=== PATIENT | male | born 1945 | race African-American/Black ===

== ENCOUNTER 2022-08-29 13:20 | Emergency (ER) | payer MEDICARE, SELFPAY ==
--- NOTE | 2022-08-29 13:32 | ED_ITS ---
HPI - General Adult General Chief complaint: Skin/Abscess/Foreign Body Stated complaint: Rash all over body Time Seen by Provider: 08/29/22 13:34 Source: patient Mode of arrival: ambulatory Limitations: no limitations History of Present Illness HPI narrative: Patient is a 76 year old assigned male at with a history of cardiomyopathy presenting to the emergency department today with an eczema flair. Patient st ates that he has very dry skin everywhere that is very itchy. Patient denies any dizziness, lightheadedness, abdominal pain, nausea, vomiting, fever, chills, blurry vision, double vision, loss of vision, chest pain, difficulty breathing, shortness of breath, back pain, night sweats, pain with urination, increased urinary frequency, increased urinary urgency, blood in his urine or stool, syncope or a near syncopal episode, recent trauma or falls, bowel incontinence, bladder incontinence, bowel retention, bladder retention, or any other complaints at this time. Onset (ago): day(s) Severity: mild Severity scale (1-10): 2 Relieving factors: none Exacerbating factors: none Associated symptoms: denies other symptoms Treatments prior to arrival: none Related Data Previous Rx's Medication Instructions Recorded prednisone 20 mg tablet 20 mg PO DAILY 7 days #7 tabs 08/29/22 Allergies Allergy/AdvReac Type Severity Reaction Status Date / Time Penicillins [PENICILLINS] Allergy Intermediate HIVES Verified 08/29/22 13:33 Review of Systems Constitutional: Constitutional: Reports no additional constitutional complaints, Denies chills, Denies fever(s) and Denies night sweats Eyes: Eyes: Reports no additional eye complaints, Denies blurry vision, Denies change in vision, Denies diplopia, Denies eye discharge, Denies loss of vision and Denies eye pain ENT: Denies dizziness Cardiovascular: Cardiovascular: Reports no additional cardiovascular complaints, Denies chest pain, Denies lightheadedness, Denies Loss of Consciousness and Denies dyspnea Respiratory: Respiratory: Reports no additional respiratory complaints and Denies dyspnea Gastrointestinal: Gastrointestinal: Reports no additional gastrointestinal complaints, Denies abdominal pain, Denies melena, Denies hematochezia, Denies change in bowel habits and Denies change in stool character Genitourinary: Genitourinary: Reports no additional male genitourinary complaints, Denies hematuria, Denies oliguria, Denies difficulty urinating, Denies dysuria, Denies urinary frequency, Denies urinary hesitancy, Denies urinary incontinence and Denies urinary urgency Musculoskeletal: Musculoskeletal: Reports no additional musculoskeletal complaints, Denies numbness and Denies tingling Integumentary/Breasts: Skin/Breast: Reports dry skin Neurologic: Denies dizziness, Denies loss of vision, Denies numbness and Denies tingling Psychiatric: Psychiatric: Reports no additional psychiatric complaints Endocrine: Endocrine: Reports no additional endocrine complaints Hematologic/Lymphatic: Hematologic/Lymphatic: Reports no additional hematologic/lymphatic complaints Allergic/Immunologic: Allergic/Immunologic: Reports no additional allergic/immunologic complaints [facility] Past Medical History Attestation statement: The following information was validated with the patient. Source: old records reviewed and nursing notes reviewed Medical History Ischemic cardiomyopathy Social History Social History Advance Directives: No Advance Directives Information Provided: Yes Physical Exam ED Vital Signs: Vital Signs - 24 hr 08/29/22 13:33 Temperature 97.6 F Pulse Rate 65 Respiratory Rate 16 Blood Pressure 142/55 H Pulse Oximetry 98 Oxygen Delivery Method Room Air BMI result Body Mass Index 34.5 Const General: cooperative, no acute distress, alert and awake Nutritional Appearance: well nourished Orientation/consciousness: patient oriented x3 Limitations: no limitations HENMT Head: Yes normal to inspection and Yes atraumatic Ears: hearing grossly normal bilaterally and external ears normal General nose exam: Normal external nose present, no nasal discharge noted and no epistaxis Face and sinus: Yes normal facial exam, No abrasion and No laceration Mouth: Normal oral and palatal mucosa present, no drooling and no muffled voice Eyes General: appearance normal, both eyes and all related structures Periorbital: periorbital findings normal Eyelids: Yes eyelids normal Conjunctivae: conjunctivae normal Pupils: Equal, round and reactive pupils present EOM: EOMs intact bilaterally Neck Neck: Yes normal visual inspection, Yes full ROM and Yes no lymphadenopathy Chest Chest palpation & inspection: normal inspection of the chest Resp Effort & Inspection: normal respiratory effort and able to speak in complete sentences Auscultation: clear to auscultation bilaterally Cardio Rate: regular rate Rhythm: regular rhythm GI Inspection: Yes normal to inspection Neuro General: patient oriented x3 and moves all extremities Cranial nerves: Yes Equal, round and reactive pupils present Cognition (Neuro): normal cognition Motor exam (neuro): 5/5 motor strength present throughout Sensory Exam: Normal double simultaneous stimulation for sensation Coordination: [id number] test normal Extrem General: Yes normal to inspection, Yes full ROM and Yes capillary refill normal Psych Appearance: grossly normal Mental Status: mental status grossly normal Affect: normal affect Attitude: cooperative Thought process: Normal thought process present Thought content: Normal thought content present Insight: Good insight present (Psych) Medical Decision Making Medical Decision Making MDM Narrative: Patient is a 76 year old assigned male at with a history of cardiomyopathy presenting to the emergency department today with en eczema flare. Patient's physical exam showed obviously dry skin but was otherwise unremarkable. I explained my physical exam findings to the patient. I answered all questions asked by the patient. I stressed the importance of the patient taking his medication as prescribed. I stressed the importance of the patient following up with his primary care provider. I stressed the importance of the patient returning to the emergency department immediately if his symptoms were to worsen or if he were to develop any dizziness, shortness of breath, difficulty breathing, chest pain, blurry vision, loss of vision, nausea, vomiting, abdominal pain, fever, chills, back pain, or any other complaints. Patient verbalized agreement and understanding with this treatment plan and discharge. Differential Diagnosis Differential Diagnoses: The differential diagnosis associated with the presentation includes eczema, dry skin Discharge Plan Discharge Clinical Impression: Eczema Patient Disposition: Home, Self-Care Instructions: Dermatitis (ED) Additional Instructions: Follow up with your primary care provider and if symptoms persist, a medical hospital sales. Return to the emergency department immediately if your symptoms worsen or if you develop any dizziness, shortness of breath, difficulty breathing, chest pain, blurry vision, loss of vision, nausea, vomiting, abdominal pain, fever, chills, back pain, or any other complaints. Prescriptions: New prednisone 20 mg tablet 20 mg PO DAILY 7 Days Qty: 7 0RF Print Language: Swiss
[2022-08-29 13:33] VITALS: BP 142/55; PULSE 65; RESP 16; TEMP 36.4; O2SAT 98; BMI 34.5
== END 2022-08-29 13:46 | disposition home or self-care (01) ==
PROVIDERS: Emergency Provider Emergency Medicine
DX: L30.9 Dermatitis, unspecified (principal)
CPT/HCPCS: 99282; 99283

== ENCOUNTER → 2023-02-02 23:59 | Outpatient (BNV) | payer MEDICARE, SELFPAY ==
--- NOTE | 2023-02-06 14:14 | A.OFFVIS_ITS ---
Intake Intake Visit Reasons: Remote ICD Check-[employer] Allergies Penicillins [PENICILLINS] Allergy (Intermediate, Verified 08/29/22 13:33) HIVES COUNT INCLUDES [facility] Medical History Ischemic cardiomyopathy Social History Advance Directives: No Advance Directives Information Provided: Yes Office Procedures Cardiac Device Check Cardiac Device Check Details: Date of service 02/02/2023; Battery life 3 years; normal lead parameters; no treated VT/VF; ; normal ICD function. [id number] Cardiac Interrogation, implant defibrillator w/interim Procedure code (CPT) selection complete Assessment & Plan Assessment & Plan (1) Ischemic cardiomyopathy: Code(s): I25.5 - Ischemic cardiomyopathy Coding Level of Care Code Procedure Only Diagnoses Ischemic cardiomyopathy I25.5 CPT Codes Cardiac Device Check - Cardiac Device 13: [id number] Cardiac Interrogation, implant defibrillator w/interim ([id number])
== END ==
PROVIDERS: Visit Provider Internal Medicine
DX: I25.5 Ischemic cardiomyopathy (principal)
CPT/HCPCS: 93295

== ENCOUNTER → 2023-05-04 23:59 | Outpatient (BNV) | payer MEDICARE, SELFPAY ==
--- NOTE | 2023-05-06 13:13 | A.OFFVIS_ITS ---
Intake Intake Visit Reasons: Remote ICD Check- [employer] Allergies Penicillins [PENICILLINS] Allergy (Intermediate, Verified 08/29/22 13:33) HIVES [facility] Medical History Ischemic cardiomyopathy Social History Advance Directives: No Advance Directives Information Provided: Yes Office Procedures Cardiac Device Check Cardiac Device Check Details: Date of service 05/04/2023; Battery life 3 years; normal lead parameters; no treated VT/VF; ; normal ICD function. [id number] Cardiac Interrogation, implant defibrillator w/interim Procedure code (CPT) selection complete Assessment & Plan Assessment & Plan (1) Ischemic cardiomyopathy: Code(s): I25.5 - Ischemic cardiomyopathy Coding Level of Care Code Procedure Only Diagnoses Ischemic cardiomyopathy I25.5 CPT Codes Cardiac Device Check - Cardiac Device 13: [id number] Cardiac Interrogation, implant defibrillator w/interim ([id number])
== END ==
PROVIDERS: Visit Provider Internal Medicine
DX: I25.5 Ischemic cardiomyopathy (principal); Z95.810 Presence of automatic (implantable) cardiac defibrillator
CPT/HCPCS: 93295

== ENCOUNTER 2023-06-03 08:53 | Outpatient (REF) | payer MEDICARE, SELFPAY ==
[2023-06-03 12:08] LABS: Cholesterol 94 mg/dL (<200); Estimated Average Glucose 123 mg/dL; HDL Cholesterol 31 mg/dL (>40); Hemoglobin A1c % 5.9 % (<6.0); LDL Cholesterol Calculated 52 mg/dL (<100); Triglycerides 56 mg/dL (<150)
[2023-06-03 12:49] LABS: Anion Gap 13 (12-20); Blood Urea Nitrogen 25 mg/dL (9-16); Calcium 8.9 mg/dL (8.4-10.2); Carbon Dioxide 26 mmol/L (22-29); Chloride 107 mmol/L (96-108); Estimated Glomerular Filt Rate 57; Glucose Random 87 mg/dL (60-115); Potassium 4.4 mmol/L (3.3-5.1); Sodium 142 mmol/L (135-145); Vitamin D 25-OH Total 27.9 ng/mL (>30)
[2023-06-03 13:39] LABS: Reflex LDLD? No
== END 2023-06-03 08:54 | disposition home or self-care (01) ==
LOC: HO.HHCL 08:53
PROVIDERS: Visit Provider Internal Medicine
DX: E66.9 Obesity, unspecified (principal); E55.9 Vitamin D deficiency, unspecified; I11.0 Hypertensive heart disease with heart failure; I50.22 Chronic systolic (congestive) heart failure
CPT/HCPCS: 36415; 80048; 80061; 82306; 83036

== ENCOUNTER → 2023-08-03 23:59 | Outpatient (BNV) | payer MEDICARE, SELFPAY ==
--- NOTE | 2023-08-04 11:35 | A.OFFVIS_ITS ---
Intake Intake Visit Reasons: Remote ICD Check- [employer] Allergies Penicillins [PENICILLINS] Allergy (Intermediate, Verified 08/29/22 13:33) HIVES [facility] Medical History Ischemic cardiomyopathy Office Procedures Cardiac Device Check Cardiac Device Check Details: Date of service 08/03/2023; Battery life 2.5 years; normal lead parameters; no treated VT/VF; ; normal ICD function. [id number] Cardiac Interrogation, implant defibrillator w/interim Procedure code (CPT) selection complete Assessment & Plan Assessment & Plan (1) Ischemic cardiomyopathy: Code(s): I25.5 - Ischemic cardiomyopathy Plan x Coding Level of Care Code Procedure Only Diagnoses Ischemic cardiomyopathy I25.5 CPT Codes Cardiac Device Check - Cardiac Device 13: [id number] Cardiac Interrogation, implant defibrillator w/interim ([id number])
== END ==
PROVIDERS: Visit Provider Internal Medicine
DX: I25.5 Ischemic cardiomyopathy (principal); Z95.810 Presence of automatic (implantable) cardiac defibrillator
CPT/HCPCS: 93295

== ENCOUNTER → 2023-11-02 23:59 | Outpatient (BNV) | payer MEDICARE, SELFPAY ==
--- NOTE | 2023-11-07 17:23 | A.OFFVIS_ITS ---
Intake Visit Reasons: [employer] ICD check- [employer] Allergies Penicillins [PENICILLINS] Allergy (Intermediate, Verified 08/29/22 13:33) HIVES [facility] Medical History Ischemic cardiomyopathy Office Procedures Cardiac Device Check Cardiac Device Check Details: Date of service 11/02/2023; Battery life 2.5 years; normal lead parameters; no treated VT/VF; ; normal ICD function. [id number] Cardiac Interrogation, implant defibrillator w/interim Procedure code (CPT) selection complete Assessment & Plan Assessment & Plan (1) Ischemic cardiomyopathy: Code(s): I25.5 - Ischemic cardiomyopathy Category: Medical Plan x Coding Level of Care Code Procedure Only Diagnoses Ischemic cardiomyopathy I25.5 CPT Codes Cardiac Device Check - Cardiac Device 13: [id number] Cardiac Interrogation, implant defibrillator w/interim ([id number])
== END ==
PROVIDERS: Visit Provider Internal Medicine
DX: I25.5 Ischemic cardiomyopathy (principal); Z95.810 Presence of automatic (implantable) cardiac defibrillator
CPT/HCPCS: 93295

== ENCOUNTER 2023-11-20 12:27 | Inpatient (IN) | payer MEDICARE, SELFPAY ==
--- NOTE | 2023-11-20 | ECG_ITS ---
Test Reason : CHF, BASELINE Blood Pressure : / mmHG Vent. Rate : 084 BPM Atrial Rate : 000 BPM P-R Int : 000 ms QRS Dur : 106 ms QT Int : 368 ms P-R-T Axes : 000 -40 173 degrees QTc Int : 434 ms Atrial fibrillation with premature ventricular or aberrantly conducted complexes Left axis deviation Anterolateral infarct (cited on or before 04-AUG-2019) Abnormal ECG When compared with ECG of 04-AUG-2019 16:04, Atrial fibrillation has replaced Sinus rhythm QRS voltage has decreased Questionable change in initial forces of Lateral leads Referred By: Ayaan Henderson Electronically Signed By:DALE WHITEHEAD MD
--- NOTE | ~2023-11-20 | CT_ITS ---
EXAMINATION: CT FOREARM WITH CONTRAST, RIGHT CLINICAL INFORMATION: cellulitis, ?compartment syndrome, ivda COMPARISON: None available. TECHNIQUE: Helical CT through the right forearm with coronal and sagittal reformats after the uneventful administration of 85 mL Omnipaque [address] examination was performed using dose optimization techniques as appropriate, variously including the following: *Automated exposure control *Adjustment of mA and/or kV according to patient size (this includes techniques or standardized protocols for targeted exams where dose is matched to indication/reason for exam; i.e. extremities or head) *Use of iterative reconstruction technique DLP: 118 mGy-cm FINDINGS: The brachial arteries are patent. There is a short segments of the ulnar and radial artery with diminutive opacification, though this could represent artifact. Otherwise, the below elbow arteries are patent to the hand. The visualized superficial and deep venous system appears patent. There is extensive diffuse circumferential soft tissue edema involving the entirety of the visualized arm. No focal soft tissue or intramuscular fluid collection to suggest abscess. No acute osseous abnormality. CT/CT forearm RT w IV con IMPRESSION: 1. Extensive diffuse circumferential soft tissue edema involving the entirety of the visualized arm. No focal soft tissue or intramuscular fluid collection to suggest abscess. 2. Short segments of the ulnar and radial artery with diminutive opacification, though this could represent artifact. Otherwise, the below elbow arteries are patent to the hand. Clinical correlation for compartment syndrome would be helpful.
--- NOTE | ~2023-11-20 | US_ITS ---
EXAMINATION: US TRIPLEX UPPER EXTREMITY, RIGHT CLINICAL INFORMATION: Swelling and pain COMPARISON: None available. TECHNIQUE: Color-flow triplex imaging with spectral analysis and compression Doppler was performed on the right upper extremity. FINDINGS: The right internal jugular, subclavian, and axillary veins are patent and free of thrombus. The imaged segment of the right brachiocephalic vein is patent. Spectral doppler waveforms are normal. The brachial, basilic, cephalic, radial, and ulnar veins are patient and compressible. US/US venous duplex UE RT IMPRESSION: No evidence of deep venous thrombosis involving the right upper extremity.
--- NOTE | ~2023-11-20 | US_ITS ---
EXAMINATION: US VENOUS WITH DOPPLER UPPER EXTREMITY, RIGHT CLINICAL INFORMATION: Swelling evaluate for deep vein thrombosis COMPARISON: CT right forearm November 2023 TECHNIQUE: Ultrasound of the upper extremity is performed using compression sonography and color and pulse Doppler flow with assessment of augmentation of flow. There is also imaging and Doppler assessment of the jugular and subclavian veins. Spectral analysis with color-flow imaging is performed. FINDINGS: Respiratory variation, normal compression, and augmented flow are noted throughout the upper extremity including the axillary, brachial, cubital, and radial and ulnar veins. There is normal flow in the internal jugular and subclavian veins. There is no visible deep or superficial thrombophlebitis. If the patient's symptoms progress, a followup ultrasound in 5 -7 days might be of value to exclude proximal propagation from a nonvisualized distal arm vein. In the subcutaneous soft tissues there is a cobblestone appearance compatible with edema US/US venous duplex UE RT IMPRESSION: No DVT demonstrated in the right upper extremity Probable edema in the subcutaneous soft tissues.
--- NOTE | ~2023-11-20 | XR_ITS ---
EXAMINATION: XR CHEST CLINICAL INFORMATION: Reason for Exam Anasarca COMPARISON: Chest radiograph 08/04/2019 TECHNIQUE: One view of the chest FINDINGS: Lines and tubes: Left chest wall single-lead cardiac AICD. EKG leads overlie the patient. Clear lungs. No pleural effusion. No pneumothorax. Cardiac silhouette is mildly enlarged unchanged from prior. XR/XR chest 1V IMPRESSION: 1. Clear lungs. 2. Cardiac silhouette is mildly enlarged unchanged from prior.
--- NOTE | ~2023-11-20 | CT_ITS ---
EXAMINATION: CT head/brain wo IV con CLINICAL INFORMATION: AMS COMPARISON: CT head 08/04/2019 TECHNIQUE: Contiguous axial imaging was performed from the skull base to vertex without intravenous contrast. This CT examination was performed using dose optimization techniques as appropriate, variously including the following: * Automated exposure control * Adjustment of mA and/or kV according to patient size (this includes techniques or standardized protocols for targeted exams where dose is matched to indication/reason for exam; i.e. extremities or head) * Use of iterative reconstruction technique DLP: 748 mGy-cm. FINDINGS: There is no evidence of acute intracranial hemorrhage or territorial infarction. Nicole to white matter differentiation is well preserved. No abnormal mass effect or midline shift is seen. No extra-axial fluid collections are identified. No hydrocephalus. Mineralizations of the left greater than right basal ganglia. Proportional prominence of the ventricles and sulcal spaces is consistent with mild to moderate volume loss. Patchy periventricular and deep white matter hypoattenuation is consistent with moderate small vessel ischemic changes. The cerebellar tonsils are well positioned. No acute osseous or soft tissue abnormality. Motion artifact limits evaluation of the orbits and paranasal sinuses. There is a small mucus retention cyst in the posterior right maxillary sinus. The mastoid air cells are well-aerated. CT/CT head/brain wo IV con IMPRESSION: 1. No acute intracranial pathology. 2. Chronic small vessel ischemic disease and volume loss.
[2023-11-20 12:48] VITALS: BP 162/98; BP 177/96; PULSE 82; PULSE 86; RESP 18; TEMP 36.6; O2SAT 100; O2SAT 97; BMI 35.3
[2023-11-20 13:56] LABS: MANUAL DIFF FLAG NO
--- NOTE | 2023-11-20 13:57 | ED_ITS ---
HPI - General Adult General Chief complaint: General Medical Stated complaint: BUE SWELLING,BLE SWELLING/WEEPING,SOB,HEROIN @7AM Time Seen by Provider: 11/20/23 13:32 Source: patient and EMS Mode of arrival: EMS Limitations: physical limitation History of Present Illness ED Provider: DR. Jones HPI narrative: A 78-year-old male brought in from home by EMS after neighbor called PD to check on the patient. Apparently patient is not caring for himself well, patient lives home alone no family around stated that a friend come visit him daily and provide him with heroin everyday patient admitted to snorting 2 bags of heroin today. denies IV D use, admitted to sedentary life style. Patient during the exam appeared disheveled and unkempt with diffuse edema, patient is complaining of right upper extremity swelling and pain. Patient is a poor historian unable to give sufficient information but able to decline fever. Patient complained of shortness of breath especially if he lays supine. Related Data Home Medications ?Medication ?Instructions ?Recorded ?Confirmed atorvastatin 40 mg tablet 40 mg PO BEDTIME 11/20/23 11/20/23 carvedilol 25 mg tablet 25 mg PO BIDWM 11/20/23 11/20/23 ergocalciferol (vitamin D2) 1,250 1,250 mcg PO PATTERSON@0900 11/20/23 11/20/23 mcg (50,000 unit) capsule lisinopril 40 mg tablet 40 mg PO BEDTIME 11/20/23 11/20/23 Allergies Allergy/AdvReac Type Severity Reaction Status Date / Time Penicillins [PENICILLINS] Allergy Intermediate HIVES Verified 11/20/23 12:49 Review of Systems 2 Review of Systems: All other systems are reviewed and are negative Constitutional: Reports as per HPI and Reports no additional constitutional complaints Eyes: Reports as per HPI and Reports no additional eye complaints Reports system reviewed and no additional complaints, except as documented Cardiovascular: Reports as per HPI and Reports no additional cardiovascular complaints Respiratory: Reports as per HPI and Reports no additional respiratory complaints Gastrointestinal: Reports as per HPI and Reports no additional gastrointestinal complaints Genitourinary: Reports no additional female genitourinary complaints Musculoskeletal: Reports no additional musculoskeletal complaints Skin/Breast: Reports system reviewed and no additional complaints, except as docu Psychiatric: Reports no additional psychiatric complaints Endocrine: Reports no additional endocrine complaints Hematologic/Lymphatic: Reports no additional hematologic/lymphatic complaints Allergic/Immunologic: Reports no additional allergic/immunologic complaints Reports system reviewed and no additional complaints, except as documented and Reports Abnormal speech present [facility] Past Medical History Medical History Ischemic cardiomyopathy Social History Social History Household Members: None Housing: Apartment Do you presently have visiting nurse or other home services: No Patient Tobacco Use Status: Never used Tobacco Smoked in Last 30 Days: No Patient Interested in Nicotine Replacement: No Patient Given Instructions on How to Stop Smoking: No Second Hand Smoke Exposure: No Use of substances other than those prescribed or required for medical reasons: Yes Substance Use Type: Heroin Substance Use Frequency: Daily Currently Displaying Signs/Symptoms of Drug Intoxication Withdrawal: No Have you been hit, kicked, punched, or otherwise hurt by someone within the past year? If so, by whom?: No Do you feel safe in your current relationship?: No Current Relationship Is there a partner from a previous relationship who is making you feel unsafe now?: No Are you made to feel afraid or neglected: No Advance Directives: No Advance Directives Information Provided: Yes Do you have a plan to hurt others: No Plan Recently lost weight without trying: Unsure Eating poorly because of decreased appetite: No Nutrition Risks: No Nutritional Risk Poor oral hygiene: Yes Physical Exam ED Vital Signs: Vital Signs - 24 hr 11/20/23 12:48 11/20/23 15:21 11/20/23 17:40 Temperature 97.8 F Pulse Rate 86 85 Respiratory Rate 18 20 Blood Pressure 177/96 H 162/92 H 164/87 H Pulse Oximetry 100 98 Oxygen Delivery Method Room Air Room Air 11/20/23 21:44 Temperature Pulse Rate 87 Respiratory Rate 22 H Blood Pressure 171/90 H Pulse Oximetry 96 Oxygen Delivery Method Room Air BMI result Body Mass Index 35.3 Vital signs have been reviewed and appear to be correct. Blood pressure elevated. Heart rate normal. Respiratory rate normal. Temperature normal. Oxygen saturation normal. Appearance: Disheveled, unkempt, alert, oriented to place. No acute distress. Head: Normal external exam. Normocephalic. Atraumatic. No Velazco signs noted. No raccoon eyes noted Eyes: PERRLA. EOMI. Conjunctiva and sclera normal. Eyelids normal. ENT: TM's Normal. Pharynx normal. Uvula midline. Moist mucous membranes. No trismus noted. No drooling noted. No muffled voice noted. Neck: JVD bilaterally, Normal inspection. Neck supple. FROM. No adenopathy. Thyroid Normal. No meningeal signs. No neck mass noted. CVS: Normal heart rate and rhythm. Heart sound normal. No murmurs noted. Pulses normal throughout. Respiratory: No respiratory distress. Painless inspiration. Breath sounds normal. Bilateral basilar rales. Chest nontender. No accessory muscle usage noted or decreased air movement noted. Abdomen: Soft and nontender. Bowel sounds normal in all 4 quadrants. No distention noted. No organomegaly noted. No visible injury noted. : Significant Penile and scrotal edema Back: No CVA tenderness. Full range of motion noted. Skin: Skin warm and dry. Normal skin color. Normal skin turgor. No rashes/lesions/lacerations noted. Extremities: +3 pitting 4 extremities edema. Extremities exhibit normal range of motion. Diffuse tenderness along her right upper extremity with diffuse edema, no deformity, no step-off, unable to appreciate redness on the exam due to patient's dark skin color. Neuro: Oriented X1 only to place Cranial nerve exam: II-XII are grossly intact No motor deficit. No sensory deficit. Reflexes normal. Course Reevaluation(s) Reevaluation #1: 78-year-old male with anasarca, physical exam and chest x-ray are consistent with congestive heart failure. right arm pain and swelling which i believe a part of generalized anasarca and fluid retention, i don't appreciate cellulitis. lactic acidosis due to chronic ishemic cardiomyopathy, no spesis or septic shock at this moment. Will admit for diuresis. Time: 16:19 Medications Administered Generic Name Dose Route Start Last Admin Trade Name Freq PRN Reason Stop Dose Admin Atorvastatin Calcium 40 mg 11/20/23 21:00 11/20/23 20:45 Atorvastatin Calcium 40 Mg Tablet PO Not Given BEDTIME [facility] Carvedilol 25 mg 11/20/23 18:35 11/20/23 20:45 Carvedilol 25 Mg Tablet PO Not Given BIDWM [facility] Protocol Ergocalciferol 1,250 mcg 11/21/23 09:00 11/21/23 09:51 Ergocalciferol (Vitamin D2) 1,250 Mcg Capsule PO Not Given PATTERSON@0900 [facility] Heparin Sodium (Porcine) 5,000 unit 11/21/23 09:00 11/21/23 09:51 Heparin Sodium,Porcine 5,000 Unit/Ml Vial SUBCUT 5,000 unit Q8H OSCAR Administration Albumin Human 100 mls @ 100 mls/hr 11/20/23 23:00 11/21/23 08:39 Kedbumin 25 % IV 11/21/23 17:59 Infused Q6H [facility] Infusion Furosemide 200 mg/ Sodium 100 mls @ 2.5 mls/hr 11/20/23 23:00 11/21/23 01:42 Chloride IVCONT 5 mg/hr .Q24H OSCAR 2.5 mls/hr Administration 5 MG/HR Ceftriaxone Sodium 1 gm/ 50 mls @ 100 mls/hr 11/21/23 06:00 11/21/23 06:04 Sodium Chloride IV Infused Q24H [facility] Infusion Doxycycline Hyclate 100 mg/ 250 mls @ 166.67 mls/hr 11/21/23 09:45 11/21/23 10:07 Sodium Chloride IV 166.67 mls/hr Q12H [facility] Administration Lisinopril 40 mg 11/20/23 21:00 11/20/23 20:45 Lisinopril 40 Mg Tablet PO Not Given BEDTIME [facility] Protocol Sodium Chloride 3 ml 11/21/23 00:00 11/21/23 08:39 0.9 % Sodium Chloride Flush 3 Ml Syringe IVFLUSH Not Given QSHIFT OSCAR Discontinued Medications Generic Name Dose Route Start Last Admin Trade Name Freq PRN Reason Stop Dose Admin Furosemide 60 mg 11/20/23 13:55 11/20/23 15:21 Furosemide 100 Mg/10 Ml Vial IVPUSH 11/20/23 13:56 60 mg ONCE ONE Administration Protocol Sodium Chloride 1,000 mls @ 999 mls/hr 11/20/23 19:15 11/20/23 21:54 Ns IV 11/20/23 20:15 Infused .Q1H1M ONE Infusion Vancomycin HCl 2,000 mg in 500 mls @ 250 mls/hr 11/20/23 19:15 11/21/23 01:45 Vancomycin/Ns IV 11/20/23 21:14 Infused ONCE ONE Infusion Piperacillin Sod/Tazobactam 100 mls @ 200 mls/hr 11/20/23 19:31 11/20/23 21:54 Sod 4.5 gm/ Sodium Chloride IV 11/20/23 20:00 Infused ONCE ONE Infusion Iohexol 85 ml 11/20/23 20:36 11/20/23 20:37 Iohexol 350 Mg/Ml 100 Ml Infus..Btl IV 11/20/23 20:37 85 ml ONCE ONE Administration Medical Decision Making Medical Decision Making [facility] Narrative: 1900: Hospitalist requested to re-evaluate the patient for right forearm swelling and pain on examination patient has significant cellulitis of the right hand with pain in both active and passive movements will get CT scan of the forearm rule out compartment syndrome/deeper fluid collection get CT scan of the head also for EMS started on vancomycin and Zosyn CT scan of the forearm showed cellulitis changes no fluid collection no signs of compartment syndrome patient received IV fluids and antibiotics as congestive heart failure fluid in was given restrict because of the CHF with normal WBC count Differential Diagnosis Differential Diagnoses: The differential diagnosis associated with the presentation includes (Anasarca, CHF, ischemic cardiomyopathy, pleural effusion, pneumonia, pneumothorax, DVT of right UE, electrolyte derangement, severe anemia.) Admission/Observation Consideration of admission/observation: Escalation of care including admission/observation considered Consult Healthcare Provider Management of the patient was discussed with: Hospitalist (Dr. Tariq) Lab Data [facility] Lab Attestation statement: I reviewed the patient's lab results. 11/20/23 13:47 11/20/23 13:47 Labs: Lab Results 11/20/23 11/20/23 11/20/23 Range/Units 13:47 17:23 19:42 WBC 10.1 (4.8-10.8) X10*3/uL RBC 5.63 (4.60-5.80) X10*6/uL Hgb 16.1 (14.0-18.0) g/dl Hct 51.0 (42.0-52.0) % MCV 90.6 (80.0-98.0) fL MCH 28.6 (27.0-33.0) pg MCHC 31.6 (31.0-36.0) g/dl RDW 20.5 H (11.0-16.0) % Plt Count 132 L (160-400) X10*3/uL MPV 11.7 (9.4-12.4) fL Immature Gran % (Auto) 0.3 (0.0-0.4) % Neut % (Auto) 82.5 H (45-73) % Lymph % (Auto) 8.4 L (20-40) % [place] % (Auto) 7.6 (2-11) % Eos % (Auto) 0.8 (0-4) % Baso % (Auto) 0.4 (0-2) % Lymph # (Auto) 0.9 L (1.2-4.9) X10*3/uL [place] # (Auto) 0.8 (0.1-1.2) X10*3/uL Eos # (Auto) 0.1 (0.0-0.4) X10*3/uL Baso # (Auto) 0.0 (0.0-0.2) X10*3/uL Abs Immat Gran (auto) 0.03 (0.00-0.03) X10*3/uL Absolute Neuts (auto) 8.3 (2.0-8.3) x10*3/uL Absolute Nucleated RBC 0.000 (0.0-0.012) X10*3/uL Nucleated RBC % (auto) 0.0 (0.0-0.2) /100WBC PT 23.5 H (11.1-13.3) SEC INR 1.9 H (0.9-1.1) VBG pH 7.41 (7.32-7.43) VBG pCO2 42 mmHg VBG pO2 41 mmHg VBG HCO3 27 H (22-26) mmol/L VBG O2 Saturation 63.0 % VBG Base Excess 2.7 mmol/L Sodium 142 (135-145) mmol/L Potassium 4.2 (3.3-5.1) mmol/L Chloride 107 (96-108) mmol/L Carbon Dioxide 22 (22-29) mmol/L Anion Gap 17 (12-20) BUN 20 H (9-16) mg/dL Creatinine 1.10 (0.5-1.4) mg/dL Estim Creat Clear Calc 80.1 Estimated GFR > 60 Random Glucose 64 (60-115) mg/dL Lactic Acid 4.0 H* (0.5-2.0) mmol/L Lactic Acid F/U @ 2Hr 4.0 H* (0.5-2.0) mmol/L Calcium 8.7 (8.4-10.2) mg/dL Magnesium 2.3 (1.6-2.6) mg/dL Total Bilirubin 3.0 H (0.0-1.0) mg/dL AST 19 (5-37) U/L ALT 12 (0-40) U/L Alkaline Phosphatase 120 H (39-117) U/L Ammonia 53 (13-55) umol/L Total Creatine Kinase 55 (38-174) U/L Troponin I High Sens 10.3 (<3.5-35.0) ng/L B-Natriuretic Peptide 2913 H (<100) pg/mL Total Protein 7.1 (6.5-8.0) g/dL Albumin 3.2 L (3.5-5.0) g/dL Lipase 9 (8-78) U/L TSH 1.97 (0.32-4.0) uIU/mL Urine Color Yellow Urine Appearance Clear Urine pH 6.5 (5.0-9.0) Ur Specific [place] 1.010 (1.005-1.025) Urine Protein Negative (Neg-Trace) mg/dL Urine Glucose (UA) Negative (Negative) mg/dL Urine Ketones Negative (Negative) mg/dL Urine Blood Negative (Negative) Urine Nitrite Negative (Negative) Ur Leukocyte Esterase Trace H (Negative) Urine RBC 0-2 (0-2) /HPF Urine WBC 0-5 (0-5) /HPF Ur Squamous Epith Cells 0-2 (0-2) /HPF Urine Bacteria Trace (None Seen) Hyaline Casts 0-2 (0-2) /LPF Salicylates < 5.0 L (15-30) mg/dL Urine Opiates Screen POSITIVE H (Not Detect) Ur Buprenorphine Scrn Not Detected (Not Detect) ng/mL Ur Oxycodone Screen Not Detected (Not Detect) ng/mL Urine Methadone Screen Not Detected (Not Detect) ng/mL Urine Fentanyl Screen POSITIVE H (Not Detect) Acetaminophen < 3 (<30) mcg/mL Ur Barbiturates Screen Not Detected (Not Detect) Ur Phencyclidine Scrn Not Detected (Not Detect) Ur Amphetamines Screen Not Detected (Not Detect) U Benzodiazepines Scrn Not Detected (Not Detect) Urine Cocaine Screen POSITIVE H (Not Detect) U Marijuana (THC) Screen Not Detected (Not Detect) COVID-19 (DANIELLA) Negative (Negative) COVID-19 Clin Com See Note Independent Interpretation I performed an independent interpretation of an: Plain X-Ray (Chest: Cardiomegaly,clear lungs) and Ultrasound (venous right UE: no dvt) Radiology Impression Discussion of test interpretation with radiology: I have reviewed the radiologist's reading. Chronic Conditions Patient?s care impacted by: Other (sedentary life style) Discharge Plan Discharge Clinical Impression: Anasarca, CHF (congestive heart failure), Cellulitis of right forearm Patient Disposition: Admitted As Inpatient Interventions: Admission Worksheet (ED) Last Done: 11/21/23 08:18 Discharge Date/Time: 11/21/23 09:00
[2023-11-20 13:59] LABS: Basophils Percent Auto 0.4 % (0-2); Eosinophils Absolute Auto 0.1 X10*3/uL (0.0-0.4); Eosinophils Percent Auto 0.8 % (0-4); Hemoglobin 16.1 g/dl (14.0-18.0); Imm Gran Abs Auto 0.03 X10*3/uL (0.00-0.03); Imm Gran Pct Auto 0.3 % (0.0-0.4); Lymphocytes Absolute Auto 0.9 X10*3/uL (1.2-4.9); Lymphocytes Percent Auto 8.4 % (20-40); Mean Corpuscular HGB Conc 31.6 g/dl (31.0-36.0); Mean Corpuscular Hemoglobin 28.6 pg (27.0-33.0); Mean Corpuscular Volume 90.6 fL (80.0-98.0); Mean Platelet Volume 11.7 fL (9.4-12.4); Monocytes Absolute Auto 0.8 X10*3/uL (0.1-1.2); Monocytes Percent Auto 7.6 % (2-11); Neutrophils Absolute Auto 8.3 x10*3/uL (2.0-8.3); Neutrophils Percent Auto 82.5 % (45-73); Platelet Count 132 X10*3/uL (160-400); Red Blood Count 5.63 X10*6/uL (4.60-5.80); Red Cell Distribution Width 20.5 % (11.0-16.0); White Blood Count 10.1 X10*3/uL (4.8-10.8)
[2023-11-20 14:21] LABS: COVID-19 Test Negative (Negative); IDNOW Serial# 08D9AD1C
[2023-11-20 14:24] LABS: Acetaminophen LAB < 3 mcg/mL (<30); Salicylate < 5.0 mg/dL (15-30)
[2023-11-20 14:25] LABS: Alanine Aminotransferase 12 U/L (0-40); Albumin Level 3.2 g/dL (3.5-5.0); Alkaline Phosphatase 120 U/L (39-117); Ammonia 53 umol/L (13-55); Anion Gap 17 (12-20); Aspartate Amino Transferase 19 U/L (5-37); Blood Urea Nitrogen 20 mg/dL (9-16); Calcium 8.7 mg/dL (8.4-10.2); Carbon Dioxide 22 mmol/L (22-29); Chloride 107 mmol/L (96-108); Creatinine Clr Calc Pharmacy 80.1; Estimated Glomerular Filt Rate > 60; Glucose Random 64 mg/dL (60-115); Lipase 9 U/L (8-78); Magnesium 2.3 mg/dL (1.6-2.6); Potassium 4.2 mmol/L (3.3-5.1); Sodium 142 mmol/L (135-145); Total Protein 7.1 g/dL (6.5-8.0)
[2023-11-20 15:21] VITALS: BP 162/92
[2023-11-20] MEDS: Furosemide 100 MG/10 ML VIAL 60 MG IVPUSH (15:21)
[2023-11-20 15:51] LABS: INTERNATIONAL NORM RATIO 1.9 (0.9-1.1); Prothrombin Time 23.5 SEC (11.1-13.3)
[2023-11-20 15:54] LABS: Reflex Lactate? Lactic Acid Added
[2023-11-20 16:06] LABS: B Type Natriuretic Peptide 2913 pg/mL (<100); Troponin-I High Sensitivity 10.3 ng/L (<3.5-35.0)
--- NOTE | 2023-11-20 17:00 | PC.NURSE ---
Pt noted to be lethargic, arousable to speech. Pt noted to have significant swelling to body, + JVD. BP hypertensive. Pt reports 10/10 pain to right arm, noted to be red.
--- NOTE | 2023-11-20 17:23 | PC.NURSE ---
Urine output of approx 1500 mL at this time.
--- NOTE | 2023-11-20 17:31 | PC.NURSE ---
Phelbotomy to attempt repeat lactic draw
[2023-11-20 17:40] VITALS: BP 164/87; PULSE 85; RESP 20; O2SAT 98
[2023-11-20 17:44] LABS: Amphetamine Screen Urine Not Detected (Not Detect); Barbiturates, Urine Not Detected (Not Detect); Benzodiazepines Screen Urine Not Detected (Not Detect); Buprenorphine Scr Not Detected (Not Detect); Cannabinoid Screen Urine Not Detected (Not Detect); Cocaine Screen Urine POSITIVE (Not Detect); Fentanyl, urine POSITIVE (Not Detect); Methadone Screen, Urine Not Detected (Not Detect); Opiate Screen Urine POSITIVE (Not Detect); Oxycodone Screen Urine Not Detected (Not Detect); Phencyclidine Screen Urine Not Detected (Not Detect)
[2023-11-20 17:52] LABS: Appearance Urine Clear; Color Urine Yellow; Glucose Urine UA Negative (Negative); Leukocyte Esterase Urine Trace (Negative); Nitrite Urine Negative (Negative); PH 6.5 (5.0-9.0); UMIC TRIGGER UACC YES; Urine Blood Negative (Negative); Urine Ketones Negative (Negative); Urine Protein Negative (Neg-Trace)
--- NOTE | 2023-11-20 17:55 | PHA.MEDREC ---
Pharmacy Consult ? Medication Reconciliation Pharmacy has completed the medication reconciliation. Patient attests to taking all medbox meds.
[2023-11-20 18:01] LABS: Bacteria Urine Trace (None Seen); Hyaline Casts Urine 0-2 /LPF (0-2); RBC Urine 0-2 /HPF (0-2); Squamous Epithelial Cell Urine 0-2 /HPF (0-2); WBC Urine 0-5 /HPF (0-5)
--- NOTE | 2023-11-20 18:27 | P.HPHOSP_ITS ---
History of Present Illness Date of Service: 11/20/23 Attending physician on admission: Ulises Tariq Chief Complaint: SOB, diffuse edema Pt is a 78-year-old female with a PMH significant for?ischemic cardiomyopathy with ICD in place, HLD, HTN, and opioid use disorder who presents to the ED with? In the ED pt was hypertensive up to 177/96, vitals otherwise WNL. Labs were significant for lactic acid 4.0, bilirubin 3.0, and alk-phos 120, BNP 2913, and albumin 3.2. Tox screen positive for opiates, fentanyl, and cocaine. CXR showed clear lungs without pleural effusion. Venous duplex of right upper extremity found no evidence for DVT. EKG demonstrated Pt was treated with Pt will be [facility] Medical History Ischemic cardiomyopathy Social History Smoked in Last 30 Days: No Use of substances other than those prescribed or required for medical reasons: Yes Substance Use Type: Heroin Substance Use Frequency: Daily Advance Directives: No Advance Directives Information Provided: Yes Do you have a plan to hurt others: No Plan Meds Allergies Allergy/AdvReac Type Severity Reaction Status Date / Time Penicillins [PENICILLINS] Allergy Intermediate HIVES Verified 11/20/23 12:49 Home Medications ?Medication ?Instructions ?Recorded ?Confirmed ?Last Taken ?Type atorvastatin 40 mg tablet 40 mg PO BEDTIME 11/20/23 11/20/23 Unknown History carvedilol 25 mg tablet 25 mg PO BIDWM 11/20/23 11/20/23 Unknown History ergocalciferol (vitamin D2) 1,250 1,250 mcg PO PATTERSON@0900 11/20/23 11/20/23 Unknown History mcg (50,000 unit) capsule lisinopril 40 mg tablet 40 mg PO BEDTIME 11/20/23 11/20/23 Unknown History Physical Exam 2 Vital Signs and Narrative: Vital Signs: Last Vital Signs Temp 97.8 F 11/20/23 12:48 Pulse 85 11/20/23 17:40 Resp 20 11/20/23 17:40 BP 164/87 H 11/20/23 17:40 Pulse Ox 98 11/20/23 17:40 O2 Del Method Room Air 11/20/23 17:40 BMI result Body Mass Index 35.3 Results Labs 11/20/23 13:47 11/20/23 13:47 Labs: Laboratory Results - last 24 hr 11/20/23 11/20/23 13:47 17:23 MCV 90.6 MCH 28.6 MCHC 31.6 RDW 20.5 H Plt Count 132 L MPV 11.7 Immature Gran % (Auto) 0.3 Neut % (Auto) 82.5 H Lymph % (Auto) 8.4 L [place] % (Auto) 7.6 Eos % (Auto) 0.8 Baso % (Auto) 0.4 Lymph # (Auto) 0.9 L [place] # (Auto) 0.8 Eos # (Auto) 0.1 Baso # (Auto) 0.0 Abs Immat Gran (auto) 0.03 Absolute Neuts (auto) 8.3 Absolute Nucleated RBC 0.000 Nucleated RBC % (auto) 0.0 PT 23.5 H INR 1.9 H Anion Gap 17 Estim Creat Clear Calc 80.1 Estimated GFR > 60 Random Glucose 64 Lactic Acid 4.0 H* Calcium 8.7 Magnesium 2.3 Total Bilirubin 3.0 H AST 19 ALT 12 Alkaline Phosphatase 120 H Ammonia 53 Total Creatine Kinase 55 Troponin I High Sens 10.3 B-Natriuretic Peptide 2913 H Total Protein 7.1 Albumin 3.2 L Lipase 9 Urine Color Yellow Urine Appearance Clear Urine pH 6.5 Ur Specific [place] 1.010 Urine Protein Negative Urine Glucose (UA) Negative Urine Ketones Negative Urine Blood Negative Urine Nitrite Negative Ur Leukocyte Esterase Trace H Urine RBC 0-2 Urine WBC 0-5 Ur Squamous Epith Cells 0-2 Urine Bacteria Trace Hyaline Casts 0-2 Salicylates < 5.0 L Urine Opiates Screen POSITIVE H Ur Buprenorphine Scrn Not Detected Ur Oxycodone Screen Not Detected Urine Methadone Screen Not Detected Urine Fentanyl Screen POSITIVE H Acetaminophen < 3 Ur Barbiturates Screen Not Detected Ur Phencyclidine Scrn Not Detected Ur Amphetamines Screen Not Detected U Benzodiazepines Scrn Not Detected Urine Cocaine Screen POSITIVE H U Marijuana (THC) Screen Not Detected COVID-19 (DANIELLA) Negative COVID-19 Clin Com See Note Imaging Radiologist's Impressions: Impressions Venous Duplex 11/20/23 15:02 IMPRESSION: No evidence of deep venous thrombosis involving the right upper extremity. Chest X-Ray 11/20/23 16:22 IMPRESSION: 1. Clear lungs. 2. Cardiac silhouette is mildly enlarged unchanged from prior.
[2023-11-20 19:48] LABS: VBG Base Excess 2.7 mmol/L; VBG HCO3 27 mmol/L (22-26); VBG pCO2 42 mmHg; VBG pH 7.41 (7.32-7.43); VBG pO2 41 mmHg
[2023-11-20 19:50] LABS: Venous Blood Gas Refer to POC result
[2023-11-20 19:55] LABS: Thyroid Stimulating Hormone 1.97 uIU/mL (0.32-4.0)
[2023-11-20 19:56] LABS: Reflex Lactate? 2 Y
[2023-11-20] MEDS: iohexoL 350 MG/ML 100 ML INFUS..BTL 85 ML IV (20:37)
[2023-11-20] MEDS: Piperacillin Sodium/Tazobactam 4.5 GM in 0.9 % Sodium Chloride 100 ML IV (20:44)
[2023-11-20] MEDS: 0.9 % Sodium Chloride 1,000 ML 999 ML IV (20:44)
--- NOTE | 2023-11-20 21:23 | MHC.EDTECH ---
placed a [place] catheter on patient.
[2023-11-20 21:44] VITALS: BP 171/90; PULSE 87; RESP 22; O2SAT 96
[2023-11-20] MEDS: vancomycin/NS 2,000 MG/500 ML PLAST..BAG 250 MG IV (21:54)
--- NOTE | 2023-11-20 23:09 | P.HPHOSP_ITS ---
History of Present Illness Date of Service: 11/20/23 Attending physician on admission: Jr Najera Chief Complaint: I feel weak Thad Brandt is a 78 years old man with past medical history significant for ischemic cardiomyopathy s/p AICD, essential hypertension and hyperlipidemia was brought to the emergency department after PD performed wellness check per neighbor request. Unfortunately patient is a very vague historian. He does not know his past medical history and does not recall the names of his home medications. He just told me that he feels weak and has right forearm/hand pain. He was unable to tell me for how long he has been having right hand pain. Patient was also noted to be quite swollen but he does not know for how long. Patient mentioned that he has not heroin. Denies IV drug use. In the ED, he was found to have stable vital signs. Last BP is 171/90. Blood workup showed no leukocytosis. Hemoglobin and platelets are normal. There is leukocytosis 4.0 x 2. INR is 1.9. Venous blood gas showed no CO2 retention. TSH is normal. GFR is above 60. Bilirubin is 3.0 and alk-phos is 120. Transaminases are normal. BNP is markedly elevated at 2912. UA showed no proteinuria. Albumin is no, 3.2. Right upper extremity venous you have showed no evidence of DVT. CXR showed clear lungs and cardiac silhouette is mildly enlarged. Head CT scan is negative. Right forearm CT scan with contrast showed extensive diffuse circumferential soft tissue edema involving the entirety of the visualized side arm. There are no focal tissue or intramuscular fluid collection to suggest abscess. Short segment of the ulnar and radial artery with diminutive opacification, possible artifact; otherwise elbow arteries are patent to the hand (clinical correlation for compartment syndrome will be helpful). ED tx: Furosemide 60 mg IV, NS 1 L bolus, vancomycin 2 g IV, Zosyn 4.5 mg IV Review of Systems 2 Review of Systems: Yes Unobtainable due to mental status [facility] Medical History Ischemic cardiomyopathy Social History Household Members: None Housing: Apartment Do you presently have visiting nurse or other home services: No Patient Tobacco Use Status: Never used Tobacco Smoked in Last 30 Days: No Patient Interested in Nicotine Replacement: No Patient Given Instructions on How to Stop Smoking: No Second Hand Smoke Exposure: No Use of substances other than those prescribed or required for medical reasons: Yes Substance Use Type: Heroin Substance Use Frequency: Daily Currently Displaying Signs/Symptoms of Drug Intoxication Withdrawal: No Have you been hit, kicked, punched, or otherwise hurt by someone within the past year? If so, by whom?: No Do you feel safe in your current relationship?: No Current Relationship Is there a partner from a previous relationship who is making you feel unsafe now?: No Are you made to feel afraid or neglected: No Advance Directives: No Advance Directives Information Provided: Yes Do you have a plan to hurt others: No Plan Recently lost weight without trying: Unsure Eating poorly because of decreased appetite: No Nutrition Risks: No Nutritional Risk Poor oral hygiene: Yes service: No Meds Allergies Allergy/AdvReac Type Severity Reaction Status Date / Time Penicillins [PENICILLINS] Allergy Intermediate HIVES Verified 11/20/23 12:49 Active Medications: Current Medications Atorvastatin Calcium (Atorvastatin Calcium 40 Mg Tablet) 40 mg PO BEDTIME [facility] Last Admin: 11/20/23 20:45 Dose: Not Given Carvedilol (Carvedilol 25 Mg Tablet) 25 mg PO BIDWM [facility]; Protocol Last Admin: 11/20/23 20:45 Dose: Not Given Ergocalciferol (Ergocalciferol (Vitamin D2) 1,250 Mcg Capsule) 1,250 mcg PO PATTERSON@0900 [facility] Heparin Sodium (Porcine) (Heparin Sodium,Porcine 5,000 Unit/Ml Vial) 5,000 unit SUBCUT Q8H [facility] Albumin Human (Kedbumin 25 %) 100 mls @ 100 mls/hr IV Q6H [facility] Stop: 11/21/23 17:59 Furosemide 200 mg/ Sodium (Chloride) 100 mls @ 2.5 mls/hr IVCONT .Q24H [facility] Lisinopril (Lisinopril 40 Mg Tablet) 40 mg PO BEDTIME [facility]; Protocol Last Admin: 11/20/23 20:45 Dose: Not Given Sodium Chloride (0.9 % Sodium Chloride Flush 3 Ml Syringe) 3 ml IVFLUSH QSHIFT [facility] Home Medications ?Medication ?Instructions ?Recorded ?Confirmed ?Last Taken ?Type atorvastatin 40 mg tablet 40 mg PO BEDTIME 11/20/23 11/20/23 Unknown History carvedilol 25 mg tablet 25 mg PO BIDWM 11/20/23 11/20/23 Unknown History ergocalciferol (vitamin D2) 1,250 1,250 mcg PO PATTERSON@0900 11/20/23 11/20/23 Unknown History mcg (50,000 unit) capsule lisinopril 40 mg tablet 40 mg PO BEDTIME 11/20/23 11/20/23 Unknown History Physical Exam 2 Vital Signs and Narrative: Vital Signs: Last Vital Signs Temp 97.8 F 11/20/23 12:48 Pulse 87 11/20/23 21:44 Resp 22 H 11/20/23 21:44 BP 171/90 H 11/20/23 21:44 Pulse Ox 96 11/20/23 21:44 O2 Del Method Room Air 11/20/23 21:44 BMI result Body Mass Index 35.3 Constitutional - Lethargic but awakes upon calling his name. Chronically ill- appearing. HEENT - PERRL. Yellowish sclerae. Dry oral mucosa Heart - RRR. Distant sounds. Lungs - Normal lung expansion, Normal respiratory effort, No respiratory distress. Mild tachypnea. Decreased breath sounds at bases. Abdomen - NT / ND; +BS; No rebound or guarding Extremities - Marked pitting edema to all extremities (upper > lower), distal pulses palpable. Right upper extremity: increased warmth, very tender to palpation. Skin - Warm/Dry. No jaundice Neurological - Lethargic but awakes open calling his name. Answer simple questions. Follows simple commands. Oriented only to person. No facial droop. PERRL. No focal weakness grossly noted. Normal speech. Psychological - No agitation. Results Labs 11/20/23 13:47 11/20/23 13:47 Labs: Laboratory Results - last 24 hr 11/20/23 11/20/23 11/20/23 13:47 17:23 19:42 MCV 90.6 MCH 28.6 MCHC 31.6 RDW 20.5 H Plt Count 132 L MPV 11.7 Immature Gran % (Auto) 0.3 Neut % (Auto) 82.5 H Lymph % (Auto) 8.4 L [place] % (Auto) 7.6 Eos % (Auto) 0.8 Baso % (Auto) 0.4 Lymph # (Auto) 0.9 L [place] # (Auto) 0.8 Eos # (Auto) 0.1 Baso # (Auto) 0.0 Abs Immat Gran (auto) 0.03 Absolute Neuts (auto) 8.3 Absolute Nucleated RBC 0.000 Nucleated RBC % (auto) 0.0 PT 23.5 H INR 1.9 H VBG pH 7.41 VBG pCO2 42 VBG pO2 41 VBG HCO3 27 H VBG O2 Saturation 63.0 VBG Base Excess 2.7 Anion Gap 17 Estim Creat Clear Calc 80.1 Estimated GFR > 60 Random Glucose 64 Lactic Acid 4.0 H* Lactic Acid F/U @ 2Hr 4.0 H* Calcium 8.7 Magnesium 2.3 Total Bilirubin 3.0 H AST 19 ALT 12 Alkaline Phosphatase 120 H Ammonia 53 Total Creatine Kinase 55 Troponin I High Sens 10.3 B-Natriuretic Peptide 2913 H Total Protein 7.1 Albumin 3.2 L Lipase 9 TSH 1.97 Urine Color Yellow Urine Appearance Clear Urine pH 6.5 Ur Specific [place] 1.010 Urine Protein Negative Urine Glucose (UA) Negative Urine Ketones Negative Urine Blood Negative Urine Nitrite Negative Ur Leukocyte Esterase Trace H Urine RBC 0-2 Urine WBC 0-5 Ur Squamous Epith Cells 0-2 Urine Bacteria Trace Hyaline Casts 0-2 Salicylates < 5.0 L Urine Opiates Screen POSITIVE H Ur Buprenorphine Scrn Not Detected Ur Oxycodone Screen Not Detected Urine Methadone Screen Not Detected Urine Fentanyl Screen POSITIVE H Acetaminophen < 3 Ur Barbiturates Screen Not Detected Ur Phencyclidine Scrn Not Detected Ur Amphetamines Screen Not Detected U Benzodiazepines Scrn Not Detected Urine Cocaine Screen POSITIVE H U Marijuana (THC) Screen Not Detected COVID-19 (DANIELLA) Negative COVID-19 Clin Com See Note Imaging Radiologist's Impressions: Impressions Venous Duplex 11/20/23 15:02 IMPRESSION: No evidence of deep venous thrombosis involving the right upper extremity. Chest X-Ray 11/20/23 16:22 IMPRESSION: 1. Clear lungs. 2. Cardiac silhouette is mildly enlarged unchanged from prior. Head CT 11/20/23 20:35 IMPRESSION: 1. No acute intracranial pathology. 2. Chronic small vessel ischemic disease and volume loss. Forearm CT 11/20/23 20:37 IMPRESSION: 1. Extensive diffuse circumferential soft tissue edema involving the entirety of the visualized arm. No focal soft tissue or intramuscular fluid collection to suggest abscess. 2. Short segments of the ulnar and radial artery with diminutive opacification, though this could represent artifact. Otherwise, the below elbow arteries are patent to the hand. Clinical correlation for compartment syndrome would be helpful. Assessment and Plan (1) Anasarca: Status: Acute (2) Ischemic cardiomyopathy: Status: Acute (3) Cellulitis of right forearm: Status: Acute Plan Thad Brandt is a 78 y/o man with PMHx significant for ischemic cardiomyopathy s/p AICD admitted with: * Anasarca. Likely secondary to ischemic cardiomyopathy. No proteinuria. Low albumin Admit to hospitalist service. Telemetry. Pulse oximetry. Start treatment with Lasix IV infusion and albumin. Will obtain chest, abdomen pelvis CT scans with IV contrast (in 24 hr as he recently received IV contrast). Cardiology consult. * Right forearm and arm cellulitis. Right upper extremity venous ultrasound and CT scan are unremarkable except for edema. Doubt compartment syndrome. Empiric IV antibiotic therapy with vancomycin and ceftriaxone. * Lactic acidosis, 4.0. No sepsis/SIRS criteria. Normal pH and bicarb. * Acute encephalopathy. Suspecting this is secondary to drug use (urine toxicology is positive for fentanyl, opiates and cocaine). Aspiration precautions. Keep NPO for now. Ammonia and TSH normal. Head CT scan negative. No respiratory acidosis. Check vitamin B12 level. Will avoid sedative * Elevated bilirubin. * Hyperlipidemia. Continue statin when able. * Essential hypertension. Continue lisinopril when able. Code status: Full DVT prophylaxis: Heparin subcut Patient will need hospitalization for at least 2 midnights for anasarca treatment with IV Lasix drip and albumin. Patient will also need evaluation by subspecialty. Quality Stroke Does the patient have a stroke diagnosis?: No VTE Prior VTE?: No VTE Risk Level:: Medical - moderate - high VTE Device Contraindication: Treatment Not Indicated VTE Drug Contraindication: N/A - Med Ordered
[2023-11-20 23:42] LABS: Cancel Lactic Acid Canceled
[2023-11-21] VITALS (7 sets, daily range): BP systolic 129–177; BP diastolic 80–112; PULSE 80–104; RESP 18–20; TEMP 36.1–36.8; O2SAT 93–97; BMI 35.3
[2023-11-21] MEDS: Albumin Human 25 % 100 ML IV ×4 (00:34→16:27)
[2023-11-21] MEDS: Furosemide 200 MG in 0.9 % Sodium Chloride 80 ML IVCONT (01:42)
[2023-11-21] MEDS: cefTRIAXone sodium 1 GM in 0.9 % Sodium Chloride 50 ML IV (05:34)
--- NOTE | 2023-11-21 08:31 | PC.NURSE ---
Assumed care at 0700. Lasix running at 2.5 ml/hr. pt reported 7/10 L arm pain. last vitals 172/81, HR 91, 18, 97% R/A. NS on monitor.
--- NOTE | 2023-11-21 09:20 | P.PNIM_ITS ---
Subjective Subjective Date of Service: 11/21/23 Interval History: seen in f/u for decompensated cardiomyopathy, anasarca pt remains swollen everywhere but not complaning of shortness of breath Physical Exam 2 Vital Signs: Vital Signs: Last Vital Signs Temp 98.3 F 11/21/23 07:42 Pulse 96 11/21/23 07:34 Resp 18 11/21/23 07:34 BP 172/81 H 11/21/23 07:34 Pulse Ox 97 11/21/23 07:34 O2 Del Method Room Air 11/21/23 07:34 BMI result Body Mass Index 35.3 General: AO X 3, no acute distress Resp: rales at bases CVS: S1,S2,RRR GI: +BS, NT, no distention Skin: diffuse anasarca, bilateral chronic venous stasis changes of both legs Neuro: motor grossly intact Psych: appropriate affect Objective Data Active Medications Atorvastatin Calcium (Atorvastatin Calcium 40 Mg Tablet) 40 mg PO BEDTIME [facility] Last Admin: 11/20/23 20:45 Dose: Not Given Documented By: COREY Non-Admin Reason: Patient Condition Contraindication Carvedilol (Carvedilol 25 Mg Tablet) 25 mg PO BIDWM [facility]; Protocol Last Admin: 11/20/23 20:45 Dose: Not Given Documented By: COREY Non-Admin Reason: Patient Condition Contraindication Ergocalciferol (Ergocalciferol (Vitamin D2) 1,250 Mcg Capsule) 1,250 mcg PO PATTERSON@0900 [facility] Heparin Sodium (Porcine) (Heparin Sodium,Porcine 5,000 Unit/Ml Vial) 5,000 unit SUBCUT Q8H [facility] Albumin Human (Kedbumin 25 %) 100 mls @ 100 mls/hr IV Q6H [facility] Stop: 11/21/23 17:59 Last Infusion: 11/21/23 08:39 Dose: Infused Documented By: MICHELE Furosemide 200 mg/ Sodium (Chloride) 100 mls @ 2.5 mls/hr IVCONT .Q24H [facility] Last Admin: 11/21/23 01:42 Dose: 5 mg/hr, 2.5 mls/hr Documented By: COREY Ceftriaxone Sodium 1 gm/ (Sodium Chloride) 50 mls @ 100 mls/hr IV Q24H [facility] Last Infusion: 05/19/24 06:04 Dose: Infused Documented By: COREY Lisinopril (Lisinopril 40 Mg Tablet) 40 mg PO BEDTIME [facility]; Protocol Last Admin: 11/20/23 20:45 Dose: Not Given Documented By: COREY Non-Admin Reason: Patient Condition Contraindication Sodium Chloride (0.9 % Sodium Chloride Flush 3 Ml Syringe) 3 ml IVFLUSH QSHIFT [facility] Last Admin: 11/21/23 08:39 Dose: Not Given Documented By: MICHELE Non-Admin Reason: IV Running Labs 11/20/23 13:47 11/20/23 13:47 Labs: Laboratory Results - last 24 hr 11/20/23 11/20/23 11/20/23 13:47 17:23 19:42 MCV 90.6 MCH 28.6 MCHC 31.6 RDW 20.5 H Plt Count 132 L MPV 11.7 Immature Gran % (Auto) 0.3 Neut % (Auto) 82.5 H Lymph % (Auto) 8.4 L [place] % (Auto) 7.6 Eos % (Auto) 0.8 Baso % (Auto) 0.4 Lymph # (Auto) 0.9 L [place] # (Auto) 0.8 Eos # (Auto) 0.1 Baso # (Auto) 0.0 Abs Immat Gran (auto) 0.03 Absolute Neuts (auto) 8.3 Absolute Nucleated RBC 0.000 Nucleated RBC % (auto) 0.0 PT 23.5 H INR 1.9 H VBG pH 7.41 VBG pCO2 42 VBG pO2 41 VBG HCO3 27 H VBG O2 Saturation 63.0 VBG Base Excess 2.7 Anion Gap 17 Estim Creat Clear Calc 80.1 Estimated GFR > 60 Random Glucose 64 Lactic Acid 4.0 H* Lactic Acid F/U @ 2Hr 4.0 H* Calcium 8.7 Magnesium 2.3 Total Bilirubin 3.0 H AST 19 ALT 12 Alkaline Phosphatase 120 H Ammonia 53 Total Creatine Kinase 55 Troponin I High Sens 10.3 B-Natriuretic Peptide 2913 H Total Protein 7.1 Albumin 3.2 L Lipase 9 TSH 1.97 Urine Color Yellow Urine Appearance Clear Urine pH 6.5 Ur Specific [place] 1.010 Urine Protein Negative Urine Glucose (UA) Negative Urine Ketones Negative Urine Blood Negative Urine Nitrite Negative Ur Leukocyte Esterase Trace H Urine RBC 0-2 Urine WBC 0-5 Ur Squamous Epith Cells 0-2 Urine Bacteria Trace Hyaline Casts 0-2 Salicylates < 5.0 L Urine Opiates Screen POSITIVE H Ur Buprenorphine Scrn Not Detected Ur Oxycodone Screen Not Detected Urine Methadone Screen Not Detected Urine Fentanyl Screen POSITIVE H Acetaminophen < 3 Ur Barbiturates Screen Not Detected Ur Phencyclidine Scrn Not Detected Ur Amphetamines Screen Not Detected U Benzodiazepines Scrn Not Detected Urine Cocaine Screen POSITIVE H U Marijuana (THC) Screen Not Detected COVID-19 (DANIELLA) Negative COVID-19 Clin Com See Note Assessment and Plan (1) Cellulitis of right forearm: Status: Acute (2) CHF (congestive heart failure): Status: Acute (3) Anasarca: Status: Acute (4) Ischemic cardiomyopathy: Status: Acute Plan 78 y/o man with PMHx significant for ischemic cardiomyopathy s/p AICD admitted with: Anasarca. Likely secondary to ischemic cardiomyopathy. No proteinuria. Low albumin Admit to hospitalist service. -Lasix IV drip -Monitor I/O, electrolytes -cardiology consult -get echo, no recent one Right forearm and arm cellulitis. Right upper extremity venous ultrasound and CT scan are unremarkable except for edema. Doubt compartment syndrome. Empiric IV antibiotic therapy with vancomycin and ceftriaxone. Lactic acidosis, 4.0. No sepsis/SIRS criteria. Normal pH and bicarb. Acute encephalopathy. Suspecting this is secondary to drug use (urine toxicology is positive for fentanyl, opiates and cocaine). Aspiration precautions. nursing swallow eval . Ammonia and TSH normal. Head CT scan negative. No respiratory acidosis. Check vitamin B12 level. Elevated bilirubin-follow Hyperlipidemia. Continue statin when able. Essential hypertension. Continue lisinopril when able. Substance usd disorder--addiction med consult Code status: Full DVT prophylaxis: Heparin subcut need for inpatient: management for anasarca treatment with IV Lasix drip and albumin. Patient will also need evaluation by subspecialty. Quality Stroke Does the patient have a stroke diagnosis?: No VTE Prior VTE?: No VTE Risk Level:: Medical - moderate - high VTE Device Contraindication: Treatment Not Indicated VTE Drug Contraindication: N/A - Med Ordered
[2023-11-21] MEDS: Heparin Sodium,Porcine 5,000 UNIT/ML VIAL 5000 UNIT SUBCUT ×2 (09:51→16:28)
[2023-11-21] MEDS: Doxycycline Hyclate 100 MG in 0.9 % Sodium Chloride 250 ML 166.67 MG IV ×2 (10:07→21:48)
--- NOTE | 2023-11-21 13:40 | MHC.CM.PN ---
Addendum entered by Desi Thompson 11/21/23 16:07: HCP completed with pt, now on file. Addendum entered by Desi Thompson 11/21/23 13:44: Pt states he would not like his daughter Pam contacted or given updates about his condition. Original Note: IMM 11/20. Pts CM intake assessment done with broomcorn press feeder present to translate. Pt self-care, states he lives at home alone, uses a cane. Pt states he will need assistance with transportation home at discharge. Educated on HCP, and offered to assist pt with filling one out, pt states he has a friend he will chose but does not have his information at this time. PCP: Dr. Verna Caraballo
[2023-11-21] MEDS: carvediloL 25 MG TABLET PO (21:47)
[2023-11-21] MEDS: 0.9 % Sodium Chloride Flush 3 ML SYRINGE IVFLUSH (21:50)
[2023-11-21 23:12] LABS: MANUAL DIFF FLAG NO
[2023-11-21 23:18] LABS: Basophils Percent Auto 0.2 % (0-2); Hematocrit 40.4 % (42.0-52.0); Hemoglobin 13.6 g/dl (14.0-18.0); Imm Gran Abs Auto 0.05 X10*3/uL (0.00-0.03); Imm Gran Pct Auto 0.4 % (0.0-0.4); Lymphocytes Absolute Auto 0.8 X10*3/uL (1.2-4.9); Lymphocytes Percent Auto 6.6 % (20-40); Mean Corpuscular HGB Conc 33.7 g/dl (31.0-36.0); Mean Corpuscular Hemoglobin 29.3 pg (27.0-33.0); Mean Corpuscular Volume 87.1 fL (80.0-98.0); Mean Platelet Volume 10.5 fL (9.4-12.4); Monocytes Absolute Auto 0.9 X10*3/uL (0.1-1.2); Monocytes Percent Auto 6.9 % (2-11); Neutrophils Absolute Auto 10.8 x10*3/uL (2.0-8.3); Neutrophils Percent Auto 85.9 % (45-73); Platelet Count 119 X10*3/uL (160-400); Red Blood Count 4.64 X10*6/uL (4.60-5.80); Red Cell Distribution Width 19.9 % (11.0-16.0); White Blood Count 12.5 X10*3/uL (4.8-10.8)
[2023-11-21 23:29] LABS: Alanine Aminotransferase 9 U/L (0-40); Albumin Level 2.8 g/dL (3.5-5.0); Alkaline Phosphatase 69 U/L (39-117); Anion Gap 14 (12-20); Aspartate Amino Transferase 16 U/L (5-37); Bilirubin Total 2.8 mg/dL (0.0-1.0); Blood Urea Nitrogen 19 mg/dL (9-16); Calcium 8.2 mg/dL (8.4-10.2); Carbon Dioxide 21 mmol/L (22-29); Chloride 108 mmol/L (96-108); Estimated Glomerular Filt Rate > 60; Glucose Random 109 mg/dL (60-115); Potassium 3.4 mmol/L (3.3-5.1); Sodium 141 mmol/L (135-145); Total Protein 5.4 g/dL (6.5-8.0)
[2023-11-22] VITALS (10 sets, daily range): BP systolic 157–193; BP diastolic 79–100; PULSE 76–103; RESP 18–19; TEMP 36.5–36.7; O2SAT 95–98
[2023-11-22 01:42] LABS: Vitamin B12 560 pg/mL (200-900)
[2023-11-22] MEDS: Furosemide 200 MG in 0.9 % Sodium Chloride 80 ML IVCONT (02:04)
[2023-11-22] MEDS: Heparin Sodium,Porcine 5,000 UNIT/ML VIAL 5000 UNIT SUBCUT ×3 (02:10→15:24)
--- NOTE | 2023-11-22 07:00 | CA_ITS ---
Transthoracic Echocardiogram Patient (Last, First, Middle): Thad Simpson, Gender: Male Date of : 1945 Age: 78 Procedure Date: 11/22/2023 Procedure Type: Transthoracic Echocardiogram Location: [facility] [place] Height: 187.96 cm Weight: 124.29 kg BSA: 2.48 m2 Heart Rate: bpm BP: 169 / 91 mmHg Brick Burner Head: YANIQUE Referring MD: Jr Najera MD Symptoms: Anasarca Study Quality: Adequate ECG Rhythm: Atrial Fibrillation Conclusions: - Normal left ventricular cavity size. There is severely increased left ventricular wall thickness. The left ventricular systolic function is moderate to severely decreased. The visually estimated ejection fraction is between 25-30%. - The apical anterior, apical inferior, and mid inferior segments are hypokinetic. - The apical lateral segment is akinetic. - The apex and apical septum segments are dyskinetic. - Mildly increased right ventricular cavity size. - Significantly elevated right atrial pressure. - There is no evidence of pulmonary hypertension. - There is moderate dilatation of the ascending aorta measuring 4.40 cm. Findings Procedure Information Contrast agent, definity, is being given per protocol without apparent complications. Left Ventricle Normal left ventricular cavity size. There is severely increased left ventricular wall thickness. The left ventricular systolic function is moderate to severely decreased. The visually estimated ejection fraction is between 25-30%. There is evidence of regional wall motion abnormalities. Diastolic function is indeterminate on the basis of available data. Wall Motion Rest Echo Findings The apical anterior, apical inferior, and mid inferior segments are hypokinetic. The apical lateral segment is akinetic. The apex and apical septum segments are dyskinetic. Right Ventricle Mildly increased right ventricular cavity size. There is normal right ventricular systolic function. There is a pacemaker wire seen in the right ventricle. Atria The left atrium is severely dilated. The right atrium is severely dilated. Aortic Valve There is a normal trileaflet aortic valve. There is mild calcification of the aortic valve. There is mild thickening of the aortic valve. There is no aortic valve stenosis. There is mild aortic valve regurgitation. Mitral Valve The mitral valve appears normal. There is mild mitral valve regurgitation. There is no mitral valve stenosis. Pulmonic Valve The pulmonic valve is likely normal. There is trace pulmonic valve regurgitation. Tricuspid Valve There is moderate tricuspid valve regurgitation. The right ventricular systolic pressure is 33 mmHg. Significantly elevated right atrial pressure. There is no evidence of pulmonary hypertension. Great Vessels There is moderate dilatation of the ascending aorta measuring 4.40 cm. The visualized portions of the pulmonary artery and branches are normal. Venous The inferior vena cava is severely dilated and collapses less than 50% with inspiration. Pericardium/Pleural There is no evidence of pericardial effusion. Prior Study Comparison No prior study available for comparison. Measurements 2D Linear Measurements IVSd: 1.54 0.6-0.9/0.6-1.0 cm LVIDd: 5.40 3.9-5.3/4.2-5.9 cm LVIDd Index: 2.18 2.4-3.2/2.2-3.1 cm/m2 LVIDs: 4.61 2.0-3.6 cm LVPWd: 1.63 0.7-1.1 cm Ao Root: 4.40 2.1-3.5 cm LA Diam: 5.60 2.7-3.8/3.0-4.0 cm LAIDs Index: 2.26 1.5-2.3 cm/m2 LV Mass: 490.84 67-162/88-224 g LV Mass Index: 197.92 43-95/49-115 g/m2 LVOT Diam: 2.50 3.0+(-)1.3 cm 2D Systolic Function EF 4C: 25.60 >55% EF 2C: 34.10 >55% EF BiP: 30.50 >55% Mitral Valve MV Pk E: 0.99 MV Decel Time: 154.00 E'Lateral: 11.80 E'Medial: 5.70 E/E' Med: 17.30 E/E' Lat: 8.30 PHT: 45.00 MVA PHT: 4.89 Decel Cross: 6.41 Aortic Valve AoV Pk Ollie: 1.18 AoV Mn Ollie: 0.91 AoV VTI: 0.21 AoV Pk Grad: 6.00 Aov Mn Grad: 4.00 SOURAV Cont.VTI: 4.36 AI Pk Ollie: 3.85 AI Cross: 1.45 LVOT LVOT Pk Ollie: 1.10 LVOT Mn Ollie: 0.75 LVOT VTI: 0.19 LVOT Pk Grad: 5.00 LVOT Mn Grad: 3.00 LVOT Diam: 2.50 LVOT Area: 4.91 Diastolic Function MV Pk E: 0.99 E'Medial: 5.70 E/E' Med: 17.30 E' Laterial: 11.80 E/E' Lat: 8.30 Right Ventricle TAPSE (mm): 20.00 TVS' Ollie: 14.00 Tricuspid Valve TR Pk Ollie: 2.14 TR Pk Grad: 18.00 RA Press: 15.00 RVSP: 33.00 Great Vessels Aorta Ao Root-2D: 4.40 2.0-3.7 cm Ao Asc: 4.40 2.1-3.4 cm Pulmonary Valve PV Pk Ollie: 0.95 Peak PV Grad: 4.00 Updated in Other Vendor System with Status of Final Fracisco Valdivia MD electronically signed on 11/22/2023 2:31:17 PM with status of Final
[2023-11-22] MEDS: cefTRIAXone sodium 1 GM in 0.9 % Sodium Chloride 50 ML IV (07:25)
--- NOTE | 2023-11-22 09:24 | MHC.RECOVRN ---
Met with pt in 475 after consult placed to Addiction Medicine for substance use. Pt had presented to the ED from home after neighbor called for wellness check. Pt had not been taking care of himself, was unsure of medical dx and medications. Pt had bilateral JVD, entire body pitting edema. Also reported heroin use. Upon evaluation, pt admitted for anasarca, ischemic cardiomyopathy, and cellulitis of right forearm. Pt sitting in bed, awake, alert, easily engages in conversation, appears comfortable. Pt reports heroin/fentanyl use, 6-10 bags daily, [place], x 2 years. Pt reports last use was prior to arrival, had used a total of 10 bags that day. Pt currently denies withdrawal symptoms. Pt reports he had felt them but they have since passed. Pt reports methadone in the past a long time ago. Pt reports he tried Suboxone once and after talking about it with pt, pt had experienced precipitated withdrawal. Pt would like to be on MOUD, however, would have difficulty with methadone due to inability to get to [facility]. Pt is open to Suboxone, however, is concerned about precipitated withdrawal. Pt reports he began using opioids at age 63 and had been in treatment in [place] years ago. Denies hx of overdose. Discussed possibility of initiating Suboxone while at [facility], pt is interested. Pt denies questions or concerns for t/w. Discussed with Kaye Stevens APRN.
[2023-11-22] MEDS: Doxycycline Hyclate 100 MG in 0.9 % Sodium Chloride 250 ML 166.67 MG IV ×2 (09:33→21:55)
[2023-11-22] MEDS: 0.9 % Sodium Chloride Flush 3 ML SYRINGE IVFLUSH ×3 (09:34→21:56)
--- NOTE | 2023-11-22 10:37 | P.PNIM_ITS ---
Subjective Subjective Date of Service: 11/22/23 Interval History: seen in f/u for decompensated cardiomyopathy, anasarca There is still swelling in the arms and but wrinkles in the legs, he is not sob he admits to using drugs and denies withdrawal symptoms Physical Exam 2 Vital Signs: Vital Signs: Last Vital Signs Temp 97.7 F 11/22/23 07:55 Pulse 80 11/22/23 07:55 Resp 18 11/22/23 07:55 BP 157/80 H 11/22/23 07:55 Pulse Ox 95 11/22/23 07:55 O2 Del Method Room Air 11/22/23 07:55 BMI result Body Mass Index 35.3 General: AO X 3, no acute distress Resp: lungs clear, no dixtress CVS: S1,S2,RRR GI: +BS, NT, no distention Skin: diffuse swelling in the arm, but no edema in the legs Neuro: motor grossly intact Psych: appropriate affect Objective Data Active Medications Atorvastatin Calcium (Atorvastatin Calcium 40 Mg Tablet) 40 mg PO BEDTIME [facility] Last Admin: 11/20/23 20:45 Dose: Not Given Documented By: COREY Non-Admin Reason: Patient Condition Contraindication Carvedilol (Carvedilol 25 Mg Tablet) 25 mg PO BIDWM [facility]; Protocol Last Admin: 11/20/23 20:45 Dose: Not Given Documented By: COREY Non-Admin Reason: Patient Condition Contraindication Ergocalciferol (Ergocalciferol (Vitamin D2) 1,250 Mcg Capsule) 1,250 mcg PO PATTERSON@0900 [facility] Last Admin: 11/21/23 09:51 Dose: Not Given Documented By: KEYSHA Non-Admin Reason: NPO Heparin Sodium (Porcine) (Heparin Sodium,Porcine 5,000 Unit/Ml Vial) 5,000 unit SUBCUT Q8H [facility] Last Admin: 11/22/23 09:33 Dose: 5,000 unit Documented By: TAO Furosemide 200 mg/ Sodium (Chloride) 100 mls @ 2.5 mls/hr IVCONT .Q24H [facility] Last Admin: 11/22/23 02:04 Dose: 5 mg/hr, 2.5 mls/hr Documented By: CELINA Ceftriaxone Sodium 1 gm/ (Sodium Chloride) 50 mls @ 100 mls/hr IV Q24H [facility] Last Infusion: 11/22/23 07:55 Dose: Infused Documented By: TAO Doxycycline Hyclate 100 mg/ (Sodium Chloride) 250 mls @ 166.67 mls/hr IV Q12H [facility] Last Admin: 11/22/23 09:33 Dose: 166.67 mls/hr Documented By: TAO Lisinopril (Lisinopril 40 Mg Tablet) 40 mg PO BEDTIME [facility]; Protocol Last Admin: 11/20/23 20:45 Dose: Not Given Documented By: COREY Non-Admin Reason: Patient Condition Contraindication Sodium Chloride (0.9 % Sodium Chloride Flush 3 Ml Syringe) 3 ml IVFLUSH QSHIFT [facility] Last Admin: 11/22/23 09:34 Dose: 3 ml Documented By: TAO Labs 11/21/23 22:55 11/21/23 22:55 Labs: Laboratory Results - last 24 hr 11/21/23 11/21/23 15:32 22:55 MCV 87.1 MCH 29.3 MCHC 33.7 RDW 19.9 H Plt Count 119 L MPV 10.5 Immature Gran % (Auto) 0.4 Neut % (Auto) 85.9 H Lymph % (Auto) 6.6 L [place] % (Auto) 6.9 Eos % (Auto) 0.0 Baso % (Auto) 0.2 Lymph # (Auto) 0.8 L [place] # (Auto) 0.9 Eos # (Auto) 0.0 Baso # (Auto) 0.0 Abs Immat Gran (auto) 0.05 H Absolute Neuts (auto) 10.8 H Absolute Nucleated RBC 0.000 Nucleated RBC % (auto) 0.0 Anion Gap Cancelled 14 Estim Creat Clear Calc Cancelled 99.0 Estimated GFR Cancelled > 60 Random Glucose Cancelled 109 Calcium Cancelled 8.2 L Total Bilirubin 2.8 H AST 16 ALT 9 Alkaline Phosphatase 69 Total Creatine Kinase Cancelled 18 L Total Protein 5.4 L Albumin 2.8 L Vitamin B12 560 Microbiology Microbiology Results: Microbiology 11/20/23 14:40 Blood Culture - Preliminary Blood - Venous No growth after 24 hours. 11/20/23 13:47 Blood Culture - Preliminary Blood - Venous No growth after 24 hours. Assessment and Plan (1) Cellulitis of right forearm: Status: Acute (2) CHF (congestive heart failure): Status: Acute (3) Anasarca: Status: Acute (4) Ischemic cardiomyopathy: Status: Acute Plan 78 y/o man with PMHx significant for ischemic cardiomyopathy s/p AICD admitted with: Anasarca. Likely secondary to ischemic cardiomyopathy. No proteinuria. Low albumin Admit to hospitalist service. -Lasix IV drip -Monitor I/O, electrolytes -cardiology consult -get echo, no recent one Right forearm and arm cellulitis. Right upper extremity venous ultrasound and CT scan are unremarkable except for edema. Doubt compartment syndrome. Empiric IV antibiotic therapy with Doxy and ceftriaxone. DC doxy Lactic acidosis, 4.0. No sepsis/SIRS criteria. Normal pH and bicarb. Acute encephalopathy. Suspecting this is secondary to drug use (urine toxicology is positive for fentanyl, opiates and cocaine). resolved Elevated bilirubin--likely from passive liver congestion from fluid overload, trending down Hyperlipidemia. Continue statin when able. Essential hypertension. Continue lisinopril Substance usd disorder--addiction med consult, no withdrawal dymptoms Code status: Full DVT prophylaxis: Heparin subcut need for inpatient: management for anasarca treatment with IV Lasix drip and albumin. Patient will also need evaluation by subspecialty. Quality Stroke Does the patient have a stroke diagnosis?: No VTE Prior VTE?: No VTE Risk Level:: Medical - moderate - high VTE Device Contraindication: Treatment Not Indicated VTE Drug Contraindication: N/A - Med Ordered
[2023-11-22 11:51] LABS: Anion Gap 14 (12-20); Blood Urea Nitrogen 19 mg/dL (9-16); Calcium 8.4 mg/dL (8.4-10.2); Carbon Dioxide 26 mmol/L (22-29); Chloride 105 mmol/L (96-108); Creatinine Clr Calc Pharmacy 103.6; Estimated Glomerular Filt Rate > 60; Glucose Random 128 mg/dL (60-115); Sodium 142 mmol/L (135-145)
--- NOTE | 2023-11-22 12:07 | P.CONCA_ITS ---
History of Present Illness History of Present Illness Date of Service: 11/22/23 Requesting physician: Lopez Gibson Chief complaint: Anasarca, acute encephalopathy Narrative: [age] year gentleman presenting for anasarca. He has background history of cardiomyopathy. He is positive for fentanyl, opiates and cocaine in his urine. He has bilateral upper extremity swelling and he is short of breath. He has significant tenderness over the arms and he is currently getting antibiotics for potential cellulitis. He is saying he has never injected himself and was snorting heroin. Blood pressure is elevated. Clinically appears to be overloaded by exam. [facility] Past Medical History Medical History Ischemic cardiomyopathy Social History Social History Household Members: None Housing: Apartment Do you presently have visiting nurse or other home services: No Patient Tobacco Use Status: Never used Tobacco Smoked in Last 30 Days: No Patient Interested in Nicotine Replacement: No Patient Given Instructions on How to Stop Smoking: No Second Hand Smoke Exposure: No Use of substances other than those prescribed or required for medical reasons: Yes Substance Use Type: Heroin Substance Use Frequency: Daily Currently Displaying Signs/Symptoms of Drug Intoxication Withdrawal: No Have you been hit, kicked, punched, or otherwise hurt by someone within the past year? If so, by whom?: No Do you feel safe in your current relationship?: No Current Relationship Is there a partner from a previous relationship who is making you feel unsafe now?: No Are you made to feel afraid or neglected: No Advance Directives: No Advance Directives Information Provided: Yes Do you have a plan to hurt others: No Plan Recently lost weight without trying: Unsure Eating poorly because of decreased appetite: No Nutrition Risks: No Nutritional Risk Poor oral hygiene: Yes service: No Meds Allergies Allergy/AdvReac Type Severity Reaction Status Date / Time Penicillins [PENICILLINS] Allergy Intermediate HIVES Verified 11/20/23 12:49 Active Medications: Current Medications Atorvastatin Calcium (Atorvastatin Calcium 40 Mg Tablet) 40 mg PO BEDTIME [facility] Last Admin: 11/20/23 20:45 Dose: Not Given Carvedilol (Carvedilol 25 Mg Tablet) 25 mg PO BIDWM [facility]; Protocol Last Admin: 11/20/23 20:45 Dose: Not Given Ergocalciferol (Ergocalciferol (Vitamin D2) 1,250 Mcg Capsule) 1,250 mcg PO PATTERSON@0900 [facility] Last Admin: 11/21/23 09:51 Dose: Not Given Heparin Sodium (Porcine) (Heparin Sodium,Porcine 5,000 Unit/Ml Vial) 5,000 unit SUBCUT Q8H [facility] Last Admin: 11/22/23 09:33 Dose: 5,000 unit Furosemide 200 mg/ Sodium (Chloride) 100 mls @ 2.5 mls/hr IVCONT .Q24H [facility] Last Admin: 11/22/23 02:04 Dose: 5 mg/hr, 2.5 mls/hr Ceftriaxone Sodium 1 gm/ (Sodium Chloride) 50 mls @ 100 mls/hr IV Q24H [facility] Last Infusion: 11/22/23 07:55 Dose: Infused Doxycycline Hyclate 100 mg/ (Sodium Chloride) 250 mls @ 166.67 mls/hr IV Q12H [facility] Last Infusion: 11/22/23 11:03 Dose: Infused Lisinopril (Lisinopril 40 Mg Tablet) 40 mg PO BEDTIME [facility]; Protocol Last Admin: 11/20/23 20:45 Dose: Not Given Sodium Chloride (0.9 % Sodium Chloride Flush 3 Ml Syringe) 3 ml IVFLUSH QSHIFT [facility] Last Admin: 11/22/23 09:34 Dose: 3 ml Home Medications ?Medication ?Instructions ?Recorded ?Confirmed ?Last Taken ?Type atorvastatin 40 mg tablet 40 mg PO BEDTIME 11/20/23 11/20/23 Unknown History carvedilol 25 mg tablet 25 mg PO BIDWM 11/20/23 11/20/23 Unknown History ergocalciferol (vitamin D2) 1,250 1,250 mcg PO PATTERSON@0900 11/20/23 11/20/23 Unknown History mcg (50,000 unit) capsule lisinopril 40 mg tablet 40 mg PO BEDTIME 11/20/23 11/20/23 Unknown History Physical Exam 2 Vital Signs: Vital Signs: Last Vital Signs Temp 97.7 F 11/22/23 07:55 Pulse 81 11/22/23 12:00 Resp 18 11/22/23 07:55 BP 171/83 H 11/22/23 12:00 Pulse Ox 96 11/22/23 12:00 O2 Del Method Room Air 11/22/23 12:00 BMI result Body Mass Index 35.3 GENERAL APPEARANCE: Distressed due to arm pain. NECK: no carotid bruit, + jugular venous distention. SKIN: no suspicious lesions, warm and dry. HEART: no murmurs, regular rate and rhythm. LUNGS: clear to auscultation bilaterally. ABDOMEN: soft, nontender. EXTREMITIES: Bilateral upper extremity pitting edema. No significant lower extremity edema. PERIPHERAL PULSES: equal. NEUROLOGIC: No gross deficits, AAO X 3 Objective Labs and Meds 11/21/23 22:55 11/22/23 11:32 Lab results: Laboratory Results - last 24 hr 11/21/23 11/21/23 11/22/23 15:32 22:55 11:32 WBC 12.5 H RBC 4.64 Hgb 13.6 L Hct 40.4 L D MCV 87.1 MCH 29.3 MCHC 33.7 RDW 19.9 H Plt Count 119 L MPV 10.5 Immature Gran % (Auto) 0.4 Neut % (Auto) 85.9 H Lymph % (Auto) 6.6 L [place] % (Auto) 6.9 Eos % (Auto) 0.0 Baso % (Auto) 0.2 Lymph # (Auto) 0.8 L [place] # (Auto) 0.9 Eos # (Auto) 0.0 Baso # (Auto) 0.0 Abs Immat Gran (auto) 0.05 H Absolute Neuts (auto) 10.8 H Absolute Nucleated RBC 0.000 Nucleated RBC % (auto) 0.0 Sodium Cancelled 141 142 Potassium Cancelled 3.4 3.0 L Chloride Cancelled 108 105 Carbon Dioxide Cancelled 21 L 26 Anion Gap Cancelled 14 14 BUN Cancelled 19 H 19 H Creatinine Cancelled 0.89 0.85 Estim Creat Clear Calc Cancelled 99.0 103.6 Estimated GFR Cancelled > 60 > 60 Random Glucose Cancelled 109 128 H Calcium Cancelled 8.2 L 8.4 Total Bilirubin 2.8 H AST 16 ALT 9 Alkaline Phosphatase 69 Total Creatine Kinase Cancelled 18 L Total Protein 5.4 L Albumin 2.8 L Vitamin B12 560 Assessment and Plan (1) Ischemic cardiomyopathy: Status: Acute (2) Anasarca: Status: Acute Plan 78 year gentleman presenting with shortness of breath and upper extremities edema on background of polysubstance abuse. Blood pressure is elevated. Advised adding hydralazine 25 mg 3 times a day along with isosorbide mononitrate 30 mg daily. Upper extremity edema is difficult to explain based on congestive heart failure and it is quite unusual to get upper extremity edema. He is on antibiotics and we will see how he responds to diuretics and antibiotics. We will follow along with you. Thank you for allowing me to participate in the care of your patient. Please feel free to contact me if you have any questions. Procedures Date of Service Date of Service: 11/22/23
--- NOTE | 2023-11-22 12:16 | PM.EVENT ---
Event Note Date of Service: 11/22/23 Event Note: Addiction note Patient medically admitted with cardiomyopathy and anasarca At time of admission reported heroin/fentanyl use, with last use prior to admission chart review shows COW score of 1 overnight seen by life cycle assessment analyst this morning --patient denied withdrawal sx and verbalized preference for suboxone additional substance use history obtained -see RN note for details Attempted to meet with patient--he was awake and alert, but crying and unwilling to engage in discussion Asked if he was in pain, he said no. Asked if he was in withdrawal he said no. Allowed patient space to cry. Will return later this afternoon Time Spent With Patient Time: Total time managing care of this patient today ____ minutes.
[2023-11-22] MEDS: Isosorbide Mononitrate 30 MG TAB.ER.24H PO (12:36)
--- NOTE | 2023-11-22 13:13 | MHC.CM.PN ---
Pt is not ready for DC, he requires treatment with IV lasix drip and albumin. DC plan is home, self care. CM will follow and assist as needed with DC planning.
[2023-11-22] MEDS: hydrALAZINE HCl 25 MG TABLET PO ×2 (15:23→21:55)
[2023-11-22] MEDS: Potassium Chloride ER 20 MEQ TAB.ER.PRT 40 MEQ PO (15:24)
--- NOTE | 2023-11-22 15:42 | HO.ADDICTCON ---
History of Present Illness Date of Service: 11/22/2023 Chief Complaint: Anasarca, acute encephalopathy Reason for Consult: opiate use Sources of Information: patient interviewed and chart reviewed HPI Narrative: Patient is a 78 year old male currently medically admitted with cardiomyopathy and anarsarca. Seen in room 475, with friend present--per patient request. Awake, alert, pleasant and engaged in interview. He reports using up to 10 bags of heroin/fentanyl daily for a long time Denies ATS admissions Previously taking methadone while living in [place] -10-15 years ago Briefly prescribed suboxone, however he states that he did not like it and will never take that again He denies withdrawal sx -when questioned further he reports GI upset. Denies body aches, loose stools, or anxiety. He does not appear diaphoretic, restless, no yawning or rhinorrhea noted Medical Evaluation Reviewed: Yes Review of Systems Constitutional: Reports as per HPI Diagnostics Vital Signs (24Hr): Vital Signs - 24 hr 11/21/23 16:00 11/21/23 19:27 11/21/23 23:37 Temperature 96.9 F 97.6 F 97.9 F Pulse Rate 80 80 92 Respiratory Rate 18 18 18 Blood Pressure 138/80 177/112 H 129/92 H Pulse Oximetry 96 93 97 Oxygen Delivery Method Room Air Room Air Room Air 11/22/23 03:16 11/22/23 07:55 11/22/23 12:00 Temperature 98 F 97.7 F Pulse Rate 87 80 81 Respiratory Rate 18 18 Blood Pressure 169/91 H 157/80 H 171/83 H Pulse Oximetry 98 95 96 Oxygen Delivery Method Room Air Room Air Room Air 11/22/23 12:36 11/22/23 15:22 11/22/23 15:23 Temperature 98.0 F Pulse Rate 103 H Respiratory Rate 19 Blood Pressure 171/83 H 193/100 H 193/100 H Pulse Oximetry 95 Oxygen Delivery Method Room Air BMI result Body Mass Index 35.3 Labs 11/21/23 22:55 11/22/23 11:32 Labs: Laboratory Results - last 48 hr 11/20/23 11/20/23 11/20/23 13:47 17:23 19:42 WBC RBC Hgb Hct MCV MCH MCHC RDW Plt Count MPV Immature Gran % (Auto) Neut % (Auto) Lymph % (Auto) [place] % (Auto) Eos % (Auto) Baso % (Auto) Lymph # (Auto) [place] # (Auto) Eos # (Auto) Baso # (Auto) Abs Immat Gran (auto) Absolute Neuts (auto) Absolute Nucleated RBC Nucleated RBC % (auto) PT 23.5 H INR 1.9 H VBG pH 7.41 VBG pCO2 42 VBG pO2 41 VBG HCO3 27 H VBG O2 Saturation 63.0 VBG Base Excess 2.7 Sodium Potassium Chloride Carbon Dioxide Anion Gap BUN Creatinine Estim Creat Clear Calc Estimated GFR Random Glucose Lactic Acid F/U @ 2Hr 4.0 H* Calcium Total Bilirubin AST ALT Alkaline Phosphatase Total Creatine Kinase Troponin I High Sens 10.3 B-Natriuretic Peptide 2913 H Total Protein Albumin Vitamin B12 TSH 1.97 Urine Color Yellow Urine Appearance Clear Urine pH 6.5 Ur Specific [place] 1.010 Urine Protein Negative Urine Glucose (UA) Negative Urine Ketones Negative Urine Blood Negative Urine Nitrite Negative Ur Leukocyte Esterase Trace H Urine RBC 0-2 Urine WBC 0-5 Ur Squamous Epith Cells 0-2 Urine Bacteria Trace Hyaline Casts 0-2 Urine Opiates Screen POSITIVE H Ur Buprenorphine Scrn Not Detected Ur Oxycodone Screen Not Detected Urine Methadone Screen Not Detected Urine Fentanyl Screen POSITIVE H Ur Barbiturates Screen Not Detected Ur Phencyclidine Scrn Not Detected Ur Amphetamines Screen Not Detected U Benzodiazepines Scrn Not Detected Urine Cocaine Screen POSITIVE H U Marijuana (THC) Screen Not Detected 11/21/23 11/21/23 11/22/23 15:32 22:55 11:32 WBC 12.5 H RBC 4.64 Hgb 13.6 L Hct 40.4 L D MCV 87.1 MCH 29.3 MCHC 33.7 RDW 19.9 H Plt Count 119 L MPV 10.5 Immature Gran % (Auto) 0.4 Neut % (Auto) 85.9 H Lymph % (Auto) 6.6 L [place] % (Auto) 6.9 Eos % (Auto) 0.0 Baso % (Auto) 0.2 Lymph # (Auto) 0.8 L [place] # (Auto) 0.9 Eos # (Auto) 0.0 Baso # (Auto) 0.0 Abs Immat Gran (auto) 0.05 H Absolute Neuts (auto) 10.8 H Absolute Nucleated RBC 0.000 Nucleated RBC % (auto) 0.0 PT INR VBG pH VBG pCO2 VBG pO2 VBG HCO3 VBG O2 Saturation VBG Base Excess Sodium Cancelled 141 142 Potassium Cancelled 3.4 3.0 L Chloride Cancelled 108 105 Carbon Dioxide Cancelled 21 L 26 Anion Gap Cancelled 14 14 BUN Cancelled 19 H 19 H Creatinine Cancelled 0.89 0.85 Estim Creat Clear Calc Cancelled 99.0 103.6 Estimated GFR Cancelled > 60 > 60 Random Glucose Cancelled 109 128 H Lactic Acid F/U @ 2Hr Calcium Cancelled 8.2 L 8.4 Total Bilirubin 2.8 H AST 16 ALT 9 Alkaline Phosphatase 69 Total Creatine Kinase Cancelled 18 L Troponin I High Sens B-Natriuretic Peptide Total Protein 5.4 L Albumin 2.8 L Vitamin B12 560 TSH Urine Color Urine Appearance Urine pH Ur Specific [place] Urine Protein Urine Glucose (UA) Urine Ketones Urine Blood Urine Nitrite Ur Leukocyte Esterase Urine RBC Urine WBC Ur Squamous Epith Cells Urine Bacteria Hyaline Casts Urine Opiates Screen Ur Buprenorphine Scrn Ur Oxycodone Screen Urine Methadone Screen Urine Fentanyl Screen Ur Barbiturates Screen Ur Phencyclidine Scrn Ur Amphetamines Screen U Benzodiazepines Scrn Urine Cocaine Screen U Marijuana (THC) Screen Imaging Radiology Impressions: ITS Impressions Venous Duplex 11/20/23 15:02 IMPRESSION: No evidence of deep venous thrombosis involving the right upper extremity. Chest X-Ray 11/20/23 16:22 IMPRESSION: 1. Clear lungs. 2. Cardiac silhouette is mildly enlarged unchanged from prior. Head CT 11/20/23 20:35 IMPRESSION: 1. No acute intracranial pathology. 2. Chronic small vessel ischemic disease and volume loss. Forearm CT 11/20/23 20:37 IMPRESSION: 1. Extensive diffuse circumferential soft tissue edema involving the entirety of the visualized arm. No focal soft tissue or intramuscular fluid collection to suggest abscess. 2. Short segments of the ulnar and radial artery with diminutive opacification, though this could represent artifact. Otherwise, the below elbow arteries are patent to the hand. Clinical correlation for compartment syndrome would be helpful. Mental Status Exam Mental Status Exam Patient Appearance: Appropriate Level of Consciousness: Awake, Appropriate and Alert Medications Medications Current Medications Atorvastatin Calcium (Atorvastatin Calcium 40 Mg Tablet) 40 mg PO BEDTIME [facility] Last Admin: 11/20/23 20:45 Dose: Not Given Carvedilol (Carvedilol 25 Mg Tablet) 25 mg PO BIDWM [facility]; Protocol Last Admin: 11/20/23 20:45 Dose: Not Given Ergocalciferol (Ergocalciferol (Vitamin D2) 1,250 Mcg Capsule) 1,250 mcg PO PATTERSON@0900 [facility] Last Admin: 11/21/23 09:51 Dose: Not Given Heparin Sodium (Porcine) (Heparin Sodium,Porcine 5,000 Unit/Ml Vial) 5,000 unit SUBCUT Q8H [facility] Last Admin: 11/22/23 15:24 Dose: 5,000 unit Hydralazine HCl (Hydralazine Hcl 25 Mg Tablet) 25 mg PO TID [facility]; Protocol Last Admin: 11/22/23 15:23 Dose: 25 mg Furosemide 200 mg/ Sodium (Chloride) 100 mls @ 2.5 mls/hr IVCONT .Q24H [facility] Last Admin: 11/22/23 02:04 Dose: 5 mg/hr, 2.5 mls/hr Ceftriaxone Sodium 1 gm/ (Sodium Chloride) 50 mls @ 100 mls/hr IV Q24H [facility] Last Infusion: 11/22/23 07:55 Dose: Infused Doxycycline Hyclate 100 mg/ (Sodium Chloride) 250 mls @ 166.67 mls/hr IV Q12H [facility] Last Infusion: 11/22/23 11:03 Dose: Infused Isosorbide Mononitrate (Isosorbide Mononitrate 30 Mg Tab.Er.24h) 30 mg PO DAILY [facility]; Protocol Last Admin: 11/22/23 12:36 Dose: 30 mg Lisinopril (Lisinopril 40 Mg Tablet) 40 mg PO BEDTIME [facility]; Protocol Last Admin: 11/20/23 20:45 Dose: Not Given Potassium Chloride (Potassium Chloride Er 20 Meq Tab.Er.Prt) 40 meq PO DAILY [facility] Last Admin: 11/22/23 15:24 Dose: 40 meq Sodium Chloride (0.9 % Sodium Chloride Flush 3 Ml Syringe) 3 ml IVFLUSH QSHIFT [facility] Last Admin: 11/22/23 15:24 Dose: 3 ml Allergies Allergies Allergy/AdvReac Type Severity Reaction Status Date / Time Penicillins [PENICILLINS] Allergy Intermediate HIVES Verified 11/20/23 12:49 Assessment & Plan Assessment & Plan (1) Opioid use disorder: Status: Acute Code(s): F11.90 - Opioid use, unspecified, uncomplicated Assessment and Plan: Reviewed options for treatment (MOUD) patient very clear that he does not want suboxone due to previous experience with medication methadone 10mg q4H PRN max of 4 doses follow up in AM Total time managing care of this patient today ____ minutes. PMFSH Past Medical History Medical History Ischemic cardiomyopathy Social History Social History Household Members: None Housing: Apartment Do you presently have visiting nurse or other home services: No Patient Tobacco Use Status: Never used Tobacco Smoked in Last 30 Days: No Patient Interested in Nicotine Replacement: No Patient Given Instructions on How to Stop Smoking: No Second Hand Smoke Exposure: No Use of substances other than those prescribed or required for medical reasons: Yes Substance Use Type: Heroin Substance Use Frequency: Daily Currently Displaying Signs/Symptoms of Drug Intoxication Withdrawal: No Have you been hit, kicked, punched, or otherwise hurt by someone within the past year? If so, by whom?: No Do you feel safe in your current relationship?: No Current Relationship Is there a partner from a previous relationship who is making you feel unsafe now?: No Are you made to feel afraid or neglected: No Advance Directives: No Advance Directives Information Provided: Yes Do you have a plan to hurt others: No Plan Recently lost weight without trying: Unsure Eating poorly because of decreased appetite: No Nutrition Risks: No Nutritional Risk Poor oral hygiene: Yes service: No
[2023-11-23] VITALS (8 sets, daily range): BP systolic 144–181; BP diastolic 68–92; PULSE 74–88; RESP 18; TEMP 36.4–36.9; O2SAT 97–98; BMI 33.4
[2023-11-23] MEDS: Heparin Sodium,Porcine 5,000 UNIT/ML VIAL 5000 UNIT SUBCUT ×2 (02:03→15:22)
[2023-11-23] MEDS: methADONE HCl 20 MG/2 ML ORAL.CONC 10 MG PO ×3 (02:16→15:21)
[2023-11-23] MEDS: cefTRIAXone sodium 1 GM in 0.9 % Sodium Chloride 50 ML IV (06:28)
[2023-11-23] MEDS: hydrALAZINE HCl 25 MG TABLET PO (08:48)
[2023-11-23] MEDS: Isosorbide Mononitrate 30 MG TAB.ER.24H PO (08:48)
[2023-11-23] MEDS: 0.9 % Sodium Chloride Flush 3 ML SYRINGE IVFLUSH ×3 (08:49→21:42)
--- NOTE | 2023-11-23 09:44 | HO.MIDLINE ---
Midline Insertion MIDLINE INSERTION Indication: IV diuretics and lab draws Pertinent Labs: reviewed Technique: Using sterile technique including cap and mask, glove and drape, the left arm was prepped and draped in the usual sterile fashion of full barrier technique with G. Using ultrasound guidance, left basilic vein access was obtained by Andres Banks PA-C. 4fr non PASV single lumen midline catheter was positioned. The procedure was performed in rm [id number]. Ultrasound was used to document vein patency and for needle entry. A formal ultrasound picture was recorded. Vascular Senior Administrative Services Officer has released the line for use and it is currently dressed with a StatLock, Tegaderm, and CHG disc. Verification has been performed for blood return and line patency. Arm Circumference: 38c, Equipment: BARD single lumen PowerMidline catheter Catheter Type: 4fr single lumen nonPASV power midline catheter Lot #: [id number]
[2023-11-23] MEDS: Potassium Chloride ER 20 MEQ TAB.ER.PRT 40 MEQ PO (10:39)
[2023-11-23] MEDS: Doxycycline Hyclate 100 MG in 0.9 % Sodium Chloride 250 ML 166.67 MG IV ×2 (10:40→21:42)
--- NOTE | 2023-11-23 11:05 | P.PNIM_ITS ---
Subjective Subjective Date of Service: 11/23/23 Interval History: seen in f/u for decompensated cardiomyopathy, anasarca There is still swelling in the arms and but wrinkles in the legs, he is not sob he admits to using drugs and denies withdrawal symptoms. He became noticeably somnolent and confused following a brief visit by a friend we suspect might have brought him drugs. When I went up to see him, he was awake talking to me in full sentence, not sleepy and denies that anyone visited, there is now a camera in the room Physical Exam 2 Vital Signs: Vital Signs: Last Vital Signs Temp 98.2 F 11/23/23 08:00 Pulse 88 11/23/23 08:00 Resp 18 11/23/23 08:00 BP 177/92 H 11/23/23 08:00 Pulse Ox 97 11/23/23 08:00 O2 Del Method Room Air 11/23/23 08:00 BMI result Body Mass Index 35.3 General: AO X 3, no acute distress Resp: lungs clear, no dixtress CVS: S1,S2,RRR GI: +BS, NT, no distention Skin: diffuse swelling in the arm, but no edema in the legs Neuro: motor grossly intact Psych: appropriate affect Objective Data Active Medications Atorvastatin Calcium (Atorvastatin Calcium 40 Mg Tablet) 40 mg PO BEDTIME [facility] Last Admin: 11/20/23 20:45 Dose: Not Given Documented By: COREY Non-Admin Reason: Patient Condition Contraindication Carvedilol (Carvedilol 25 Mg Tablet) 25 mg PO BIDWM [facility]; Protocol Last Admin: 11/20/23 20:45 Dose: Not Given Documented By: COREY Non-Admin Reason: Patient Condition Contraindication Ergocalciferol (Ergocalciferol (Vitamin D2) 1,250 Mcg Capsule) 1,250 mcg PO PATTERSON@0900 [facility] Last Admin: 11/21/23 09:51 Dose: Not Given Documented By: KEYSHA Non-Admin Reason: NPO Heparin Sodium (Porcine) (Heparin Sodium,Porcine 5,000 Unit/Ml Vial) 5,000 unit SUBCUT Q8H [facility] Last Admin: 11/23/23 09:59 Dose: Not Given Documented By: RAMESH Non-Admin Reason: Off Unit: Surgery Hydralazine HCl (Hydralazine Hcl 25 Mg Tablet) 25 mg PO TID [facility]; Protocol Last Admin: 11/23/23 08:48 Dose: 25 mg Documented By: DALY Furosemide 200 mg/ Sodium (Chloride) 100 mls @ 2.5 mls/hr IVCONT .Q24H [facility] Last Admin: 11/23/23 00:00 Dose: Not Given Documented By: TO Non-Admin Reason: IV Running Ceftriaxone Sodium 1 gm/ (Sodium Chloride) 50 mls @ 100 mls/hr IV Q24H [facility] Last Infusion: 11/23/23 06:58 Dose: Infused Documented By: TO Doxycycline Hyclate 100 mg/ (Sodium Chloride) 250 mls @ 166.67 mls/hr IV Q12H [facility] Last Admin: 11/23/23 10:40 Dose: 166.67 mls/hr Documented By: DALY Isosorbide Mononitrate (Isosorbide Mononitrate 30 Mg Tab.Er.24h) 30 mg PO DAILY [facility]; Protocol Last Admin: 11/23/23 08:48 Dose: 30 mg Documented By: DALY Lisinopril (Lisinopril 40 Mg Tablet) 40 mg PO BEDTIME [facility]; Protocol Last Admin: 11/20/23 20:45 Dose: Not Given Documented By: COREY Non-Admin Reason: Patient Condition Contraindication Methadone HCl (Methadone Hcl 20 Mg/2 Ml Oral.Conc) 10 mg PO Q4H PRN PRN Reason: Opiate Withdrawal Last Admin: 11/23/23 08:49 Dose: 10 mg Documented By: DALY Potassium Chloride (Potassium Chloride Er 20 Meq Tab.Er.Prt) 40 meq PO DAILY [facility] Last Admin: 11/23/23 10:39 Dose: 40 meq Documented By: DALY Sodium Chloride (0.9 % Sodium Chloride Flush 3 Ml Syringe) 3 ml IVFLUSH QSHIFT [facility] Last Admin: 11/23/23 08:49 Dose: 3 ml Documented By: DALY Labs 11/21/23 22:55 11/22/23 11:32 Labs: Laboratory Results - last 24 hr 11/22/23 11/23/23 11:32 10:34 Hold Purple Top SEE NOTE Anion Gap 14 Estim Creat Clear Calc 103.6 Estimated GFR > 60 Random Glucose 128 H Calcium 8.4 Microbiology Microbiology Results: Microbiology 11/20/23 14:40 Blood Culture - Preliminary Blood - Venous No growth after 48 hours. 11/20/23 13:47 Blood Culture - Preliminary Blood - Venous No growth after 48 hours. Assessment and Plan (1) Cellulitis of right forearm: Status: Acute (2) CHF (congestive heart failure): Status: Acute (3) Anasarca: Status: Acute (4) Ischemic cardiomyopathy: Status: Acute Plan 78 y/o man with PMHx significant for ischemic cardiomyopathy s/p AICD admitted with: Anasarca. Likely secondary to ischemic cardiomyopathy, low albumin. No proteinuria. -Lasix IV drip -Monitor I/O, electrolytes -cardiology consult -echo EF 25 to 30% Right forearm and arm cellulitis. Right upper extremity venous ultrasound and CT scan are unremarkable except for edema. No clinical evidence of compartment syndrome. Empiric IV antibiotic therapy with Doxy. stopped ceftriaxone Lactic acidosis, 4.0. No sepsis/SIRS criteria. Normal pH and bicarb. Acute encephalopathy. Suspecting this is secondary to drug use (urine toxicology is positive for fentanyl, opiates and cocaine). resolved Elevated bilirubin--likely from passive liver congestion from fluid overload, trending down Hyperlipidemia. Continue statin when able. Essential hypertension. Continue lisinopril Substance usd disorder--addiction med consult, no withdrawal dymptoms Code status: Full DVT prophylaxis: Heparin subcut need for inpatient: management for anasarca treatment with IV Lasix drip and albumin. Patient will also need evaluation by subspecialty. Quality Stroke Does the patient have a stroke diagnosis?: No VTE Prior VTE?: No VTE Risk Level:: Medical - moderate - high VTE Device Contraindication: Treatment Not Indicated VTE Drug Contraindication: N/A - Med Ordered
[2023-11-23 11:06] LABS: MANUAL DIFF FLAG NO
[2023-11-23 11:11] LABS: Basophils Percent Auto 0.1 % (0-2); Eosinophils Absolute Auto 0.1 X10*3/uL (0.0-0.4); Eosinophils Percent Auto 0.5 % (0-4); Hematocrit 37.7 % (42.0-52.0); Hemoglobin 12.6 g/dl (14.0-18.0); Imm Gran Abs Auto 0.04 X10*3/uL (0.00-0.03); Imm Gran Pct Auto 0.4 % (0.0-0.4); Lymphocytes Percent Auto 10.8 % (20-40); Mean Corpuscular HGB Conc 33.4 g/dl (31.0-36.0); Mean Corpuscular Volume 86.7 fL (80.0-98.0); Mean Platelet Volume 11.4 fL (9.4-12.4); Monocytes Absolute Auto 0.8 X10*3/uL (0.1-1.2); Monocytes Percent Auto 8.7 % (2-11); Neutrophils Absolute Auto 7.7 x10*3/uL (2.0-8.3); Neutrophils Percent Auto 79.5 % (45-73); Platelet Count 146 X10*3/uL (160-400); Red Blood Count 4.35 X10*6/uL (4.60-5.80); Red Cell Distribution Width 19.2 % (11.0-16.0); White Blood Count 9.6 X10*3/uL (4.8-10.8)
--- NOTE | 2023-11-23 15:17 | HO.ADDICTPRO ---
Subjective Subjective Date of Service: 11/23/23 Reason For Visit: Anasarca, acute encephalopathy Interim History: Patient seen in follow up Brighter affect, slightly more engagable Received methadone 10mg around 2am and again at 8am. He reports it has been helpful, but it is somewhat difficult to elicit any further information as to how it has been helpful Denies nausea, anxiety, stomach cramps. Review of Systems Acute medical concerns: Yes Review of Systems Constitutional: Reports as per HPI Mental Status Exam Mental Status Exam Patient Appearance: Appropriate Level of Consciousness: Awake, Appropriate and Alert Patient Behavior: Guarded and Cooperative Diagnostics Vital Signs (24Hr): Vital Signs - 24 hr 11/22/23 15:22 11/22/23 15:23 11/22/23 19:31 Temperature 98.0 F 98 F Pulse Rate 103 H 87 Respiratory Rate 19 18 Blood Pressure 193/100 H 193/100 H 167/79 H Pulse Oximetry 95 96 Oxygen Delivery Method Room Air Room Air 11/22/23 21:41 11/22/23 21:55 11/22/23 23:59 Temperature 98 F Pulse Rate 76 Respiratory Rate 18 Blood Pressure 166/84 H 166/84 H 160/94 H Pulse Oximetry 98 Oxygen Delivery Method Room Air 11/23/23 03:01 11/23/23 08:00 11/23/23 12:00 Temperature 98 F 98.2 F 97.6 F Pulse Rate 75 88 74 Respiratory Rate 18 18 18 Blood Pressure 181/86 H 177/92 H 181/89 H Pulse Oximetry 98 97 98 Oxygen Delivery Method Room Air Room Air Room Air BMI result Body Mass Index 35.3 Labs 11/23/23 10:34 11/22/23 11:32 Labs: Laboratory Results - last 48 hr 11/21/23 11/21/23 11/22/23 15:32 22:55 11:32 WBC 12.5 H RBC 4.64 Hgb 13.6 L Hct 40.4 L D MCV 87.1 MCH 29.3 MCHC 33.7 RDW 19.9 H Plt Count 119 L MPV 10.5 Immature Gran % (Auto) 0.4 Neut % (Auto) 85.9 H Lymph % (Auto) 6.6 L [place] % (Auto) 6.9 Eos % (Auto) 0.0 Baso % (Auto) 0.2 Lymph # (Auto) 0.8 L [place] # (Auto) 0.9 Eos # (Auto) 0.0 Baso # (Auto) 0.0 Abs Immat Gran (auto) 0.05 H Absolute Neuts (auto) 10.8 H Absolute Nucleated RBC 0.000 Nucleated RBC % (auto) 0.0 Hold Purple Top Sodium Cancelled 141 142 Potassium Cancelled 3.4 3.0 L Chloride Cancelled 108 105 Carbon Dioxide Cancelled 21 L 26 Anion Gap Cancelled 14 14 BUN Cancelled 19 H 19 H Creatinine Cancelled 0.89 0.85 Estim Creat Clear Calc Cancelled 99.0 103.6 Estimated GFR Cancelled > 60 > 60 Random Glucose Cancelled 109 128 H Calcium Cancelled 8.2 L 8.4 Total Bilirubin 2.8 H AST 16 ALT 9 Alkaline Phosphatase 69 Total Creatine Kinase Cancelled 18 L Total Protein 5.4 L Albumin 2.8 L Vitamin B12 560 11/23/23 10:34 WBC 9.6 RBC 4.35 L Hgb 12.6 L Hct 37.7 L MCV 86.7 MCH 29.0 MCHC 33.4 RDW 19.2 H Plt Count 146 L MPV 11.4 Immature Gran % (Auto) 0.4 Neut % (Auto) 79.5 H Lymph % (Auto) 10.8 L [place] % (Auto) 8.7 Eos % (Auto) 0.5 Baso % (Auto) 0.1 Lymph # (Auto) 1.0 L [place] # (Auto) 0.8 Eos # (Auto) 0.1 Baso # (Auto) 0.0 Abs Immat Gran (auto) 0.04 H Absolute Neuts (auto) 7.7 Absolute Nucleated RBC 0.000 Nucleated RBC % (auto) 0.0 Hold Purple Top SEE NOTE Sodium Potassium Chloride Carbon Dioxide Anion Gap BUN Creatinine Estim Creat Clear Calc Estimated GFR Random Glucose Calcium Total Bilirubin AST ALT Alkaline Phosphatase Total Creatine Kinase Total Protein Albumin Vitamin B12 Imaging Radiology Impressions: ITS Impressions Venous Duplex 11/20/23 15:02 IMPRESSION: No evidence of deep venous thrombosis involving the right upper extremity. Chest X-Ray 11/20/23 16:22 IMPRESSION: 1. Clear lungs. 2. Cardiac silhouette is mildly enlarged unchanged from prior. Head CT 11/20/23 20:35 IMPRESSION: 1. No acute intracranial pathology. 2. Chronic small vessel ischemic disease and volume loss. Forearm CT 11/20/23 20:37 IMPRESSION: 1. Extensive diffuse circumferential soft tissue edema involving the entirety of the visualized arm. No focal soft tissue or intramuscular fluid collection to suggest abscess. 2. Short segments of the ulnar and radial artery with diminutive opacification, though this could represent artifact. Otherwise, the below elbow arteries are patent to the hand. Clinical correlation for compartment syndrome would be helpful. Medications Medications Current Medications Atorvastatin Calcium (Atorvastatin Calcium 40 Mg Tablet) 40 mg PO BEDTIME [facility] 234 BEDS AT [facility] Last Admin: 11/20/23 20:45 Dose: Not Given Carvedilol (Carvedilol 25 Mg Tablet) 25 mg PO BIDWM [facility]S [facility]CLUDE 234 BEDS AT [facility]; Protocol Last Admin: 11/20/23 20:45 Dose: Not Given Ergocalciferol (Ergocalciferol (Vitamin D2) 1,250 Mcg Capsule) 1,250 mcg PO PATTERSON@0900 [facility]S [facility]CLUDE 234 BEDS AT THE [facility] Last Admin: 11/21/23 09:51 Dose: Not Given Heparin Sodium (Porcine) (Heparin Sodium,Porcine 5,000 Unit/Ml Vial) 5,000 unit SUBCUT Q8H [facility] 234 BEDS AT [facility] Last Admin: 11/23/23 09:59 Dose: Not Given Hydralazine HCl (Hydralazine Hcl 50 Mg Tablet) 50 mg PO TID [facility] 234 BEDS AT [facility]; Protocol Furosemide 200 mg/ Sodium (Chloride) 100 mls @ 2.5 mls/hr IVCONT .Q24H [facility] 234 BEDS AT [facility] Last Admin: 11/23/23 00:00 Dose: Not Given Ceftriaxone Sodium 1 gm/ (Sodium Chloride) 50 mls @ 100 mls/hr IV Q24H [facility] 234 BEDS AT [facility] Last Infusion: 11/23/23 06:58 Dose: Infused Doxycycline Hyclate 100 mg/ (Sodium Chloride) 250 mls @ 166.67 mls/hr IV Q12H [facility] 234 BEDS AT [facility] Last Infusion: 11/23/23 12:41 Dose: Infused Isosorbide Mononitrate (Isosorbide Mononitrate 30 Mg Tab.Er.24h) 30 mg PO DAILY [facility] 234 BEDS AT [facility]; Protocol Last Admin: 11/23/23 08:48 Dose: 30 mg Lisinopril (Lisinopril 40 Mg Tablet) 40 mg PO BEDTIME [facility] 234 BEDS AT [facility]; Protocol Last Admin: 11/20/23 20:45 Dose: Not Given Methadone HCl (Methadone Hcl 20 Mg/2 Ml Oral.Conc) 20 mg PO DAILY@0600 [facility]S [facility]CLUDE 234 BEDS AT [facility] Potassium Chloride (Potassium Chloride Er 20 Meq Tab.Er.Prt) 40 meq PO DAILY [facility] 234 BEDS AT [facility] Last Admin: 11/23/23 10:39 Dose: 40 meq Sodium Chloride (0.9 % Sodium Chloride Flush 3 Ml Syringe) 3 ml IVFLUSH QSHIFT [facility]S [facility]CLUDE 234 BEDS AT THE [facility] Last Admin: 11/23/23 08:49 Dose: 3 ml Allergies Allergies Allergy/AdvReac Type Severity Reaction Status Date / Time Penicillins [PENICILLINS] Allergy Intermediate HIVES Verified 11/20/23 12:49 Assessment & Plan Assessment & Plan (1) Opioid use disorder: Status: Acute Code(s): F11.90 - Opioid use, unspecified, uncomplicated Assessment and Plan: methadone 20mg QD--will adjust dose as necessary HIV and Hep C screen will continue to follow head baggage porter to coordinate OTP referral Total time managing care of this patient today _20___ minutes.
[2023-11-23] MEDS: hydrALAZINE HCl 50 MG TABLET PO ×2 (15:22→21:41)
[2023-11-23 16:16] LABS: Anion Gap 15 (12-20); Blood Urea Nitrogen 15 mg/dL (9-16); Calcium 7.9 mg/dL (8.4-10.2); Carbon Dioxide 25 mmol/L (22-29); Chloride 104 mmol/L (96-108); Creatinine Clr Calc Pharmacy 120.7; Estimated Glomerular Filt Rate > 60; Glucose Random 85 mg/dL (60-115); Sodium 140 mmol/L (135-145)
[2023-11-23] MEDS: Furosemide 200 MG in 0.9 % Sodium Chloride 80 ML IVCONT (18:22)
[2023-11-24] VITALS (8 sets, daily range): BP systolic 140–183; BP diastolic 78–95; PULSE 71–97; RESP 18–24; TEMP 36.6–37.4; O2SAT 94–98
[2023-11-24] MEDS: Heparin Sodium,Porcine 5,000 UNIT/ML VIAL 5000 UNIT SUBCUT ×3 (00:53→16:50)
[2023-11-24] MEDS: methADONE HCl 20 MG/2 ML ORAL.CONC PO (05:54)
[2023-11-24] MEDS: cefTRIAXone sodium 1 GM in 0.9 % Sodium Chloride 50 ML IV (05:55)
[2023-11-24 08:13] LABS: ~HepC Num1 0.27 S/CO (0.00-0.79); ~Hepatitis C Antibody Nonreactive (Nonreactive)
[2023-11-24 08:18] LABS: HIV AB/AG Nonreactive (Nonreactive); HIV Num 1 0.04 S/CO (0.00-0.99)
[2023-11-24] MEDS: Doxycycline Monohydrate 100 MG CAPSULE PO ×2 (09:01→22:26)
[2023-11-24] MEDS: 0.9 % Sodium Chloride Flush 3 ML SYRINGE IVFLUSH ×3 (09:01→19:52)
[2023-11-24] MEDS: hydrALAZINE HCl 50 MG TABLET PO (09:03)
[2023-11-24] MEDS: Isosorbide Mononitrate 30 MG TAB.ER.24H PO (09:03)
--- NOTE | 2023-11-24 11:00 | P.PNIM_ITS ---
Subjective Subjective Date of Service: 11/24/23 Interval History: seen in f/u for decompensated cardiomyopathy, anasarca still has swelling in arms but not the legs, has no sob, wants to leave [facility] Physical Exam 2 Vital Signs: Vital Signs: Last Vital Signs Temp 98.0 F 11/24/23 07:20 Pulse 82 11/24/23 07:20 Resp 18 11/24/23 07:20 BP 140/95 H 11/24/23 07:20 Pulse Ox 98 11/24/23 07:20 O2 Del Method Room Air 11/24/23 07:20 BMI result Body Mass Index 35.3 General: AO X 3, no acute distress Resp: lungs clear, no dixtress CVS: S1,S2,RRR GI: +BS, NT, no distention Skin: diffuse swelling in the arm, but no edema in the legs Neuro: motor grossly intact Psych: appropriate affect Objective Data Active Medications Atorvastatin Calcium (Atorvastatin Calcium 40 Mg Tablet) 40 mg PO BEDTIME [facility] Last Admin: 11/20/23 20:45 Dose: Not Given Documented By: COREY Non-Admin Reason: Patient Condition Contraindication Carvedilol (Carvedilol 25 Mg Tablet) 25 mg PO BIDWM [facility]; Protocol Last Admin: 11/20/23 20:45 Dose: Not Given Documented By: COREY Non-Admin Reason: Patient Condition Contraindication Doxycycline Monohydrate (Doxycycline Monohydrate 100 Mg Capsule) 100 mg PO Q12H [facility] Last Admin: 11/24/23 09:01 Dose: 100 mg Documented By: DALY Ergocalciferol (Ergocalciferol (Vitamin D2) 1,250 Mcg Capsule) 1,250 mcg PO PATTERSON@0900 [facility] Last Admin: 11/21/23 09:51 Dose: Not Given Documented By: KEYSHA Non-Admin Reason: NPO Heparin Sodium (Porcine) (Heparin Sodium,Porcine 5,000 Unit/Ml Vial) 5,000 unit SUBCUT Q8H [facility] Last Admin: 11/24/23 09:02 Dose: 5,000 unit Documented By: DALY Hydralazine HCl (Hydralazine Hcl 50 Mg Tablet) 50 mg PO TID [facility]; Protocol Last Admin: 11/24/23 09:03 Dose: 50 mg Documented By: DALY Furosemide 200 mg/ Sodium (Chloride) 100 mls @ 2.5 mls/hr IVCONT .Q24H [facility] Last Admin: 11/24/23 00:51 Dose: Not Given Documented By: PARISH Non-Admin Reason: full bag hanging Ceftriaxone Sodium 1 gm/ (Sodium Chloride) 50 mls @ 100 mls/hr IV Q24H [facility] Last Infusion: 11/24/23 06:35 Dose: Infused Documented By: PARISH Isosorbide Mononitrate (Isosorbide Mononitrate 30 Mg Tab.Er.24h) 30 mg PO DAILY [facility]; Protocol Last Admin: 11/24/23 09:03 Dose: 30 mg Documented By: DALY Lisinopril (Lisinopril 40 Mg Tablet) 40 mg PO BEDTIME [facility]; Protocol Last Admin: 11/20/23 20:45 Dose: Not Given Documented By: COREY Non-Admin Reason: Patient Condition Contraindication Methadone HCl (Methadone Hcl 20 Mg/2 Ml Oral.Conc) 20 mg PO DAILY@0600 [facility] Last Admin: 11/24/23 05:54 Dose: 20 mg Documented By: PARISH Sodium Chloride (0.9 % Sodium Chloride Flush 3 Ml Syringe) 3 ml IVFLUSH QSHIFT [facility] Last Admin: 11/24/23 09:01 Dose: 3 ml Documented By: DALY Labs 11/23/23 10:34 11/23/23 15:30 Labs: Laboratory Results - last 24 hr 11/23/23 11/23/23 10:34 15:30 MCV 86.7 MCH 29.0 MCHC 33.4 RDW 19.2 H Plt Count 146 L MPV 11.4 Immature Gran % (Auto) 0.4 Neut % (Auto) 79.5 H Lymph % (Auto) 10.8 L [place] % (Auto) 8.7 Eos % (Auto) 0.5 Baso % (Auto) 0.1 Lymph # (Auto) 1.0 L [place] # (Auto) 0.8 Eos # (Auto) 0.1 Baso # (Auto) 0.0 Abs Immat Gran (auto) 0.04 H Absolute Neuts (auto) 7.7 Absolute Nucleated RBC 0.000 Nucleated RBC % (auto) 0.0 Anion Gap 15 Estim Creat Clear Calc 120.7 Estimated GFR > 60 Random Glucose 85 Calcium 7.9 L Hepatitis C Ab (EIA) Nonreactive HIV 1&2 Ab/P24 Ag 4thGn Nonreactive Assessment and Plan (1) Cellulitis of right forearm: Status: Acute (2) CHF (congestive heart failure): Status: Acute (3) Anasarca: Status: Acute (4) Ischemic cardiomyopathy: Status: Acute Plan 78 y/o man with PMHx significant for ischemic cardiomyopathy s/p AICD admitted with: Anasarca. Likely secondary to ischemic cardiomyopathy, low albumin. No proteinuria. -Lasix IV drip--to Oral Lasix today -Monitor I/O, electrolytes -negative 5 liters total, -cardiology consult -echo EF 25 to 30% Right forearm and arm cellulitis. Right upper extremity venous ultrasound and CT scan are unremarkable except for edema. No clinical evidence of compartment syndrome. Empiric IV antibiotic therapy with Doxy. stopped ceftriaxone Lactic acidosis, 4.0. No sepsis/SIRS criteria. Normal pH and bicarb. Acute encephalopathy. Suspecting this is secondary to drug use (urine toxicology is positive for fentanyl, opiates and cocaine). resolved Elevated bilirubin--likely from passive liver congestion from fluid overload, trending down Hyperlipidemia. Continue statin when able. Essential hypertension. Continue lisinopril, imdur and hydralazine and Coreg Substance usd disorder--addiction med consult, no withdrawal symptoms--started on methadone Code status: Full DVT prophylaxis: Heparin subcut need for inpatient: management for anasarca treatment with IV Lasix drip and albumin. Patient will also need evaluation by subspecialty. PT is recommending STR but he's refusing Quality Stroke Does the patient have a stroke diagnosis?: No VTE Prior VTE?: No VTE Risk Level:: Medical - moderate - high VTE Device Contraindication: Treatment Not Indicated VTE Drug Contraindication: N/A - Med Ordered
--- NOTE | 2023-11-24 14:48 | PM.PNCARD ---
Subjective Subjective Date of Service: 11/24/23 Interval history: Seen examined at bedside. Continues to have bilateral upper extremity edema. Clinically appears to be euvolemic at this point. Blood pressure is still significantly elevated. Physical Exam Vital Signs: Last Vital Signs Temp 99.3 F 11/24/23 11:18 Pulse 74 11/24/23 11:18 Resp 20 11/24/23 11:18 BP 174/85 H 11/24/23 11:18 Pulse Ox 96 11/24/23 11:18 O2 Del Method Room Air 11/24/23 11:18 BMI result Body Mass Index 35.3 GENERAL APPEARANCE: In no acute distress. NECK: no carotid bruit, no jugular venous distention. SKIN: no suspicious lesions, warm and dry. HEART: no murmurs, regular rate and rhythm. LUNGS: clear to auscultation bilaterally. ABDOMEN: soft, nontender. EXTREMITIES: Bilateral upper extremity pitting edema. No significant lower extremity edema. PERIPHERAL PULSES: equal. NEUROLOGIC: No gross deficits, AAO X 3 Objective Labs and Meds 11/23/23 10:34 11/23/23 15:30 Lab results: Laboratory Results - last 24 hr 11/23/23 11/23/23 10:34 15:30 Sodium 140 Potassium 4.0 D Chloride 104 Carbon Dioxide 25 Anion Gap 15 BUN 15 Creatinine 0.73 Estim Creat Clear Calc 120.7 Estimated GFR > 60 Random Glucose 85 Calcium 7.9 L Hepatitis C Ab (EIA) Nonreactive HIV 1&2 Ab/P24 Ag 4thGn Nonreactive Progress Note: A&P Assessment and plan (1) Opioid use disorder: Status: Acute (2) Cellulitis of right forearm: Status: Acute (3) CHF (congestive heart failure): Status: Acute Plan [age] year gentleman with known cardiomyopathy presenting with significantly elevated blood pressure and congestive heart failure along with bilateral upper extremity pitting edema. Blood pressure continues to be elevated. He is on carvedilol, lisinopril, hydralazine 50 t.i.d. and isosorbide. Titrate hydralazine to 100 mg 3 times a day. Unclear etiology for upper extremity edema. He has been treated as cellulitis but no significant improvement. Not due to congestive heart failure. Thank you for allowing me to participate in the care of your patient. Please feel free to contact me if you have any questions. Time Spent With Patient Time: Total time managing care of this patient today ____ minutes. Progress Note: Quality Stroke Does the patient have a stroke diagnosis?: No Procedures Date of Service Date of Service: 11/24/23
--- NOTE | 2023-11-24 15:22 | P.PNADD_ITS ---
Subjective Subjective Date of Service: 11/24/23 Reason For Visit: Anasarca, acute encephalopathy Interim History: Patient seen in follow up Requesting methadone dose later in the morning after breakfast Denies any withdrawal sx Denies any cravings no issues with sleep --appetite improving does not wish to increase dose any further at this time Review of Systems Acute medical concerns: Yes Review of Systems Constitutional: Reports as per HPI Mental Status Exam Mental Status Exam Patient Appearance: Appropriate Level of Consciousness: Awake, Appropriate and Alert Patient Behavior: Appropriate and Cooperative Mood Description: Constricted Affect Description: Constricted Speech Pattern: Clear Diagnostics Vital Signs (24Hr): Vital Signs - 24 hr 11/23/23 16:00 11/23/23 19:22 11/23/23 21:41 Temperature 97.6 F 98.5 F Pulse Rate 83 78 Respiratory Rate 18 18 Blood Pressure 147/79 H 175/89 H 175/89 H Pulse Oximetry 97 97 Oxygen Delivery Method Room Air Room Air 11/23/23 23:37 11/24/23 03:05 11/24/23 07:20 Temperature 98.3 F 98 F 98.0 F Pulse Rate 82 80 82 Respiratory Rate 18 18 18 Blood Pressure 144/68 H 155/78 H 140/95 H Pulse Oximetry 97 94 98 Oxygen Delivery Method Room Air Room Air Room Air 11/24/23 11:18 11/24/23 15:09 Temperature 99.3 F 98.0 F Pulse Rate 74 75 Respiratory Rate 20 22 H Blood Pressure 174/85 H 179/90 H Pulse Oximetry 96 98 Oxygen Delivery Method Room Air Room Air BMI result Body Mass Index 35.3 Labs 11/23/23 10:34 11/25/23 07:49 Labs: Laboratory Results - last 48 hr 11/23/23 11/23/23 10:34 15:30 WBC 9.6 RBC 4.35 L Hgb 12.6 L Hct 37.7 L MCV 86.7 MCH 29.0 MCHC 33.4 RDW 19.2 H Plt Count 146 L MPV 11.4 Immature Gran % (Auto) 0.4 Neut % (Auto) 79.5 H Lymph % (Auto) 10.8 L [place] % (Auto) 8.7 Eos % (Auto) 0.5 Baso % (Auto) 0.1 Lymph # (Auto) 1.0 L [place] # (Auto) 0.8 Eos # (Auto) 0.1 Baso # (Auto) 0.0 Abs Immat Gran (auto) 0.04 H Absolute Neuts (auto) 7.7 Absolute Nucleated RBC 0.000 Nucleated RBC % (auto) 0.0 Hold Purple Top SEE NOTE Sodium 140 Potassium 4.0 D Chloride 104 Carbon Dioxide 25 Anion Gap 15 BUN 15 Creatinine 0.73 Estim Creat Clear Calc 120.7 Estimated GFR > 60 Random Glucose 85 Calcium 7.9 L Hepatitis C Ab (EIA) Nonreactive HIV 1&2 Ab/P24 Ag 4thGn Nonreactive Imaging Radiology Impressions: ITS Impressions Venous Duplex 11/20/23 15:02 IMPRESSION: No evidence of deep venous thrombosis involving the right upper extremity. Chest X-Ray 11/20/23 16:22 IMPRESSION: 1. Clear lungs. 2. Cardiac silhouette is mildly enlarged unchanged from prior. Head CT 11/20/23 20:35 IMPRESSION: 1. No acute intracranial pathology. 2. Chronic small vessel ischemic disease and volume loss. Forearm CT 11/20/23 20:37 IMPRESSION: 1. Extensive diffuse circumferential soft tissue edema involving the entirety of the visualized arm. No focal soft tissue or intramuscular fluid collection to suggest abscess. 2. Short segments of the ulnar and radial artery with diminutive opacification, though this could represent artifact. Otherwise, the below elbow arteries are patent to the hand. Clinical correlation for compartment syndrome would be helpful. Medications Medications Current Medications Atorvastatin Calcium (Atorvastatin Calcium 40 Mg Tablet) 40 mg PO BEDTIME [facility] Last Admin: 11/20/23 20:45 Dose: Not Given Carvedilol (Carvedilol 25 Mg Tablet) 25 mg PO BIDWM [facility]; Protocol Last Admin: 11/20/23 20:45 Dose: Not Given Doxycycline Monohydrate (Doxycycline Monohydrate 100 Mg Capsule) 100 mg PO Q12H [facility] Last Admin: 11/24/23 09:01 Dose: 100 mg Ergocalciferol (Ergocalciferol (Vitamin D2) 1,250 Mcg Capsule) 1,250 mcg PO PATTERSON@0900 [facility] Last Admin: 11/21/23 09:51 Dose: Not Given Heparin Sodium (Porcine) (Heparin Sodium,Porcine 5,000 Unit/Ml Vial) 5,000 unit SUBCUT Q8H [facility] Last Admin: 11/24/23 09:02 Dose: 5,000 unit Hydralazine HCl (Hydralazine Hcl 50 Mg Tablet) 100 mg PO TID [facility]; Protocol Furosemide 200 mg/ Sodium (Chloride) 100 mls @ 2.5 mls/hr IVCONT .Q24H [facility] Last Admin: 11/24/23 00:51 Dose: Not Given Ceftriaxone Sodium 1 gm/ (Sodium Chloride) 50 mls @ 100 mls/hr IV Q24H [facility] Last Infusion: 11/24/23 06:35 Dose: Infused Isosorbide Mononitrate (Isosorbide Mononitrate 30 Mg Tab.Er.24h) 30 mg PO DAILY [facility]; Protocol Last Admin: 11/24/23 09:03 Dose: 30 mg Lisinopril (Lisinopril 40 Mg Tablet) 40 mg PO BEDTIME [facility]; Protocol Last Admin: 11/20/23 20:45 Dose: Not Given Methadone HCl (Methadone Hcl 20 Mg/2 Ml Oral.Conc) 20 mg PO DAILY [facility] Sodium Chloride (0.9 % Sodium Chloride Flush 3 Ml Syringe) 3 ml IVFLUSH QSHIFT [facility] Last Admin: 11/24/23 09:01 Dose: 3 ml Allergies Allergies Allergy/AdvReac Type Severity Reaction Status Date / Time Penicillins [PENICILLINS] Allergy Intermediate HIVES Verified 11/20/23 12:49 Assessment & Plan Assessment & Plan (1) Opioid use disorder: Status: Acute Code(s): F11.90 - Opioid use, unspecified, uncomplicated Assessment and Plan: * continue methadone at 20mg daily * recovery collector coordinating outpatient follow up * time of med administration changed to 9am Total time managing care of this patient today _15___ minutes.
[2023-11-24] MEDS: hydrALAZINE HCl 50 MG TABLET 100 MG PO ×2 (16:55→20:43)
[2023-11-24 17:48] LABS: Anion Gap 15 (12-20)
[2023-11-24 18:29] LABS: Blood Urea Nitrogen 13 mg/dL (9-16); Carbon Dioxide 30 mmol/L (22-29); Chloride 98 mmol/L (96-108); Creatinine Clr Calc Pharmacy 120.7; Estimated Glomerular Filt Rate > 60; Glucose Random 86 mg/dL (60-115); Potassium 2.5 mmol/L (3.3-5.1); Sodium 140 mmol/L (135-145)
[2023-11-24] MEDS: Potassium Chloride/H20 10 MEQ/100 ML PIGGYBACK 100 MEQ IV ×2 (19:46→20:44)
[2023-11-24] MEDS: Potassium Chloride ER 20 MEQ TAB.ER.PRT 40 MEQ PO (20:43)
[2023-11-24] MEDS: Furosemide 200 MG in 0.9 % Sodium Chloride 80 ML IVCONT (22:26)
[2023-11-25] VITALS (10 sets, daily range): BP systolic 138–185; BP diastolic 79–100; PULSE 70–89; RESP 18–28; TEMP 36.4–37.3; O2SAT 94–99; BMI 31.3
[2023-11-25] MEDS: Heparin Sodium,Porcine 5,000 UNIT/ML VIAL 5000 UNIT SUBCUT ×3 (03:15→17:12)
[2023-11-25] MEDS: cefTRIAXone sodium 1 GM in 0.9 % Sodium Chloride 50 ML IV (06:16)
[2023-11-25] MEDS: Doxycycline Monohydrate 100 MG CAPSULE PO ×2 (08:33→22:43)
[2023-11-25] MEDS: Isosorbide Mononitrate 30 MG TAB.ER.24H PO (08:33)
[2023-11-25] MEDS: hydrALAZINE HCl 50 MG TABLET 100 MG PO ×3 (08:33→22:43)
[2023-11-25] MEDS: Potassium Chloride ER 20 MEQ TAB.ER.PRT 40 MEQ PO ×2 (08:33→14:40)
[2023-11-25] MEDS: 0.9 % Sodium Chloride Flush 3 ML SYRINGE IVFLUSH ×2 (08:34→17:13)
[2023-11-25 08:38] LABS: Anion Gap 16 (12-20); Blood Urea Nitrogen 11 mg/dL (9-16); Calcium 8.6 mg/dL (8.4-10.2); Carbon Dioxide 29 mmol/L (22-29); Chloride 99 mmol/L (96-108); Creatinine Clr Calc Pharmacy 120.5; Estimated Glomerular Filt Rate > 60; Glucose Random 77 mg/dL (60-115); Magnesium 1.8 mg/dL (1.6-2.6); Potassium 2.7 mmol/L (3.3-5.1); Sodium 141 mmol/L (135-145)
--- NOTE | 2023-11-25 08:48 | P.PNIM_ITS ---
Subjective Subjective Date of Service: 11/25/23 Interval History: seen in f/u for decompensated cardiomyopathy, anasarca Overall swelling is better in the arm, no SOB, K is still low and being replaced he continues to decline to go to rehab Physical Exam 2 Vital Signs: Vital Signs: Last Vital Signs Temp 99.2 F 11/25/23 07:51 Pulse 89 11/25/23 07:51 Resp 20 11/25/23 07:51 BP 168/100 H 11/25/23 08:33 Pulse Ox 97 11/25/23 07:51 O2 Del Method Room Air 11/25/23 07:51 O2 Flow Rate 2 11/25/23 00:00 BMI result Body Mass Index 31.3 General: AO X 3, no acute distress Resp: lungs clear, no dixtress CVS: S1,S2,RRR GI: +BS, NT, no distention Skin: some swelling in the arm --better, no leg edema Neuro: motor grossly intact Psych: appropriate affect Objective Data Active Medications Atorvastatin Calcium (Atorvastatin Calcium 40 Mg Tablet) 40 mg PO BEDTIME [facility] Last Admin: 11/20/23 20:45 Dose: Not Given Documented By: COREY Non-Admin Reason: Patient Condition Contraindication Carvedilol (Carvedilol 25 Mg Tablet) 25 mg PO BIDWM [facility]; Protocol Last Admin: 11/20/23 20:45 Dose: Not Given Documented By: COREY Non-Admin Reason: Patient Condition Contraindication Doxycycline Monohydrate (Doxycycline Monohydrate 100 Mg Capsule) 100 mg PO Q12H [facility] Last Admin: 11/25/23 08:33 Dose: 100 mg Documented By: TYLER Ergocalciferol (Ergocalciferol (Vitamin D2) 1,250 Mcg Capsule) 1,250 mcg PO PATTERSON@0900 [facility] Last Admin: 11/21/23 09:51 Dose: Not Given Documented By: KEYSHA Non-Admin Reason: NPO Furosemide (Furosemide 40 Mg Tablet) 40 mg PO DAILY [facility]; Protocol Heparin Sodium (Porcine) (Heparin Sodium,Porcine 5,000 Unit/Ml Vial) 5,000 unit SUBCUT Q8H [facility] Last Admin: 11/25/23 08:34 Dose: 5,000 unit Documented By: TYLER Hydralazine HCl (Hydralazine Hcl 50 Mg Tablet) 100 mg PO TID [facility]; Protocol Last Admin: 11/25/23 08:33 Dose: 100 mg Documented By: TYLER Furosemide 200 mg/ Sodium (Chloride) 100 mls @ 2.5 mls/hr IVCONT .Q24H [facility] Last Admin: 11/24/23 22:26 Dose: 5 mg/hr, 2.5 mls/hr Documented By: TO Ceftriaxone Sodium 1 gm/ (Sodium Chloride) 50 mls @ 100 mls/hr IV Q24H [facility] Last Infusion: 11/25/23 08:40 Dose: Infused Documented By: TYLER Potassium Chloride (Potassium Chloride/H20) 10 meq in 100 mls @ 100 mls/hr IV Q1H [facility] Stop: 11/25/23 10:44 Isosorbide Mononitrate (Isosorbide Mononitrate 30 Mg Tab.Er.24h) 30 mg PO DAILY [facility]; Protocol Last Admin: 11/25/23 08:33 Dose: 30 mg Documented By: TYLER Lisinopril (Lisinopril 40 Mg Tablet) 40 mg PO BEDTIME [facility]; Protocol Last Admin: 11/20/23 20:45 Dose: Not Given Documented By: COREY Non-Admin Reason: Patient Condition Contraindication Methadone HCl (Methadone Hcl 20 Mg/2 Ml Oral.Conc) 20 mg PO DAILY [facility] Potassium Chloride (Potassium Chloride Er 20 Meq Tab.Er.Prt) 40 meq PO Q6H [facility] Sodium Chloride (0.9 % Sodium Chloride Flush 3 Ml Syringe) 3 ml IVFLUSH QSHIFT [facility] Last Admin: 11/25/23 08:34 Dose: 3 ml Documented By: TYLER Labs 11/23/23 10:34 11/25/23 07:49 Labs: Laboratory Results - last 24 hr 11/24/23 11/25/23 15:29 07:49 Hold Purple Top SEE NOTE Anion Gap 15 16 Estim Creat Clear Calc 120.7 120.5 Estimated GFR > 60 > 60 Random Glucose 86 77 Calcium 8.0 L 8.6 D Magnesium 1.8 Assessment and Plan (1) Cellulitis of right forearm: Status: Acute (2) CHF (congestive heart failure): Status: Acute (3) Anasarca: Status: Acute (4) Ischemic cardiomyopathy: Status: Acute Plan 78 y/o man with PMHx significant for ischemic cardiomyopathy s/p AICD admitted with: Anasarca. Likely secondary to ischemic cardiomyopathy, low albumin. No proteinuria. Overall improved. -Was on Lasix drip from until 11/23. Add PO Lasix 40 daily -Monitor I/O, electrolytes -negative 9 liters total, -cardiology following him -echo EF 25 to 30% Hypokalemia--replace with IV and PO, add low dose aldactone Right forearm and arm cellulitis. Right upper extremity venous ultrasound and CT scan are unremarkable except for edema. No clinical evidence of compartment syndrome. Empiric IV antibiotic therapy with Doxy, now PO. stop after 7 days Lactic acidosis, 4.0. No sepsis/SIRS criteria. Normal pH and bicarb. Acute encephalopathy. Suspecting this is secondary to drug use (urine toxicology is positive for fentanyl, opiates and cocaine). resolved Elevated bilirubin--likely from passive liver congestion from fluid overload, trending down Hyperlipidemia. Continue statin when able. HTN. Continue lisinopril, imdur and hydralazine and Coreg Substance usd disorder--addiction med consult, no withdrawal symptoms--started on methadone Code status: Full DVT prophylaxis: Heparin subcut need for inpatient: management for anasarca treatment with IV Lasix drip and albumin, correction of potassium PT is recommending STR but he's refusing nee Quality Stroke Does the patient have a stroke diagnosis?: No VTE Prior VTE?: No VTE Risk Level:: Medical - moderate - high VTE Device Contraindication: Treatment Not Indicated VTE Drug Contraindication: N/A - Med Ordered
--- NOTE | 2023-11-25 10:08 | MHC.RECOVRN ---
Pts referral has been sent to [facility]. T/w speaking with OTP to attempt to set up telehealth intake.
[2023-11-25] MEDS: methADONE HCl 20 MG/2 ML ORAL.CONC PO (10:18)
[2023-11-25] MEDS: Potassium Chloride/H20 10 MEQ/100 ML PIGGYBACK 100 MEQ IV ×2 (10:19→11:35)
[2023-11-25] MEDS: Spironolactone 25 MG TABLET PO (10:19)
[2023-11-25] MEDS: Furosemide 40 MG TABLET PO (14:41)
[2023-11-25] MEDS: Potassium Chloride Packet 20 MEQ PACKET 40 MEQ PO (23:51)
[2023-11-26] VITALS (10 sets, daily range): BP systolic 115–160; BP diastolic 72–99; PULSE 81–97; RESP 18–22; TEMP 36.2–36.7; O2SAT 95–99
[2023-11-26] MEDS: Albuterol/Iprat 2.5/0.5MG 3 ML AMPUL.NEB INHALE (02:11)
[2023-11-26] MEDS: Heparin Sodium,Porcine 5,000 UNIT/ML VIAL 5000 UNIT SUBCUT ×3 (02:56→16:15)
--- NOTE | 2023-11-26 07:40 | P.CDIM_ITS ---
PROVIDER RESPONSE TEXT: To clarify, the appropriate diagnosis supported by the clinical indicators: Obesity Due to excess calories QUERY TEXT: PHYSICIAN'S DOCUMENTATION REQUEST Date of Query: 11/23/2023 05:12 AM EDT Patient Name: Thad Simpson Admit Date: 11/21/2023 Dear Lopez Gibson, A review of the medical record indicates additional documentation may be needed. Please review below and update the documentation accordingly. Clinical Indicators: Nursing notes Height and Weight: BMI 35.3 124.6kg Obese class II If possible, please provide an associated diagnosis related to the abnormal BMI, such as: Overweight Obesity Due to excess calories Obesity Due to other cause Specify the other cause Other (explain) Clinically unable to determine (explain) Thank you, Aby Chacko, CCS, CDIS Use of terms such as suspected, likely, concern for, or probable (associated with a specific diagnosi s that is being evaluated, monitored, or treated as if it exists) are acceptable and can be coded in the inpatient se tting, when documented at the time of discharge. Please use your independent medical judgment in providing your response. THIS QUERY IS PART OF THE PERMANENT MEDICAL RECORD
[2023-11-26] MEDS: methADONE HCl 20 MG/2 ML ORAL.CONC PO (08:51)
[2023-11-26] MEDS: 0.9 % Sodium Chloride Flush 3 ML SYRINGE IVFLUSH ×3 (08:51→22:40)
[2023-11-26] MEDS: Spironolactone 25 MG TABLET PO (08:52)
[2023-11-26] MEDS: Isosorbide Mononitrate 30 MG TAB.ER.24H PO (08:52)
[2023-11-26] MEDS: hydrALAZINE HCl 50 MG TABLET 100 MG PO ×3 (08:52→22:39)
[2023-11-26] MEDS: Doxycycline Monohydrate 100 MG CAPSULE PO ×2 (08:52→22:40)
[2023-11-26 09:57] LABS: Anion Gap 11 (12-20); Blood Urea Nitrogen 12 mg/dL (9-16); Calcium 8.3 mg/dL (8.4-10.2); Carbon Dioxide 32 mmol/L (22-29); Chloride 101 mmol/L (96-108); Creatinine Clr Calc Pharmacy 109.4; Estimated Glomerular Filt Rate > 60; Glucose Random 89 mg/dL (60-115); Sodium 141 mmol/L (135-145)
--- NOTE | 2023-11-26 10:25 | MHC.CM.PN ---
Per rounds, pt. is now agreeable to STR, may be ready for DC later today after checking labs, referrals out.
--- NOTE | 2023-11-26 11:36 | HO.PM.IMPN ---
Subjective Subjective Date of Service: 11/26/23 Interval History: seen in f/u for decompensated cardiomyopathy, anasarca swelling is much better in the arms, K is 3. refused lab draw this morning Physical Exam Vital Signs: Vital Signs: Last Vital Signs Temp 97.6 F 11/26/23 07:33 Pulse 86 11/26/23 07:33 Resp 18 11/26/23 07:33 BP 138/87 11/26/23 07:33 Pulse Ox 97 11/26/23 07:33 O2 Del Method Room Air 11/26/23 07:33 O2 Flow Rate 2 11/25/23 00:00 BMI result Body Mass Index 31.3 General: AO X 3, no acute distress Resp: lungs clear, no dixtress CVS: S1,S2,RRR GI: +BS, NT, no distention Skin: some swelling in the arm --better, no leg edema Neuro: motor grossly intact Psych: appropriate affect Objective Data Active Medications Albuterol/Ipratropium (Albuterol/Iprat 2.5/0.5mg 3 Ml Ampul.Neb) 3 ml INHALE Q4H PRN PRN Reason: Wheezing Last Admin: 11/26/23 02:11 Dose: 3 ml Documented By: ANTONIA Atorvastatin Calcium (Atorvastatin Calcium 40 Mg Tablet) 40 mg PO BEDTIME [facility] Last Admin: 11/20/23 20:45 Dose: Not Given Documented By: COREY Non-Admin Reason: Patient Condition Contraindication Carvedilol (Carvedilol 25 Mg Tablet) 25 mg PO BIDWM [facility]; Protocol Last Admin: 11/20/23 20:45 Dose: Not Given Documented By: COREY Non-Admin Reason: Patient Condition Contraindication Doxycycline Monohydrate (Doxycycline Monohydrate 100 Mg Capsule) 100 mg PO Q12H [facility] Last Admin: 11/26/23 08:52 Dose: 100 mg Documented By: LIBRA Ergocalciferol (Ergocalciferol (Vitamin D2) 1,250 Mcg Capsule) 1,250 mcg PO PATTERSON@0900 [facility] Last Admin: 11/21/23 09:51 Dose: Not Given Documented By: KEYSHA Non-Admin Reason: NPO Furosemide (Furosemide 40 Mg Tablet) 40 mg PO DAILY [facility]; Protocol Last Admin: 05/24/24 10:06 Dose: Not Given Documented By: LIBRA Non-Admin Reason: low potassium Heparin Sodium (Porcine) (Heparin Sodium,Porcine 5,000 Unit/Ml Vial) 5,000 unit SUBCUT Q8H [facility] Last Admin: 11/26/23 08:51 Dose: 5,000 unit Documented By: LIBRA Hydralazine HCl (Hydralazine Hcl 50 Mg Tablet) 100 mg PO TID [facility]; Protocol Last Admin: 11/26/23 08:52 Dose: 100 mg Documented By: LIBRA Isosorbide Mononitrate (Isosorbide Mononitrate 30 Mg Tab.Er.24h) 30 mg PO DAILY [facility]; Protocol Last Admin: 11/26/23 08:52 Dose: 30 mg Documented By: LIBRA Lisinopril (Lisinopril 40 Mg Tablet) 40 mg PO BEDTIME [facility]; Protocol Last Admin: 11/20/23 20:45 Dose: Not Given Documented By: COREY Non-Admin Reason: Patient Condition Contraindication Methadone HCl (Methadone Hcl 20 Mg/2 Ml Oral.Conc) 20 mg PO DAILY [facility] Last Admin: 11/26/23 08:51 Dose: 20 mg Documented By: LIBRA Potassium Chloride (Potassium Chloride Er 20 Meq Tab.Er.Prt) 40 meq PO Q6H [facility] Stop: 11/26/23 16:31 Sodium Chloride (0.9 % Sodium Chloride Flush 3 Ml Syringe) 3 ml IVFLUSH QSHIFT [facility] Last Admin: 11/26/23 08:51 Dose: 3 ml Documented By: LIBRA Spironolactone (Spironolactone 25 Mg Tablet) 25 mg PO DAILY [facility]; Protocol Last Admin: 11/26/23 08:52 Dose: 25 mg Documented By: LIBRA Labs 11/23/23 10:34 11/26/23 08:51 Labs: Laboratory Results - last 24 hr 11/26/23 08:51 Hold Purple Top SEE NOTE Anion Gap 11 L Estim Creat Clear Calc 109.4 Estimated GFR > 60 Random Glucose 89 Calcium 8.3 L Microbiology Microbiology Results: Microbiology 11/20/23 14:40 Blood Culture - Final Blood - Venous No growth after 5 days. 11/20/23 13:47 Blood Culture - Final Blood - Venous No growth after 5 days. Assessment and Plan (1) Cellulitis of right forearm: Status: Acute (2) CHF (congestive heart failure): Status: Acute (3) Anasarca: Status: Acute (4) Ischemic cardiomyopathy: Status: Acute Plan 78 y/o man with PMHx significant for ischemic cardiomyopathy s/p AICD admitted with: Anasarca. Likely secondary to ischemic cardiomyopathy, low albumin. No proteinuria. Overall improved. -Was on Lasix drip from until 11/23. continue PO Lasix 40 daily -Monitor I/O, electrolytes -negative 9 liters total, -cardiology following him -echo EF 25 to 30% Hypokalemia--replace with IV and PO, continue Aldactone, additioonal oral replacement today, check mag Right forearm and arm cellulitis. Right upper extremity venous ultrasound and CT scan are unremarkable except for edema. No clinical evidence of compartment syndrome. Empiric IV antibiotic therapy with Doxy and Ceftriaxone, now PO doxy only, stop after 7 days Lactic acidosis, 4.0. No sepsis/SIRS criteria. Normal pH and bicarb. metabolic alkalosis--d/t Lasix, monitor, if higher give diamox Acute encephalopathy. Suspecting this is secondary to drug use (urine toxicology is positive for fentanyl, opiates and cocaine). resolved Elevated bilirubin--likely from passive liver congestion from fluid overload, trended down Hyperlipidemia. Continue statin when able. HTN. Continue lisinopril, imdur and hydralazine and Coreg --BP much better Substance usd disorder--addiction med consult, no withdrawal symptoms--Continue methadone Code status: Full DVT prophylaxis: Heparin subcut need for inpatient: management for anasarca treatment with IV Lasix drip and albumin, correction of potassium PT : now agreable to STR nee Quality Stroke Does the patient have a stroke diagnosis?: No VTE Prior VTE?: No VTE Risk Level:: Medical - moderate - high VTE Device Contraindication: Treatment Not Indicated VTE Drug Contraindication: N/A - Med Ordered
[2023-11-26 12:10] LABS: Alanine Aminotransferase 10 U/L (0-40); Albumin Level 2.9 g/dL (3.5-5.0); Alkaline Phosphatase 88 U/L (39-117); Aspartate Amino Transferase 21 U/L (5-37); Bilirubin Direct 1.4 mg/dL (0.0-0.5); Bilirubin Total 2.4 mg/dL (0.0-1.0); Magnesium 1.8 mg/dL (1.6-2.6)
[2023-11-26] MEDS: Potassium Chloride ER 20 MEQ TAB.ER.PRT 40 MEQ PO ×2 (12:49→16:15)
[2023-11-27 03:41] VITALS: BP 134/76; PULSE 89; RESP 20; TEMP 36.7; O2SAT 99
[2023-11-27 07:44] VITALS: BP 144/94; PULSE 94; RESP 18; TEMP 37.2; O2SAT 100
[2023-11-27] MEDS: Doxycycline Monohydrate 100 MG CAPSULE PO ×2 (08:55→21:16)
[2023-11-27] MEDS: Isosorbide Mononitrate 30 MG TAB.ER.24H PO (08:55)
[2023-11-27] MEDS: methADONE HCl 20 MG/2 ML ORAL.CONC PO (08:55)
[2023-11-27] MEDS: Furosemide 40 MG TABLET PO (08:56)
[2023-11-27] MEDS: Spironolactone 25 MG TABLET PO (08:56)
[2023-11-27] MEDS: Heparin Sodium,Porcine 5,000 UNIT/ML VIAL 5000 UNIT SUBCUT ×2 (08:57→16:11)
[2023-11-27] MEDS: hydrALAZINE HCl 50 MG TABLET 100 MG PO ×3 (08:57→21:16)
[2023-11-27] MEDS: 0.9 % Sodium Chloride Flush 3 ML SYRINGE IVFLUSH ×3 (08:57→21:16)
[2023-11-27 09:14] LABS: Anion Gap 12 (12-20); Blood Urea Nitrogen 12 mg/dL (9-16); Calcium 8.4 mg/dL (8.4-10.2); Carbon Dioxide 30 mmol/L (22-29); Chloride 103 mmol/L (96-108); Creatinine Clr Calc Pharmacy 113.9; Estimated Glomerular Filt Rate > 60; Glucose Random 80 mg/dL (60-115); Potassium 3.4 mmol/L (3.3-5.1); Sodium 142 mmol/L (135-145)
[2023-11-27 11:14] VITALS: BP 165/89; PULSE 70; RESP 18; TEMP 37.4; O2SAT 97
--- NOTE | 2023-11-27 13:11 | P.PNIM_ITS ---
Subjective Subjective Date of Service: 11/27/23 Interval History: seen in f/u for decompensated cardiomyopathy, anasarca Potassium is normal, more swelling in right arm Physical Exam 2 Vital Signs: Vital Signs: Last Vital Signs Temp 99.4 F 11/27/23 11:14 Pulse 70 11/27/23 11:14 Resp 18 11/27/23 11:14 BP 165/89 H 11/27/23 11:14 Pulse Ox 97 11/27/23 11:14 O2 Del Method Room Air 11/27/23 11:14 O2 Flow Rate 2 11/25/23 00:00 BMI result Body Mass Index 31.3 General: AO X 3, no acute distress Resp: lungs clear, no dixtress CVS: S1,S2,RRR GI: +BS, NT, no distention Skin: some swelling in the arm--particulary the right Neuro: motor grossly intact Psych: appropriate affect Objective Data Active Medications Albuterol/Ipratropium (Albuterol/Iprat 2.5/0.5mg 3 Ml Ampul.Neb) 3 ml INHALE Q4H PRN PRN Reason: Wheezing Last Admin: 11/26/23 02:11 Dose: 3 ml Documented By: ANTONIA Atorvastatin Calcium (Atorvastatin Calcium 40 Mg Tablet) [address] [facility] Last Admin: 11/20/23 20:45 Dose: Not Given Documented By: COREY Non-Admin Reason: Patient Condition Contraindication Carvedilol (Carvedilol 25 Mg Tablet) [address] [facility]; Protocol Last Admin: 11/20/23 20:45 Dose: Not Given Documented By: COREY Non-Admin Reason: Patient Condition Contraindication Doxycycline Monohydrate (Doxycycline Monohydrate 100 Mg Capsule) [address] [facility] Last Admin: 11/27/23 08:55 Dose: 100 mg Documented By: RICHARDSON Ergocalciferol (Ergocalciferol (Vitamin D2) 1,250 Mcg Capsule) 1,250 mcg PO PATTERSON@0900 [facility] Last Admin: 11/21/23 09:51 Dose: Not Given Documented By: KEYSHA Non-Admin Reason: NPO Furosemide (Furosemide 40 Mg Tablet) [address] [facility]; Protocol Last Admin: 11/27/23 08:56 Dose: 40 mg Documented By: RICHARDSON Heparin Sodium (Porcine) (Heparin Sodium,Porcine 5,000 Unit/Ml Vial) 5,[address] [facility] Last Admin: 11/27/23 08:57 Dose: 5,000 unit Documented By: RICHARDSON Hydralazine HCl (Hydralazine Hcl 50 Mg Tablet) [address] [facility]; Protocol Last Admin: 11/27/23 08:57 Dose: 100 mg Documented By: RICHARDSON Isosorbide Mononitrate (Isosorbide Mononitrate 30 Mg Tab.Er.24h) [address] [facility]; Protocol Last Admin: 11/27/23 08:55 Dose: 30 mg Documented By: RICHARDSON Lisinopril (Lisinopril 40 Mg Tablet) [address] [facility]; Protocol Last Admin: 11/20/23 20:45 Dose: Not Given Documented By: COREY Non-Admin Reason: Patient Condition Contraindication Methadone HCl (Methadone Hcl 20 Mg/2 Ml Oral.Conc) [address] [facility] Last Admin: 11/27/23 08:55 Dose: 20 mg Documented By: RICHARDSON Sodium Chloride (0.9 % Sodium Chloride Flush 3 Ml Syringe) [address] [facility] Last Admin: 11/27/23 08:57 Dose: 3 ml Documented By: RICHARDSON Spironolactone (Spironolactone 25 Mg Tablet) [address] [facility]; Protocol Last Admin: 11/27/23 08:56 Dose: 25 mg Documented By: RICHARDSON Labs 11/23/23 10:34 11/27/23 08:00 Labs: Laboratory Results - last 24 hr 11/27/23 08:00 Anion Gap 12 Estim Creat Clear Calc 113.9 Estimated GFR > 60 Random Glucose 80 Calcium 8.4 Assessment and Plan (1) Opioid use disorder: Status: Acute (2) Cellulitis of right forearm: Status: Acute (3) CHF (congestive heart failure): Status: Acute (4) Anasarca: Status: Acute Plan 78 y/o man with PMHx significant for ischemic cardiomyopathy s/p AICD admitted with: Anasarca. Likely secondary to ischemic cardiomyopathy, low albumin. No proteinuria. Overall improved. -Was on Lasix drip from until 11/23. continue PO Lasix 40 daily -Monitor I/O, electrolytes -negative 12 liters total, -cardiology following him -echo EF 25 to 30% Hypokalemia--replace with IV and PO, continue Aldactone, additioonal oral replacement today. K and mag normal Right forearm and arm cellulitis. Right upper extremity venous ultrasound and CT scan are unremarkable except for edema. No clinical evidence of compartment syndrome. Empiric IV antibiotic therapy with Doxy and Ceftriaxone, now PO doxy only, stop after 7 days, DC Lactic acidosis, 4.0. No sepsis/SIRS criteria. Normal pH and bicarb. metabolic alkalosis--d/t Lasix, monitor, if higher give diamox Acute encephalopathy. Suspecting this is secondary to drug use (urine toxicology is positive for fentanyl, opiates and cocaine). resolved Elevated bilirubin--likely from passive liver congestion from fluid overload, trended down, lfts nl Hyperlipidemia. resume statin HTN. Continue lisinopril, imdur and hydralazine and Coreg --BP is now controlled. Substance usd disorder--addiction med consult, no withdrawal symptoms--Continue methadone Code status: Full DVT prophylaxis: Heparin subcut need for inpatient: management for anasarca treatment with IV Lasix drip and albumin, correction of potassium PT : now agreable to STR Quality Stroke Does the patient have a stroke diagnosis?: No VTE Prior VTE?: No VTE Risk Level:: Medical - moderate - high VTE Device Contraindication: Treatment Not Indicated VTE Drug Contraindication: N/A - Med Ordered
[2023-11-27 15:59] VITALS: BP 162/86; PULSE 80; RESP 18; TEMP 36.6; O2SAT 99
[2023-11-27 20:00] VITALS: BP 139/79; PULSE 80; RESP 20; TEMP 36.9; O2SAT 97
[2023-11-27 21:16] VITALS: BP 139/79
[2023-11-28] VITALS (7 sets, daily range): BP systolic 128–160; BP diastolic 59–88; PULSE 65–87; RESP 16–20; TEMP 36.7–37.3; O2SAT 96–98
[2023-11-28] MEDS: Heparin Sodium,Porcine 5,000 UNIT/ML VIAL 5000 UNIT SUBCUT ×3 (03:17→15:21)
[2023-11-28] MEDS: Isosorbide Mononitrate 30 MG TAB.ER.24H PO (09:41)
[2023-11-28] MEDS: Doxycycline Monohydrate 100 MG CAPSULE PO ×2 (09:42→21:14)
[2023-11-28] MEDS: Spironolactone 25 MG TABLET PO (09:42)
[2023-11-28] MEDS: Furosemide 40 MG TABLET PO (09:42)
[2023-11-28] MEDS: methADONE HCl 20 MG/2 ML ORAL.CONC PO (09:42)
[2023-11-28] MEDS: hydrALAZINE HCl 50 MG TABLET 100 MG PO ×3 (09:42→21:14)
[2023-11-28] MEDS: Ergocalciferol (Vitamin D2) 1,250 MCG CAPSULE 1250 MCG PO (09:55)
[2023-11-28] MEDS: 0.9 % Sodium Chloride Flush 3 ML SYRINGE IVFLUSH ×3 (09:55→21:14)
--- NOTE | 2023-11-28 11:11 | MHC.RECOVRN ---
Met with pt to follow up and check in. RN informed t/w pt requesting increase in methadone due to pain at night, around 9 pm. Pt reports abdominal pain at night, however, feels okay currently. Pt would like methadone increase. Pt denies other withdrawal symptoms. Reports he is sleeping and eating well. Does express desire to go home. Pt denies other questions or concerns for t/w. Kaye Stevens APRN, notified.
--- NOTE | 2023-11-28 12:27 | P.PNIM_ITS ---
Subjective Subjective Date of Service: 11/28/23 Interval History: seen in f/u for decompensated cardiomyopathy, anasarca no new issues, feels fine Physical Exam 2 Vital Signs: Vital Signs: Last Vital Signs Temp 98.2 F 11/28/23 08:00 Pulse 82 11/28/23 08:00 Resp 18 11/28/23 08:00 BP 145/82 H 11/28/23 08:00 Pulse Ox 97 11/28/23 08:00 O2 Del Method Room Air 11/28/23 08:00 O2 Flow Rate 2 11/25/23 00:00 BMI result Body Mass Index 31.3 Objective Data Active Medications Albuterol/Ipratropium (Albuterol/Iprat 2.5/0.5mg 3 Ml Ampul.Neb) 3 ml INHALE Q4H PRN PRN Reason: Wheezing Last Admin: 11/26/23 02:11 Dose: 3 ml Documented By: ANTONIA Atorvastatin Calcium (Atorvastatin Calcium 40 Mg Tablet) 40 mg PO BEDTIME [facility] Last Admin: 11/20/23 20:45 Dose: Not Given Documented By: COREY Non-Admin Reason: Patient Condition Contraindication Carvedilol (Carvedilol 25 Mg Tablet) 25 mg PO BIDWM [facility]; Protocol Last Admin: 11/20/23 20:45 Dose: Not Given Documented By: COREY Non-Admin Reason: Patient Condition Contraindication Doxycycline Monohydrate (Doxycycline Monohydrate 100 Mg Capsule) 100 mg PO Q12H [facility] Last Admin: 11/28/23 09:42 Dose: 100 mg Documented By: RICHARDSON Ergocalciferol (Ergocalciferol (Vitamin D2) 1,250 Mcg Capsule) 1,250 mcg PO Shelton@1000 [facility] Last Admin: 11/28/23 09:55 Dose: 1,250 mcg Documented By: RICHARDSON Furosemide (Furosemide 40 Mg Tablet) 40 mg PO DAILY [facility]; Protocol Last Admin: 11/28/23 09:42 Dose: 40 mg Documented By: RICHARDSON Heparin Sodium (Porcine) (Heparin Sodium,Porcine 5,000 Unit/Ml Vial) 5,000 unit SUBCUT Q8H [facility] Last Admin: 11/28/23 09:42 Dose: 5,000 unit Documented By: RICHARDSON Hydralazine HCl (Hydralazine Hcl 50 Mg Tablet) 100 mg PO TID [facility]; Protocol Last Admin: 11/28/23 09:42 Dose: 100 mg Documented By: RICHARDSON Isosorbide Mononitrate (Isosorbide Mononitrate 30 Mg Tab.Er.24h) 30 mg PO DAILY [facility]; Protocol Last Admin: 11/28/23 09:41 Dose: 30 mg Documented By: RICHARDSON Lisinopril (Lisinopril 40 Mg Tablet) 40 mg PO BEDTIME [facility]; Protocol Last Admin: 11/20/23 20:45 Dose: Not Given Documented By: COREY Non-Admin Reason: Patient Condition Contraindication Methadone HCl (Methadone Hcl 20 Mg/2 Ml Oral.Conc) 20 mg PO DAILY [facility] Last Admin: 11/28/23 09:42 Dose: 20 mg Documented By: RICHARDSON Sodium Chloride (0.9 % Sodium Chloride Flush 3 Ml Syringe) 3 ml IVFLUSH QSHIFT [facility] Last Admin: 11/28/23 09:55 Dose: 3 ml Documented By: RICHARDSON Spironolactone (Spironolactone 25 Mg Tablet) 25 mg PO DAILY [facility]; Protocol Last Admin: 11/28/23 09:42 Dose: 25 mg Documented By: RICHARDSON Labs 11/23/23 10:34 11/27/23 08:00 Assessment and Plan (1) CHF (congestive heart failure): Status: Acute (2) Anasarca: Status: Acute (3) Ischemic cardiomyopathy: Status: Acute (4) Cellulitis of right forearm: Status: Acute (5) Opioid use disorder: Status: Acute Plan 78 y/o man with PMHx significant for ischemic cardiomyopathy s/p AICD admitted with: Anasarca. Likely secondary to ischemic cardiomyopathy, low albumin. No proteinuria. Overall improved. -Was on Lasix drip from until 11/23. continue PO Lasix 40 daily -Monitor I/O, electrolytes -negative 13 liters total, -cardiology following him -echo EF 25 to 30% Hypokalemia--replace with IV and PO, continue Aldactone, additioonal oral replacement today. K and mag normal Right forearm and arm cellulitis. Right upper extremity venous ultrasound and CT scan are unremarkable except for edema. No clinical evidence of compartment syndrome. Empiric IV antibiotic therapy with Doxy and Ceftriaxone, now PO doxy only, stop after 7 days. US of the right UE negative for DVT Lactic acidosis, 4.0. No sepsis/SIRS criteria. Normal pH and bicarb. metabolic alkalosis--d/t Lasix, monitor, if higher give diamox Acute encephalopathy. Suspecting this is secondary to drug use (urine toxicology is positive for fentanyl, opiates and cocaine). resolved Elevated bilirubin--likely from passive liver congestion from fluid overload, trended down, lfts nl Hyperlipidemia. resume statin HTN. Continue lisinopril, imdur and hydralazine and Coreg --BP is now controlled. Substance usd disorder--addiction med consult, no withdrawal symptoms--Continue methadone Code status: Full DVT prophylaxis: Heparin subcut need for inpatient: management for anasarca treatment with IV Lasix drip and albumin, correction of potassium PT : now agreable to STR Quality Stroke Does the patient have a stroke diagnosis?: No VTE Prior VTE?: No VTE Risk Level:: Medical - moderate - high VTE Device Contraindication: Treatment Not Indicated VTE Drug Contraindication: N/A - Med Ordered
[2023-11-28 18:48] LABS: Anion Gap 13 (12-20); Carbon Dioxide 29 mmol/L (22-29); Chloride 102 mmol/L (96-108); Potassium 3.1 mmol/L (3.3-5.1); Sodium 141 mmol/L (135-145)
[2023-11-29] MEDS: Heparin Sodium,Porcine 5,000 UNIT/ML VIAL 5000 UNIT SUBCUT ×3 (00:11→15:49)
[2023-11-29] MEDS: Potassium Chloride ER 20 MEQ TAB.ER.PRT 40 MEQ PO (00:12)
[2023-11-29] MEDS: 0.9 % Sodium Chloride Flush 3 ML SYRINGE IVFLUSH ×3 (00:13→21:00)
[2023-11-29 04:00] VITALS: BP 143/73; PULSE 68; RESP 20; TEMP 36.8; O2SAT 96
[2023-11-29 07:22] VITALS: BP 149/91; PULSE 97; RESP 20; TEMP 36.8; O2SAT 97
[2023-11-29 08:36] LABS: Anion Gap 14 (12-20); Blood Urea Nitrogen 15 mg/dL (9-16); Calcium 8.1 mg/dL (8.4-10.2); Carbon Dioxide 25 mmol/L (22-29); Chloride 102 mmol/L (96-108); Creatinine Clr Calc Pharmacy 112.3; Estimated Glomerular Filt Rate > 60; Glucose Random 73 mg/dL (60-115); Potassium 3.2 mmol/L (3.3-5.1); Sodium 138 mmol/L (135-145)
[2023-11-29] MEDS: hydrALAZINE HCl 50 MG TABLET 100 MG PO ×3 (08:38→20:59)
[2023-11-29] MEDS: Spironolactone 25 MG TABLET PO ×2 (08:38→13:19)
[2023-11-29] MEDS: Isosorbide Mononitrate 30 MG TAB.ER.24H PO (08:38)
[2023-11-29] MEDS: Furosemide 40 MG TABLET PO (08:39)
[2023-11-29] MEDS: Doxycycline Monohydrate 100 MG CAPSULE PO ×2 (08:39→20:59)
[2023-11-29] MEDS: methADONE HCl 20 MG/2 ML ORAL.CONC 25 MG PO (08:39)
--- NOTE | 2023-11-29 11:58 | HO.PM.IMPN ---
Subjective Subjective Date of Service: 11/29/23 Interval History: seen in f/u for decompensated cardiomyopathy, anasarca no new issues, feels fine and wants to go home Physical Exam Vital Signs: Vital Signs: Last Vital Signs Temp 98.2 F 11/29/23 07:22 Pulse 97 11/29/23 07:22 Resp 20 11/29/23 07:22 BP 149/91 H 11/29/23 07:22 Pulse Ox 97 11/29/23 07:22 O2 Del Method Room Air 11/29/23 07:22 O2 Flow Rate 2 11/25/23 00:00 BMI result Body Mass Index 31.3 General: AO X 3, no acute distress Resp: lungs clear, no dixtress CVS: S1,S2,RRR GI: +BS, NT, no distention Skin: some swelling in the arm--particulary the right Neuro: motor grossly intact Psych: appropriate affect Objective Data Active Medications Albuterol/Ipratropium (Albuterol/Iprat 2.5/0.5mg 3 Ml Ampul.Neb) 3 ml INHALE Q4H PRN PRN Reason: Wheezing Last Admin: 11/26/23 02:11 Dose: 3 ml Documented By: ANTONIA Atorvastatin Calcium (Atorvastatin Calcium 40 Mg Tablet) 40 mg PO BEDTIME [facility] Last Admin: 11/20/23 20:45 Dose: Not Given Documented By: COREY Non-Admin Reason: Patient Condition Contraindication Carvedilol (Carvedilol 25 Mg Tablet) 25 mg PO BIDWM [facility]; Protocol Last Admin: 11/20/23 20:45 Dose: Not Given Documented By: COREY Non-Admin Reason: Patient Condition Contraindication Doxycycline Monohydrate (Doxycycline Monohydrate 100 Mg Capsule) 100 mg PO Q12H [facility] Last Admin: 11/29/23 08:39 Dose: 100 mg Documented By: CAPO Ergocalciferol (Ergocalciferol (Vitamin D2) 1,250 Mcg Capsule) 1,250 mcg PO Shelton@1000 [facility] Last Admin: 11/28/23 09:55 Dose: 1,250 mcg Documented By: RICHARDSON Furosemide (Furosemide 40 Mg Tablet) 40 mg PO DAILY [facility]; Protocol Last Admin: 11/29/23 08:39 Dose: 40 mg Documented By: CAPO Heparin Sodium (Porcine) (Heparin Sodium,Porcine 5,000 Unit/Ml Vial) 5,000 unit SUBCUT Q8H [facility] Last Admin: 11/29/23 08:39 Dose: 5,000 unit Documented By: CAPO Hydralazine HCl (Hydralazine Hcl 50 Mg Tablet) 100 mg PO TID [facility]; Protocol Last Admin: 11/29/23 08:38 Dose: 100 mg Documented By: CAPO Isosorbide Mononitrate (Isosorbide Mononitrate 30 Mg Tab.Er.24h) 30 mg PO DAILY [facility]; Protocol Last Admin: 11/29/23 08:38 Dose: 30 mg Documented By: CAPO Lisinopril (Lisinopril 40 Mg Tablet) 40 mg PO BEDTIME [facility]; Protocol Last Admin: 11/20/23 20:45 Dose: Not Given Documented By: COREY Non-Admin Reason: Patient Condition Contraindication Methadone HCl (Methadone Hcl 20 Mg/2 Ml Oral.Conc) 25 mg PO DAILY [facility] Last Admin: 11/29/23 08:39 Dose: 25 mg Documented By: CAPO Sodium Chloride (0.9 % Sodium Chloride Flush 3 Ml Syringe) 3 ml IVFLUSH QSHIFT [facility] Last Admin: 11/29/23 00:13 Dose: 3 ml Documented By: JASEN Spironolactone (Spironolactone 25 Mg Tablet) 25 mg PO DAILY [facility]; Protocol Last Admin: 11/29/23 08:38 Dose: 25 mg Documented By: CAPO Labs 11/23/23 10:34 11/29/23 07:48 Labs: Laboratory Results - last 24 hr 11/28/23 11/29/23 18:20 07:48 Hold Purple Top SEE NOTE Anion Gap 13 14 Estim Creat Clear Calc 112.3 Estimated GFR > 60 Random Glucose 73 Calcium 8.1 L Assessment and Plan (1) CHF (congestive heart failure): Status: Acute (2) Anasarca: Status: Acute (3) Ischemic cardiomyopathy: Status: Acute (4) Cellulitis of right forearm: Status: Acute (5) Opioid use disorder: Status: Acute Plan 78 y/o man with PMHx significant for ischemic cardiomyopathy s/p AICD admitted with: Anasarca. Likely secondary to ischemic cardiomyopathy, low albumin. No proteinuria. Overall improved. -Was on Lasix drip from until 11/23. continue PO Lasix 40 daily -Monitor I/O, electrolytes -negative 13 liters total, -cardiology following him -echo EF 25 to 30% Hypokalemia--replace with IV and PO, continue Aldactone at 50 mg daily, replace orally PRN Right forearm and arm cellulitis. Right upper extremity venous ultrasound and CT scan are unremarkable except for edema. No clinical evidence of compartment syndrome. Empiric IV antibiotic therapy with Doxy and Ceftriaxone, now PO doxy only, stop after 7 days. US of the right UE negative for DVT Lactic acidosis, 4.0. No sepsis/SIRS criteria. Normal pH and bicarb. metabolic alkalosis--d/t Lasix, monitor, if higher give diamox Acute encephalopathy. Suspecting this is secondary to drug use (urine toxicology is positive for fentanyl, opiates and cocaine). resolved Elevated bilirubin--likely from passive liver congestion from fluid overload, trended down, lfts nl Hyperlipidemia. resume statin HTN. Continue lisinopril, imdur and hydralazine and Coreg --BP is now controlled. Substance usd disorder--addiction med consult, no withdrawal symptoms--Continue methadone Code status: Full DVT prophylaxis: Heparin subcut need for inpatient: management for anasarca treatment with IV Lasix drip and albumin, correction of potassium PT : now agreable to STR, he is getting frurstrated about being here, reconsult PT to reassess about possibly going home with vNA Quality Stroke Does the patient have a stroke diagnosis?: No VTE Prior VTE?: No VTE Risk Level:: Medical - moderate - high VTE Device Contraindication: Treatment Not Indicated VTE Drug Contraindication: N/A - Med Ordered
[2023-11-29 12:00] VITALS: BP 136/68; PULSE 89; RESP 20; TEMP 36.7; O2SAT 97
--- NOTE | 2023-11-29 15:22 | MHC.CM.PN ---
PT is now recommending pt go home with services, [facility] referral placed in [facility].
[2023-11-29 15:23] VITALS: BP 171/85; PULSE 87; RESP 20; TEMP 36.9; O2SAT 96
[2023-11-29 16:28] LABS: Anion Gap 12 (12-20); Carbon Dioxide 27 mmol/L (22-29); Chloride 103 mmol/L (96-108); Potassium 3.3 mmol/L (3.3-5.1); Sodium 139 mmol/L (135-145)
[2023-11-29 20:00] VITALS: BP 141/84; PULSE 85; RESP 20; TEMP 36.8; O2SAT 98
[2023-11-29 20:59] VITALS: BP 141/84
[2023-11-29] MEDS: lisinopriL 10 MG TABLET PO (20:59)
[2023-11-29] MEDS: Atorvastatin Calcium 40 MG TABLET PO (21:01)
[2023-11-30] VITALS: PULSE 82; RESP 19; TEMP 36.7; O2SAT 99
[2023-11-30 04:00] VITALS: PULSE 85; RESP 20; TEMP 36.8; O2SAT 98
[2023-11-30 07:12] VITALS: BP 144/87; PULSE 98; RESP 17; TEMP 36.3; O2SAT 97
[2023-11-30] MEDS: methADONE HCl 20 MG/2 ML ORAL.CONC 25 MG PO (09:09)
[2023-11-30] MEDS: Heparin Sodium,Porcine 5,000 UNIT/ML VIAL 5000 UNIT SUBCUT (09:09)
[2023-11-30] MEDS: 0.9 % Sodium Chloride Flush 3 ML SYRINGE IVFLUSH (09:10)
[2023-11-30] MEDS: Doxycycline Monohydrate 100 MG CAPSULE PO (09:10)
[2023-11-30] MEDS: hydrALAZINE HCl 50 MG TABLET 100 MG PO ×2 (09:10→17:05)
[2023-11-30] MEDS: Furosemide 40 MG TABLET PO (09:10)
[2023-11-30] MEDS: Spironolactone 25 MG TABLET 50 MG PO (09:10)
[2023-11-30] MEDS: Isosorbide Mononitrate 30 MG TAB.ER.24H PO (09:10)
[2023-11-30 11:09] VITALS: BP 140/72; PULSE 73; RESP 18; TEMP 36.6; O2SAT 100
--- NOTE | 2023-11-30 12:39 | P.DS_ITS ---
DS: Providers Provider Date of Service: 11/30/23 Date of admission: 11/20/23 22:55 Primary care physician: Verna Caraballo MD Consults: 11/21/23 09:31 Addiction Medicine Routine Consulting Provider: Addiction Covering Reason for consultation: substance abuse Has provider been notified: No 11/21/23 12:46 Consult to Cardiology Routine Consulting Provider: [facility] Reason for consultation: cardiomyopathy, anasarca Has provider been notified: Yes DS: Diagnosis Discharge Diagnosis (1) CHF (congestive heart failure): Status: Acute (2) Anasarca: Status: Acute (3) Ischemic cardiomyopathy: Status: Acute (4) Cellulitis of right forearm: Status: Acute (5) Opioid use disorder: Status: Acute DS: Summary Hospital Course Hospital Course: admission hpi Thad Brandt is a 78 years old man with past medical history significant for ischemic cardiomyopathy s/p AICD, essential hypertension and hyperlipidemia was brought to the emergency department after PD performed welln ess check per neighbor request. Unfortunately patient is a very vague historian. He does not know his past medical history and does not recall the names of his home medications. He just told me that he feels weak and has right forearm/hand pain. He was unable to tell me for how long he has been having right hand pain. Patient was also noted to be quite swollen but he does not know for how long. Patient mentioned that he has not heroin. Denies IV drug use. In the ED, he was found to have stable vital signs. Last BP is 171/90. Blood workup showed no leukocytosis. Hemoglobin and platelets are normal. There is leukocytosis 4.0 x 2. INR is 1.9. Venous blood gas showed no CO2 retention. TSH is normal. GFR is above 60. Bilirubin is 3.0 and alk-phos is 120. Transaminases are normal. BNP is markedly elevated at 2912. UA showed no proteinuria. Albumin is no, 3.2. Right upper extremity venous you have showed no evidence of DVT. CXR showed clear lungs and cardiac silhouette is mildly enlarged. Head CT scan is negative. Right forearm CT scan with contrast showed extensive diffuse circumferential soft tissue edema involving the entirety of the visualized side arm. There are no focal tissue or intramuscular fluid collection to suggest abscess. Short segment of the ulnar and radial artery with diminutive opacification, possible artifact; otherwise elbow arteries are p atent to the hand (clinical correlation for compartment syndrome will be helpful). ED tx: Furosemide 60 mg IV, NS 1 L bolus, vancomycin 2 g IV, Zosyn 4.5 mg IV hospital course: He presented with total body fluid overload and found to have anasarca and heart ailure, and cellulitis of the right arm likely, and initially encephalopathic likely from drug use. Anasarca/exacerbation of HFrEF with marked fluid overload. He was initially trated with IV Lasix drip and later transitioned to oral Lasix. Additional med management iclude Aldactone, Lisinipril, hydralazine, Imdur, Coreg. He has diuressed negative 15 liters. He was seen in consultation by cardiology . An echocardiogram showed an EF of 25 to 30%. Hypokalemia related to diuresis--This is likely realated to Lasix, potassium has been replaced and aldactone added to help retain potassium. Right forearm and arm cellulitis. Right upper extremity venous ultrasound and CT scan are unremarkable except for edema. No clinical evidence of compartment syndrome. Treated with Doxycycline and Ceftriaxone--and clinically resolved. Acute Lactic acidosis, 4.0. No sepsis/SIRS criteria. Normal pH and bicarb. metabolic alkalosis--d/t Lasix, monitor, resolved. Acute encephalopathy. Suspecting this is secondary to drug use (urine toxicology is positive for fentanyl, opiates and cocaine). resolved Elevated bilirubin--mild likely from passive liver congestion from fluid overload, trended down, lfts nl Hyperlipidemia. continue Lipitor HTN. BP has been difficult to control but now better on multiple meds: Hydralazine, Lisinopril, lasix, Aldactone, Coreg Substance usd disorder--addiction med consult, no withdrawal symptoms--was on methadone and addiction med has made arrangement for outpatient methadone Dispo: home with VNA Time Attestation Discharge Coordination Time (in mins): 50 Quality: Safe Use of Opioids Does Pt have an Active Cancer Diagnosis on the Problem List?: No Quality: Stroke Does the patient have a stroke diagnosis?: No Physical Exam Vital Signs: Vital Signs: Last Vital Signs Temp 97.9 F 11/30/23 11:09 Pulse 73 11/30/23 11:09 Resp 18 11/30/23 11:09 BP 140/72 H 11/30/23 11:09 Pulse Ox 100 11/30/23 11:09 O2 Del Method Room Air 11/30/23 11:09 O2 Flow Rate 2 11/25/23 00:00 BMI result Body Mass Index 31.3 General: AO X 3, no acute distress Resp: lungs clear, no dixtress CVS: S1,S2,RRR GI: +BS, NT, no distention Skin: some swelling in the arm--particulary the right Neuro: motor grossly intact Psych: appropriate affect DS: Data Data Completed and Pending Labs on day of discharge: Laboratory Results - last 24 hr 11/29/23 16:06 Sodium 139 Potassium 3.3 Chloride 103 Carbon Dioxide 27 Anion Gap 12 Discharge Plan Discharge Anticipated Discharge Date/Time: 11/30/23 12:42 Patient Disposition: Home Health Service Discharge Diagnosis: Anasarca, acute on chronic heart failure, cellulitis of the left arm Referrals: Saurabh BHATIA [Outside] - 1 Week Verna Caraballo MD [Primary Care Provider] - 1 Week Discharge Medications: New furosemide 40 mg Tablet 40 mg PO DAILY Qty: 90 0RF Protocol: Hold for SBP< HOLD for SBP < : 90 lisinopril 10 mg Tablet 10 mg PO BEDTIME Qty: 90 0RF Protocol: Hold for SBP< HOLD for SBP < : 90 spironolactone 25 mg Tablet 50 mg PO DAILY Qty: 90 0RF Protocol: Hold for SBP< HOLD for SBP < : 90 hydralazine 100 mg tablet 100 mg PO TID Qty: 90 0RF carvedilol 6.25 mg Tablet 6.25 mg PO BID Qty: 60 0RF Protocol: Hold for SBP/HR < HOLD for SBP < : 90 HOLD for HR < : 60 Continued atorvastatin 40 mg tablet 40 mg PO BEDTIME ergocalciferol (vitamin D2) 1,250 mcg (50,000 unit) capsule 1,250 mcg PO PATTERSON@0900 Discontinued carvedilol 25 mg tablet 25 mg PO BIDWM lisinopril 40 mg tablet 40 mg PO BEDTIME Discharge Orders: Discharge Order (Routine); Ordered 11/30/23 Ordered By: Lopez Gibson Diet: Advance to usual diet Activity on Discharge: As tolerated Stand Alone Forms: Patient Portal Discharge page Print Language: Zimbabwean Other Ambulatory Orders: Basic Metabolic Panel Fasting (Routine) Timeframe: 20231202 Facility: [facility] - Location: Laboratory Ordered By: Lopez Gibson Care Plan Goals: to improve symptoms, enhance quality of life, prevent disease progression, and reduce the risk of hospitalization and mortality Health Concerns: heart failure anasarca opioid use disorder Plan of Treatment: Take all your medications as directed and following up with your doctor in a week Lasix is new medication Aldactone is new mediction Hydralazine Coreg dose is reduced to 6.25 mg twice daily Lisinopril dose is reduced to 10 mg daily You will have lab work done within 2 days, follow up with your doctor in a week, avoid salty food do not drink more than 1200 cc of water a day if you notice increase weight like 2 lb a day, notify your doctor Assessment: see above Discharge Date/Time: 11/30/23 17:30
--- NOTE | 2023-11-30 13:02 | HO.ADDICTPRO ---
Subjective Subjective Date of Service: 11/30/23 Reason For Visit: Anasarca, acute encephalopathy Interim History: Patient seen in follow up Methadone dose increased to 25mg on 11/27 following patient c/o stomach cramps later in the evening. Sitting up in recliner, smiling, bright affect. Reports feeling very good . Denies any withdrawal sx. Sleeping and eating well Scheduled to discharge today. Reviewed process for continuation of methadone--presenting to [facility] tomorrow morning Patient verbalized understanding Review of Systems Constitutional: Reports as per [facility] Mental Status Exam Mental Status Exam Patient Appearance: Well Grooomed Level of Consciousness: Awake, Appropriate and Alert Patient Behavior: Appropriate and Talkative Mood Description: Calm Affect Description: Calm Speech Pattern: Clear Memory Description: Intact Thought Process: Intact Thought Content: positive for Intact Judgement: Good Diagnostics Vital Signs (24Hr): Vital Signs - 24 hr 11/29/23 15:23 11/29/23 20:00 11/29/23 20:59 Temperature 98.4 F 98.3 F Pulse Rate 87 85 Respiratory Rate 20 20 Blood Pressure 171/85 H 141/84 H 141/84 H Pulse Oximetry 96 98 Oxygen Delivery Method Room Air Room Air 11/29/23 20:59 11/30/23 00:00 11/30/23 04:00 Temperature 98.0 F 98.3 F Pulse Rate 82 85 Respiratory Rate 19 20 Blood Pressure 141/84 H Pulse Oximetry 99 98 Oxygen Delivery Method Room Air Room Air 11/30/23 07:12 11/30/23 11:09 Temperature 97.3 F 97.9 F Pulse Rate 98 73 Respiratory Rate 17 18 Blood Pressure 144/87 H 140/72 H Pulse Oximetry 97 100 Oxygen Delivery Method Room Air Room Air BMI result Body Mass Index 31.3 Labs 11/23/23 10:34 11/29/23 16:06 Labs: Laboratory Results - last 48 hr 11/28/23 11/29/23 11/29/23 18:20 07:48 16:06 Hold Purple Top SEE NOTE Sodium 141 138 139 Potassium 3.1 L 3.2 L 3.3 Chloride 102 102 103 Carbon Dioxide 29 25 27 Anion Gap 13 14 12 BUN 15 Creatinine 0.74 Estim Creat Clear Calc 112.3 Estimated GFR > 60 Random Glucose 73 Calcium 8.1 L Imaging Radiology Impressions: ITS Impressions Venous Duplex 11/20/23 15:02 IMPRESSION: No evidence of deep venous thrombosis involving the right upper extremity. Chest X-Ray 11/20/23 16:22 IMPRESSION: 1. Clear lungs. 2. Cardiac silhouette is mildly enlarged unchanged from prior. Head CT 11/20/23 20:35 IMPRESSION: 1. No acute intracranial pathology. 2. Chronic small vessel ischemic disease and volume loss. Forearm CT 11/20/23 20:37 IMPRESSION: 1. Extensive diffuse circumferential soft tissue edema involving the entirety of the visualized arm. No focal soft tissue or intramuscular fluid collection to suggest abscess. 2. Short segments of the ulnar and radial artery with diminutive opacification, though this could represent artifact. Otherwise, the below elbow arteries are patent to the hand. Clinical correlation for compartment syndrome would be helpful. Venous Duplex 11/28/23 14:45 IMPRESSION: No DVT demonstrated in the right upper extremity Probable edema in the subcutaneous soft tissues. Medications Medications Current Medications Albuterol/Ipratropium (Albuterol/Iprat 2.5/0.5mg 3 Ml Ampul.Neb) 3 ml INHALE Q4H PRN PRN Reason: Wheezing Last Admin: 11/26/23 02:11 Dose: 3 ml Atorvastatin Calcium (Atorvastatin Calcium 40 Mg Tablet) 40 mg PO BEDTIME [facility] Last Admin: 11/29/23 21:01 Dose: 40 mg Carvedilol (Carvedilol 6.25 Mg Tablet) 6.25 mg PO BIDWM [facility]; Protocol Doxycycline Monohydrate (Doxycycline Monohydrate 100 Mg Capsule) 100 mg PO Q12H [facility] Last Admin: 11/30/23 09:10 Dose: 100 mg Ergocalciferol (Ergocalciferol (Vitamin D2) 1,250 Mcg Capsule) 1,250 mcg PO Shelton@1000 [facility] Last Admin: 11/28/23 09:55 Dose: 1,250 mcg Furosemide (Furosemide 40 Mg Tablet) 40 mg PO DAILY [facility]; Protocol Last Admin: 11/30/23 09:10 Dose: 40 mg Heparin Sodium (Porcine) (Heparin Sodium,Porcine 5,000 Unit/Ml Vial) 5,000 unit SUBCUT Q8H [facility] Last Admin: 11/30/23 09:09 Dose: 5,000 unit Hydralazine HCl (Hydralazine Hcl 50 Mg Tablet) 100 mg PO TID OSCAR; Protocol Last Admin: 11/30/23 09:10 Dose: 100 mg Isosorbide Mononitrate (Isosorbide Mononitrate 30 Mg Tab.Er.24h) 30 mg PO DAILY [facility]; Protocol Last Admin: 11/30/23 09:10 Dose: 30 mg Lisinopril (Lisinopril 10 Mg Tablet) 10 mg PO BEDTIME OSCAR; Protocol Last Admin: 11/29/23 20:59 Dose: 10 mg Methadone HCl (Methadone Hcl 20 Mg/2 Ml Oral.Conc) 25 mg PO DAILY [facility] Last Admin: 11/30/23 09:09 Dose: 25 mg Sodium Chloride (0.9 % Sodium Chloride Flush 3 Ml Syringe) 3 ml IVFLUSH QSHIFT [facility] Last Admin: 11/30/23 09:10 Dose: 3 ml Spironolactone (Spironolactone 25 Mg Tablet) 50 mg PO DAILY [facility]; Protocol Last Admin: 11/30/23 09:10 Dose: 50 mg Allergies Allergies Allergy/AdvReac Type Severity Reaction Status Date / Time Penicillins [PENICILLINS] Allergy Intermediate HIVES Verified 11/20/23 12:49 Assessment & Plan Assessment & Plan (1) Opioid use disorder: Status: Acute Code(s): F11.90 - Opioid use, unspecified, uncomplicated Assessment and Plan: continue methadone outpatient at [facility] RN to provide last dose letter overdose prevention discussion Total time managing care of this patient today __15__ minutes.
[2023-11-30 13:11] VITALS: BP 134/86; PULSE 84
--- NOTE | 2023-11-30 14:03 | MHC.CM.PN ---
Second IMM given in Brazilian and discussed with freelance interpreter/translator. Pt said that he is able to arrange transportation home at [place]. Referral in to [facility] and updated.
[2023-11-30 14:29] LABS: Anion Gap 9 (12-20); Carbon Dioxide 31 mmol/L (22-29); Chloride 103 mmol/L (96-108); Potassium 3.2 mmol/L (3.3-5.1); Sodium 140 mmol/L (135-145)
--- NOTE | 2023-11-30 14:30 | W.MHC.F2F ---
Service Date Service Date: 11/30/23 Encounter Date of encounter: 11/30/23 Reasons for Services Signs and symptoms assessed: Heart failure, anasarca, cellulitis Reason for halfway: CV/CP assess and/or care, medication management and teach disease management Reason for physical therapy: home safety and mobility and therapeutic exercises Homebound: Leaving the home is medically contraindicated at this time without the asist of a device and/or another person due th the listed conditions above and below. Reason homebound: fall risk related to blood pressure changes and shortness of breath with minimal effort Homebound supporting statement: homebound due to prolonged hospitalization for shortness of breath, anasarca, possible fall and being found on the floor, exacerbation of heart failure and therefore needs the assistance of another person Certification: Based on the above findings, I certify that this patient is confined to the home and needs intermittent halfway care, physical therapy and/or speech therapy, or continues to need occupational therapy. The patient is under my care, and I have initiated the establishment of the plan of care. The patient will be followed by a physician who will periodically review the plan of care. Time Spent With Patient Time: Total time managing care of this patient today ____ minutes.
[2023-11-30 15:23] VITALS: BP 145/75; PULSE 73; RESP 18; TEMP 36.7; O2SAT 98
[2023-11-30 16:43] LABS: Blood Urea Nitrogen 16 mg/dL (9-16); Creatinine Clr Calc Pharmacy 101.4; Estimated Glomerular Filt Rate > 60; Magnesium 1.9 mg/dL (1.6-2.6)
[2023-11-30] MEDS: Potassium Chloride ER 20 MEQ TAB.ER.PRT 40 MEQ PO (17:06)
== END 2023-11-30 17:30 | disposition home health service (06) | DRG 917 ==
LOC: HO.ED 15:58 → HO.EDOVER 22:57 → HO.IMC 11-21 07:43
PROVIDERS: Nurse Practitioner Psychiatric/Mental Health; Physician Assistant; Student in an Organized Health Care Education/Training Program; Admitting Provider Internal Medicine; Emergency Provider Emergency Medicine; PCP Internal Medicine; Visit Provider Internal Medicine
DX: T40.1X1A Poisoning by heroin, accidental (unintentional), initial encounter (principal); G92.8 Other toxic encephalopathy; I50.23 Acute on chronic systolic (congestive) heart failure; L03.113 Cellulitis of right upper limb; E87.20 Acidosis, unspecified; E87.3 Alkalosis; E87.6 Hypokalemia; I11.0 Hypertensive heart disease with heart failure; E66.09 Other obesity due to excess calories; Z68.31 Body mass index [BMI] 31.0-31.9, adult; F11.90 Opioid use, unspecified, uncomplicated; K76.1 Chronic passive congestion of liver; I25.5 Ischemic cardiomyopathy; E78.5 Hyperlipidemia, unspecified; Z20.822 Contact with and (suspected) exposure to COVID-19; Z95.810 Presence of automatic (implantable) cardiac defibrillator; Z79.899 Other long term (current) drug therapy
CPT/HCPCS: 36410; 36415; 70450; 71045; 73201; 80048; 80051; 80053; 80076; 80143; 80179; 80307; 81001; 82140; 82550; 82565; 82607; 82803; 83605; 83690; 83735; 83880; 84443; 84484; 84520; 85025; 85610; 86803; 87040; 87389; 87635; 93005; 93306; 93971; 94640; 97116; 97162; 99285; C1751; J0696; J1644; J1940; J2543; J3370; J3480; P9047; Q9957; Q9967

== ENCOUNTER → 2023-11-20 18:44 | Outpatient (BNV) | payer MEDICARE, SELFPAY | PROVIDERS: Admitting Provider Internal Medicine; Emergency Provider Emergency Medicine; Visit Provider Internal Medicine Cardiovascular Disease | DX: I50.9 Heart failure, unspecified (principal) | CPT/HCPCS: 93010 ==

== ENCOUNTER 2023-11-20 22:55 | Outpatient (BNV) | payer MEDICARE, SELFPAY | END 2023-11-22 07:00 | PROVIDERS: Admitting Provider Internal Medicine; Emergency Provider Emergency Medicine; Visit Provider Internal Medicine Cardiovascular Disease | DX: I36.1 Nonrheumatic tricuspid (valve) insufficiency (principal); I34.0 Nonrheumatic mitral (valve) insufficiency; I35.1 Nonrheumatic aortic (valve) insufficiency | CPT/HCPCS: 93306 ==

== ENCOUNTER → 2023-11-20 22:55 | Outpatient (BNV) | payer MEDICARE, OTHER, SELFPAY | PROVIDERS: Admitting Provider Internal Medicine; Emergency Provider Emergency Medicine; Visit Provider Nurse Practitioner Psychiatric/Mental Health | DX: F11.90 Opioid use, unspecified, uncomplicated (principal) | CPT/HCPCS: 99222; 99231; 99232; 99499 ==

== ENCOUNTER → 2023-11-20 22:55 | Outpatient (BNV) | payer MEDICARE, SELFPAY | PROVIDERS: Admitting Provider Internal Medicine; Emergency Provider Emergency Medicine; Visit Provider Internal Medicine Cardiovascular Disease | DX: F11.90 Opioid use, unspecified, uncomplicated (principal); L03.113 Cellulitis of right upper limb; I50.9 Heart failure, unspecified | CPT/HCPCS: 99223; 99233 ==

== ENCOUNTER → 2023-11-20 22:55 | Outpatient (BNV) | payer MEDICARE, SELFPAY | PROVIDERS: Admitting Provider Internal Medicine; Emergency Provider Emergency Medicine; Visit Provider Internal Medicine | DX: I50.9 Heart failure, unspecified (principal); R60.1 Generalized edema; I25.5 Ischemic cardiomyopathy; L03.113 Cellulitis of right upper limb; F11.90 Opioid use, unspecified, uncomplicated | CPT/HCPCS: 99223; 99232; 99233; 99239; G0180 ==

== ENCOUNTER → 2024-02-01 23:59 | Outpatient (BNV) | payer MEDICARE, SELFPAY ==
--- NOTE | 2024-02-03 12:19 | A.OFFVIS_ITS ---
Intake Visit Reasons: Remote ICD check- [employer] Allergies Penicillins [PENICILLINS] Allergy (Intermediate, Verified 11/20/23 12:49) HIVES [facility] Medical History Ischemic cardiomyopathy Social History Household Members: None Housing: Apartment Do you presently have visiting nurse or other home services: No Patient Tobacco Use Status: Never used Tobacco Second Hand Smoke Exposure: No Substance Use Type: Heroin service: No Office Procedures Cardiac Device Check Cardiac Device Check Details: Date of service 02/01/2024; Battery life 2 years; normal lead parameters; no treated VT/VF; normal ICD function. [id number] Cardiac Interrogation, implant defibrillator w/interim Procedure code (CPT) selection complete Assessment & Plan Assessment & Plan (1) Ischemic cardiomyopathy: Code(s): I25.5 - Ischemic cardiomyopathy Category: Medical Plan x Coding Level of Care Code Procedure Only Diagnoses Ischemic cardiomyopathy I25.5 CPT Codes Cardiac Device Check - Cardiac Device 13: [id number] Cardiac Interrogation, implant defibrillator w/interim ([id number])
== END ==
PROVIDERS: PCP Internal Medicine; Visit Provider Internal Medicine
DX: I25.5 Ischemic cardiomyopathy (principal); Z95.810 Presence of automatic (implantable) cardiac defibrillator
CPT/HCPCS: 93295

== ENCOUNTER → 2024-08-01 23:59 | Outpatient (BNV) | payer MEDICARE, SELFPAY ==
--- NOTE | 2024-08-06 11:42 | MHC.OFFVIS ---
Intake Visit Reasons: Remote ICD check- [employer] Allergies Penicillins [PENICILLINS] Allergy (Intermediate, Verified 11/20/23 12:49) HIVES [facility] Medical History Ischemic cardiomyopathy Social History Household Members: None Housing: Apartment Do you presently have visiting nurse or other home services: No Patient Tobacco Use Status: Never used Tobacco Second Hand Smoke Exposure: No Substance Use Type: Heroin service: No Office Procedures Cardiac Device Check Cardiac Device Check Details: Date of service 08/01/2024; Battery life 1,5 years; normal lead parameters; no treated VT/VF; normal ICD function. [id number] Cardiac Interrogation, implant defibrillator w/interim Procedure code (CPT) selection complete Assessment & Plan Assessment & Plan (1) ICD (implantable cardioverter-defibrillator) in place: Code(s): Z95.810 - Presence of automatic (implantable) cardiac defibrillator Category: Medical (2) Ischemic cardiomyopathy: Code(s): I25.5 - Ischemic cardiomyopathy Category: Medical Plan x Coding Level of Care Code Procedure Only Diagnoses ICD (implantable cardioverter-defibrillator) in place Z95.810 Ischemic cardiomyopathy I25.5 CPT Codes Cardiac Device Check - Cardiac Device 13: [id number] Cardiac Interrogation, implant defibrillator w/interim ([id number])
== END ==
PROVIDERS: PCP Internal Medicine; Visit Provider Internal Medicine
DX: I25.5 Ischemic cardiomyopathy (principal); Z95.810 Presence of automatic (implantable) cardiac defibrillator
CPT/HCPCS: 93295

== ENCOUNTER 2024-08-22 14:44 | Outpatient (AMB) | payer MEDICARE, SELFPAY ==
[2024-08-22 14:46] VITALS: BP 90/60; PULSE 70; BMI 25.6
--- NOTE | 2024-08-22 14:46 | MHC.OFFVIS ---
Vital Signs 08/22/24 14:46 Height 6 ft 2 in Weight 199 lb 11.821 oz BMI 25.6 BP 90/60 Blood Pressure Location Lt brachial Position Sitting Pulse 70 Intake Visit Reasons: Overdue F/U w/ device check Cold Meat Chef Required: Yes Cold Meat Chef Name: Mary Anne [phone] Accompanied by: Self / Same As Patient Allergies Penicillins [PENICILLINS] Allergy (Intermediate, Verified 11/20/23 12:49) HIVES Medication List - Last Reconciled 08/22/24 by Gildardo Barrera NP atorvastatin 40 mg PO BEDTIME carvedilol 6.25 mg See Protocol PO BID ergocalciferol (vitamin D2) 1,250 mcg PO PATTERSON@0900 furosemide 40 mg See Protocol PO DAILY hydralazine 100 mg PO TID lisinopril 10 mg See Protocol PO BEDTIME spironolactone 50 mg See Protocol PO DAILY HPI Comments Details: This is a 78-year-old male patient who presents for an overdue follow-up visit. He is Guamanian-speaking, an director student union was utilized throughout the visit. The patient has a history of coronary artery disease in her myocardial infarction in 2009, at which time he underwent angioplasty of the LAD artery. He subsequently developed LV dysfunction and underwent another catheterization in 2012. He had in stent restenosis of the LAD stent, requiring further intervention. The patient was therefore implanted with a [employer] ICD pacemaker for the prevention of sudden cardiac . We were following the patient remotely. The patient's last office visit was in 2019. He was recently hospitalized for cellulitis with elevated blood pressures, during which he saw Dr. Valdivia. The patient never followed up after the inpatient visit. The patient reports that he has not been following up with any of his healthcare providers, including his PCP, as he states that he has been feeling well on his current medication regimen. Patient has moved back from [place] and has been residing here for a while now. Patient otherwise is denying any exertional chest pain, shortness of breath, palpitations, dizziness, fatigue, orthopnea, PND, leg edema, presyncope, or syncope. [facility] Medical History (Updated 08/22/24 @ 15:30 by Gildardo Barrera NP) Ischemic cardiomyopathy Family History (Updated 08/22/24 @ 15:08 by Beverley Harris CMA) Mother DM2 (diabetes mellitus, type 2) Social History Household Members: None Housing: Apartment Do you presently have visiting nurse or other home services: No Patient Tobacco Use Status: Never used Tobacco Second Hand Smoke Exposure: No Substance Use Type: Heroin service: No Review of Systems Const Denies chills, Denies fatigue, Denies fever(s), Denies weight gain and Denies weight loss ENT Denies dizziness Card Denies chest pain, Denies leg edema, Denies lightheadedness, Denies palpitations, Denies dyspnea on exertion, Denies orthopnea and Denies other Resp Denies cough and Denies dyspnea on exertion GI Denies hematochezia and Denies change in stool character Musc Denies abnormal gait, Denies muscle weakness, Denies numbness, Denies radiating pain into limb and Denies tingling Neuro Denies abnormal gait, Denies dizziness, Denies numbness and Denies tingling Endo Denies fatigue and Denies palpitations Physical Exam Vital Signs: Last Vital Signs Pulse 70 08/22/24 14:46 BP 90/60 08/22/24 14:46 BMI result Body Mass Index 25.6 Office Procedures EKG Details: EKG today showed a flutter with variable AV block, rate 70 beats per minute, nonspecific intraventricular block, nonspecific STT wave abnormalities, [place]. [id number], Complete Cardiac Device Check Cardiac Device Check Details: [employer] - It's what's in store single lead ICD interrogation showed battery life approximately 1 year, VVI mode, low rate of 40 ppm, RV threshold is 0.7 V at 0.4 ms, the impedances 483 Ohms, and the sensing is at 20mV. No alert, [place]. [id number] Cardiac Device Check, single lead implantable defibrillator Procedure code (CPT) selection complete Assessment & Plan Assessment & Plan (1) Atrial flutter: Code(s): I48.92 - Unspecified atrial flutter Category: Medical Plan: Patient's EKG today showed atrial flutter. No alerts on his remotes. We will start him on Eliquis 5 mg twice a day. Denies any history of falls. We will check his labs periodically. Blood pressure today is soft at 90/60. Patient states his blood pressures at home also has been around the same range. We will decrease his hydralazine from 100 to 50 mg t.i.d.. Medications reconciled with his pharmacy. (2) CAD (coronary artery disease): Code(s): I25.10 - Atherosclerotic heart disease of [place] coronary artery without angina pectoris Category: Medical Plan: No recent LDL. We will repeat lipid panel. Continue statin therapy. (3) Ischemic cardiomyopathy: Code(s): I25.5 - Ischemic cardiomyopathy Category: Medical Plan: 11/22/2023- echo showed an ejection fraction between 25-30%, LV systolic function moderately to severely decreased, severely increased LV wall thickness, hypokinetic apical anterior, apical inferior, and mid inferior segments, akinetic apical lateral segment, dyskinetic apex and apical septum segments, mildly increased RV cavity size, significantly elevated RA pressure, moderate dilation of ascending aorta at 4.40 cm. We will repeat an echocardiogram before his next visit. Continue carvedilol, Lasix, lisinopril, spironolactone, hydralazine. (4) ICD (implantable cardioverter-defibrillator) in place: Code(s): Z95.810 - Presence of automatic (implantable) cardiac defibrillator Category: Medical Plan: [employer] scientific single-chamber ICD interrogation today. As above. We will continue to monitor remotely. Orders: Orders Complete Blood Count no Diff Today I48.92 - Unspecified atrial flutter Lipid Panel Today I25.10 - Atherosclerotic heart disease of [place] coronary artery without angina pectoris Liver Panel Today I48.92 - Unspecified atrial flutter CA echo transthoracic complete Today I48.92 - Unspecified atrial flutter Basic Metabolic Panel Today I48.92 - Unspecified atrial flutter AMB EKG-In Office Today I25.5 - Ischemic cardiomyopathy Medications: New apixaban (Eliquis) 5 mg PO BID 90 tabs 3RF Changed From hydralazine 100 mg PO TID 90 tabs 0RF To hydralazine 50 mg (1/2 x 100 mg) PO TID 90 tabs 1RF Coding Level of Care Code Est Pt Level 4 (80764) Diagnoses Atrial flutter I48.92 CAD (coronary artery disease) I25.10 Ischemic cardiomyopathy I25.5 ICD (implantable cardioverter-defibrillator) in place Z95.810 CPT Codes EKG - CPT: 74923-[id number], Complete ([id number]) Cardiac Device Check - Cardiac Device 4: [id number] Cardiac Device Check, single lead implantable defibrillator ([id number]) Time Spent (min) 35 Comment Time spent in reviewing the chart, test results, assessment, counseling and documentation.
== END 2024-08-22 15:46 | disposition home or self-care (01) ==
PROVIDERS: PCP Internal Medicine
DX: I48.92 Unspecified atrial flutter (principal); I25.10 Atherosclerotic heart disease of native coronary artery without angina pectoris; I25.5 Ischemic cardiomyopathy; Z95.810 Presence of automatic (implantable) cardiac defibrillator
CPT/HCPCS: 93010; 93282; 99214

== ENCOUNTER → 2024-08-22 14:44 | Outpatient (BNVA) | payer MEDICARE, SELFPAY | PROVIDERS: PCP Internal Medicine | DX: I48.92 Unspecified atrial flutter (principal); I25.10 Atherosclerotic heart disease of native coronary artery without angina pectoris; I25.5 Ischemic cardiomyopathy; Z95.810 Presence of automatic (implantable) cardiac defibrillator | CPT/HCPCS: 93005; 99212 ==

== ENCOUNTER → 2024-09-01 14:15 | Outpatient (REF) | payer MEDICARE, SELFPAY ==
--- NOTE | 2024-09-01 14:17 | CA_ITS ---
Transthoracic Echocardiogram Patient (Last, First, Middle): Thad Simpson, Gender: Male Date of : 1945 Age: 78 Procedure Date: 09/01/2024 Procedure Type: Transthoracic Echocardiogram Location: OP Height: 180. cm Weight: 90.72 kg BSA: 2.11 m2 Heart Rate: 70 bpm BP: 105 / 65 mmHg Law Reporter: YANIQUE Referring MD: Gildardo Barrera NP Symptoms: I48.92 - Unspecified atrial flutter Study Quality: Fair w/Contrast ECG Rhythm: Atrial flutter Conclusions: - Normal left ventricular cavity size. There is mildly increased left ventricular wall thickness. The left ventricular systolic function is moderate to severely decreased. The visually estimated ejection fraction is between 25-30%. - The apical anterior and apical lateral segments are hypokinetic. - The apex segment is dyskinetic. - Mildly increased right ventricular cavity size. There is mildly decreased right ventricular systolic function. - The left atrium is severely dilated. - There is mild dilatation of the sinuses of Valsalva measuring 4.50 cm and mild dilatation of the ascending aorta measuring 4.10 cm. Findings Procedure Information Contrast agent, definity, is being given per protocol without apparent complications. Left Ventricle Normal left ventricular cavity size. There is mildly increased left ventricular wall thickness. The left ventricular systolic function is moderate to severely decreased. The visually estimated ejection fraction is between 25-30%. There is evidence of regional wall motion abnormalities. Diastolic function is indeterminate on the basis of available data. Wall Motion Rest Echo Findings The apical anterior and apical lateral segments are hypokinetic. The apex segment is dyskinetic. Right Ventricle Mildly increased right ventricular cavity size. There is mildly decreased right ventricular systolic function. There is a pacemaker wire seen in the right ventricle. Atria The left atrium is severely dilated. The right atrium is mildly dilated. Aortic Valve The aortic valve structure and function is likely normal. There is no aortic valve stenosis. There is mild aortic valve regurgitation. Mitral Valve The mitral valve appears normal. There is no mitral valve regurgitation. There is no mitral valve stenosis. Pulmonic Valve The pulmonic valve is likely normal. Tricuspid Valve Likely normal tricuspid valve structure and function. There is mild tricuspid valve regurgitation. Indeterminate right atrial pressure. PASP = 22 mm Hg + right atrial pressure. Great Vessels There is mild dilatation of the sinuses of Valsalva measuring 4.50 cm and mild dilatation of the ascending aorta measuring 4.10 cm. Venous The inferior vena cava was not well visualized. Pericardium/Pleural There is no evidence of pericardial effusion. Prior Study Comparison No significant change compared to prior study dated: 11/22/2023. Measurements 2D Linear Measurements IVSd: 1.29 0.6-0.9/0.6-1.0 cm LVIDd: 3.36 3.9-5.3/4.2-5.9 cm LVIDd Index: 1.59 2.4-3.2/2.2-3.1 cm/m2 LVIDs: 2.60 2.0-3.6 cm LVPWd: 1.26 0.7-1.1 cm LA Diam: 3.90 2.7-3.8/3.0-4.0 cm LAIDs Index: 1.85 1.5-2.3 cm/m2 LV Mass: 175.23 67-162/88-224 g LV Mass Index: 83.05 43-95/49-115 g/m2 LVOT Diam: 2.20 3.0+(-)1.3 cm 2D Systolic Function EF 4C: 32.10 >55% EF 2C: 22.10 >55% EF BiP: 24.30 >55% Mitral Valve MV Pk E: 0.87 MV Decel Time: 190.00 E'Lateral: 14.80 E'Medial: 5.19 E/E' Med: 16.80 E/E' Lat: 5.90 PHT: 56.00 MVA PHT: 3.93 Decel Hamlin: 4.59 Aortic Valve AoV Pk Ollie: 1.02 AoV Mn Ollie: 0.76 AoV VTI: 0.19 AoV Pk Grad: 4.00 Aov Mn Grad: 3.00 SOURAV Cont.VTI: 2.64 AI Pk Ollie: 3.65 AI Hamlin: 1.85 LVOT LVOT Pk Ollie: 0.71 LVOT Mn Ollie: 0.52 LVOT VTI: 0.13 LVOT Pk Grad: 2.00 LVOT Mn Grad: 1.00 LVOT Diam: 2.20 LVOT Area: 3.80 Diastolic Function MV Pk E: 0.87 E'Medial: 5.19 E/E' Med: 16.80 E' Laterial: 14.80 E/E' Lat: 5.90 Right Ventricle TAPSE (mm): 11.40 TVS' Ollie: 7.87 Tricuspid Valve TR Pk Ollie: 2.31 TR Pk Grad: 21.00 Great Vessels Aorta Sinus of Valsalva: 4.50 2.0-3.5 cm Ao Asc: 4.10 2.1-3.4 cm Pulmonary Valve PV Pk Ollie: 1.15 Peak PV Grad: 5.00 Updated in Other Vendor System with Status of Final Fracisco Valdivia MD electronically signed on 09/02/2024 6:38:04 PM with status of Final
--- OUTSIDE RECORDS SUMMARY | 2024-09-01 16:26 | XMS_ITS | Encounter Summary ---
Author Organization [facility] Address [address] [place] [address] Care Team Providers Care Clinical Therapist Name Role Phone Verna Caraballo MD Primary Care Provider + Encounter Details Date Type Department Care Team ([facility] st Contact Info) Description 07/21/2022 Orders Only [facility] [address], [place] [phone] Ericka Clarke LPN Social History Tobacco Use Types Packs/Day Years Used Date Smoking Tobacco: Never Assessed Sex and Gender Information Value Date Recorded Sex Assigned at Male 05/04/2022 10:32 AM EDT Legal Sex Male 10:32 AM EDT Gender Identity Male 05/04/2022 10:32 AM EDT Sexual Orientation Choose not to disclose 2021 10:32 AM EDT documented as of this encounter Plan of Treatment Not on file documented as of this encounter Visit Diagnoses Not on filedocumented in this encounter Care Teams Clinical Therapist Relationship Specialty Start Date End Date Verna Caraballo MD [address] [place] [address] PCP - General Family Medicine 07/01/17 documented as of this encounter
--- OUTSIDE RECORDS SUMMARY | 2024-09-01 16:26 | XMS_ITS | Encounter Summary ---
Author Organization [facility] Address [address] [place] [address] [address] [place] [address] Care Team Providers Care Patient Office Rep Name Role Phone Verna Caraballo MD Primary Care Provider + Encounter Details Date Type Department Care Team (Late st Contact Info) Description 08/12/2022 Orders Only [facility] [address] [place], [place] [phone] Ericka Clarke LPN Social History Tobacco Use Types Packs/Day Years Used Date Smoking Tobacco: Never Smokeless Tobacco: Never Alcohol Use Standard Drinks/Week Comments Not Currently 0 (1 standard drink = 0.6 oz pur e alcohol) Sex and Gender Information Value Date Recorded Sex Assigned at Male 05/04/2022 10:32 AM EDT Legal Sex Male 10:32 AM EDT Gender Identity Male 05/04/2022 10:32 AM EDT Sexual Orientation Choose not to disclose 2021 10:32 AM EDT COVID-19 Exposure Response Date Recorded In the last 10 days, have yo u been in contact with someone who was confirmed or suspected to have Coronavirus/COVID-19? No / Unsure 08/12/2022 1:33 PM EST documented as of this encounter Plan of Treatment Not on file documented as of this encounter Visit Diagnoses Not on filedocumented in this encounter Care Teams Patient Office Rep Relationship Specialty Start Date End Date Verna Caraballo MD [address] [place], [place] [phone] PCP - General Family Medicine 07/01/17 documented as of this encounter
--- OUTSIDE RECORDS SUMMARY | 2024-09-01 16:26 | XMS_ITS | Clinical Summary ---
Author Organization [employer] Address [address] [place] [address] Care Team Providers Care Manager Business Intelligence Name Role Phone Verna Caraballo MD Primary Care Provider + Allergies Active Allergy Reactions Criticality Noted Date Comments Penicillin G 06/29/2017 Other reaction(s): Rash,Itching Medications aspirin 81 MG EC tablet Take 1 tablet by mouth in the morning. Active calcium carbonate EX (Tums Extra Strength) 750 MG chewable tablet 1 tab po bid prn abd pain 9 Active mineral oil-hydrophil petrolat ointment Topical OintmentIndication s:Pruritus, unspecified,Rash and other nonspecific skin eruption APPLY TOPICALLY TO AFFECTED AREA(S) NEEDED DRY SKIN DIRECTED 454 g 1 3 Active atorvastatin (Lipitor) 40 MG tabletIndications: Mixed hyperlipidemia TAKE 1 TABLET BY MOUTH AT BEDTIME 90 tablet 2 4 Active carvedilol (Coreg) 6.25 MG tablet TAKE 1 TABLET BY MOUTH TWICE DAILY 180 tablet 1 4 Active spironolactone (Aldactone) 25 MG tablet TAKE 2 TABLETS BY MOUTH ONCE DAILY IN THE MORNING 180 tablet 1 4 Active lisinopril 10 MG tablet Take 1 tablet (10 mg) by mouth at bedtime. 90 tablet 4 Active furosemide (Lasix) 40 MG tablet Take 1 tablet (40 mg) by mouth in the morning. 90 tablet 4 Active hydrALAZINE (Apresoline) 100 MG tablet TAKE 1 TABLET BY MOUTH THREE TIMES DAILY IN THE MORNING, EVENING, AND BEDTIME 90 tablet 2 4 Active Active Problems Problem Noted Date Diagnosed Date Substance use disorder 01/11/2024 Assessment & Plan (01/11/2024 1:12 PM EDT): Pt reports 2 months without illicit substance use since establishing with methadone clinic. Ischemic cardiomyopathy with implantable cardioverter-defibrillator (ICD) 01/03/2024 Assessment & Plan (01/11/2024 1:14 PM EDT): Pt will be referred to cardiology, unable to complete EKG in office today due to machine malfunction. IFG (impaired fasting glucose) 07/28/2023 Assessment & Plan (07/28/2023 9:47 AM EST): A1c is 5.9. Counseled re more frequent low calorie/carb meals. Encouraged physical activity as tolerated. FU in 6 months. Stage 3a chronic kidney disease 07/28/2023 Assessment & Plan (01/11/2024 1:14 PM EDT): Labs ordered Assessment & Plan (07/28/2023 9:52 AM EST): No electrolyte abn. Agreed to PCV 20, I gave her info re RSV and Zoster #2 to schedule appt at pharmacy. Replace vit D, counseled to control HTN, lipids Fu labs 1x/y Anemia 05/24/2023 Assessment & Plan (05/24/2023 2:03 PM EST): Patient is unable to afford colonoscopy at this time F/u next appt Will consider cologuard Primary hypertension 05/24/2023 Assessment & Plan (01/11/2024 1:13 PM EDT): Slightly above goal today, encouraged pt to complete labs in order to adjust medication. Pt does have a excel vba developer with him and reports home bps are at goal. Denies symptoms. Assessment & Plan (07/28/2023 9:48 AM EST): Controlled, repeated is normal. Compliant w/meds. FU cardiology due to hx CHF. Continue lisinopril and carvedilol Counseled re low salt diet/increase moderate physical activity. Check home BP BIW and prn CP/ESPOSITO/BRANCH Non smoking patient. FU 6m Assessment & Plan (05/24/2023 5:36 PM EST): BP is at 140/82 Continue lisinopril Controlled. Compliant w/medse Counseled re low salt diet/increase moderate physical activity. Check home BP BIW and prn CP/ESPOSITO/BRANCH Non smoking patient. Order labs F/u in 4 weeks Arthritis of left knee 05/24/2023 Assessment & Plan (07/28/2023 9:48 AM EST): Walks with cane, counseled re risk of falls, declined PT referral. Use tylenol prn pain. Assessment & Plan (05/24/2023 2:07 PM EST): Counseled to go to acupuncture clinic Declines referral to PT Walks with a cane Will continue to take Tylenol PRN Most likely DJD Obesity (BMI 30.0-34.9) 05/24/2023 Assessment & Plan (05/24/2023 2:04 PM EST): Discussed re weight reduction options including exercise, life style modifications, diet, referral to education specialist. Discussed re lower calorie intake, increase dietary fiber Counseled for weight reduction Rule out DM and Hyperlipidemia Patient will have Influenza iz today Chronic systolic heart failure 08/12/2022 Assessment & Plan (01/11/2024 1:15 PM EDT): Taking lasix, reports adequate uop and denies any swelling. Encouraged pt to weigh self regularly, referral to cadiology Assessment & Plan (05/24/2023 5:35 PM EST): Continue carvedilol and lisinopril Will send a referral to a new cardiology Atypical chest pain 11/09/2017 Vitamin D deficiency 08/02/2017 Assessment & Plan (07/28/2023 9:41 AM EST): Restart Vit D weekly x 6m Counseled re outdoor exercise. Assessment & Plan (05/24/2023 2:01 PM EST): Check Vitamin D levels Brake Repairer Bus regarding exercise Encounters Date Type Department Care Team Description 06/16/[address] [facility] [address] [place] [address] Verna Caraballo MD from Last 3 Months Immunizations Name Administration Dates Next Due Influenza High-dose Quadrivalent Preservative Fr ee 05/24/2023 Influenza Quadrivalent Adjuvanted 03/19/2021 Influenza, High Dose Seasonal, Preservative Free 03/31/2018 Pneumococcal Conjugate PCV 20 07/28/2023 Pneumococcal Polysaccharide PPSV23 11/09/2017 Tdap 09/29/2018 Zoster, live 11/09/2017 Social History Tobacco Use Types Packs/Day Years Used Date Smoking Tobacco: Never Smokeless Tobacco: Never Tobacco Cessation:Counseling Given: Not Answered Alcohol Use Standard Drinks/Week Comments Never 0 (1 standard drink = 0.6 oz pur e alcohol) Depression Answer Date Recorded Patient Health Questionnaire-9 Score 0 09/04/2022 Housing Stability Answer Date Recorded What is your housing situation today? I have barrera ochoa 05/15/[address] you li ve. Do you have problems with any of the following? None of the above 05/15/2023 Food Insecurity Answer Date Recorded Within the past 12 months, y ou worried that your food would run out before you got money to buy more: Never True 05/15/2023 Within the past 12 months,th e food you bought just didn't last and you didn't have enough money to get more: Never True 05/2023 Transportation Answer Date Recorded In the past 12 months, has l ack of transportation kept you from medical appts, meetings, work or from getting things needed for daily living? No 05/15/2023 Utilities Answer Date Recorded In the past 12 months, has t he electric, gas, oil or water company threatened to shut off services in your home? No 05/15/2023 Depression Answer Date Recorded Patient Health Questionnaire-2 Score 0 09/04/2022 Sex and Gender Information Value Date Recorded Sex Assigned at Male 05/04/2022 10:32 AM EDT Legal Sex Male 10:32 AM EDT Gender Identity Male 05/04/2022 10:32 AM EDT Sexual Orientation Choose not to disclose 2021 10:32 AM EDT Last Filed Vital Signs Vital Sign Reading Time Taken Comments Blood Pressure 149/83 01/03/2024 1:30 PM EDT Pulse 101 01/03/2024 1:30 PM EDT Temperature 36.7 ??C (98.1 ??F) 01/03/2024 1:30 PM ED T Respiratory Rate 16 01/03/2024 1:30 PM EDT Oxygen Saturation 96% 01/03/2024 1:30 PM EDT Inhaled Oxygen Concentration - - Weight 102 kg (225 lb 6.4 oz) 01/03/2024 1:30 PM EDT Height 180.3 cm (5' 11 ) 01/03/2024 1:30 PM EDT Body Mass Index 31.44 01/03/2024 1:30 PM EDT Plan of Treatment Health Maintenance Due Date Last Done Comments Alcohol/Substance Use Screening 1957 Hepatitis C Screening 11/03/1965 Zoster Vaccines (2 of 3) 01/04/2018 11/09/2017 RSV Patients and Patients Aged 60 years or older (1 - 1-dose 75+ series) 11/03/2022 Depression Screening 09/05/2023 09/04/2022, 09/04/2022 SDOH Screening 09/05/2023 09/04/2022 COVID-19 Vaccine (1 - 2023-2 5 season) 2024 Influenza Vaccine (#1) 2024 , 03/19/2021, 03/31/2018 Tobacco Screening 01/02/2025 01/03/2024 Lipid Panel 06/03/2028 06/03/2023 DTaP/Tdap/Td Vaccines (2 - T d or Tdap) 09/29/2028 09/29/2018 Pneumococcal Vaccine: 50+ Years Completed 07/28/2023, 11/09/2017 HIB Vaccines Aged Out No longer eligi ble based on patient's age to complete this topic HPV Vaccines Aged Out No longer eligi ble based on patient's age to complete this topic Hepatitis A Vaccines Aged Out No long er eligible based on patient's age to complete this topic Hepatitis B Vaccines Aged Out No long er eligible based on patient's age to complete this topic IPV Vaccines Aged Out No longer eligi ble based on patient's age to complete this topic Meningococcal Vaccine Aged Out No madhu angelito eligible based on patient's age to complete this topic RSV under 20 months Aged Out No longe r eligible based on patient's age to complete this topic Rotavirus Vaccines Aged Out No longer eligible based on patient's age to complete this topic Procedures Procedure Name Priority Date/Time Associated Diagnosis Comments LIPID PANEL WITH REFLEX TO DIRECT LDL Routine 06/03/2023 8:55 AM EST Primary hypertension Chronic systolic heart failure (CMS/HCC) from Last 3 Months or Most Recently Relevant to Health Maintenance Results * (ABNORMAL) Lipid Panel with Reflex to Direct LDL (06/03/2023 8:55 AM EST) Triglycerides 56 <150 mg/dL [facility] Comment:Desirable Triglyceri de: less than 150 mg/dLBorderline High Triglyceride 150-199 mg/dLHigh Triglyceride: 200-499 mg/dLVery High Triglyceride: greater than or equal to 5OO mg/dL Cholesterol 94 <200 mg/dL [facility] Comment:Desirable Cholestero l: less than 200 mg/dLBorderline High Cholesterol: 200-239 mg/dLHigh Cholesterol: greater than 239 mg/dL LDL Cholesterol Calculated 52 <100 mg/dL [facility] Comment:Desirable LDL: less than 100 mg/dLNear Optimal/Above Optimal LDL: 110- 129 mg/dLBorderline High LDL: 130-159 mg/dLHigh LDL: 160-189 mg/dLVery High LDL: greater than or equal to 190 mg/dL HDL Cholesterol 31(L) >40 mg/dL [facility] Comment:Desirable HDL: great er than 40 mg/dL Note: This HDL assay may give artificially low results in patients with liver disease. Blood 06/03/2023 8:55 AM EST 06/03/2023 11:34 AM EST us Verna Caraballo MD LAB BLOOD ORDERABLES Fin al Result [facility] [address] [place] [phone] from Last 3 Months or Most Recently Relevant to Health Maintenance Insurance [facility] [place] [address] Care Teams Manager Business Intelligence Relationship Specialty Start Date End Date Verna Caraballo MD [address] [place] [phone] PCP - General Family Medicine 07/01/17
== END ==
LOC: HO.CARD 14:15
PROVIDERS: PCP Internal Medicine
DX: I48.92 Unspecified atrial flutter (principal)
CPT/HCPCS: 93306; Q9957

== ENCOUNTER → 2024-09-01 14:17 | Outpatient (BNV) | payer MEDICARE, SELFPAY | PROVIDERS: PCP Internal Medicine; Visit Provider Internal Medicine Cardiovascular Disease | DX: I51.7 Cardiomegaly (principal); I35.1 Nonrheumatic aortic (valve) insufficiency; I36.1 Nonrheumatic tricuspid (valve) insufficiency | CPT/HCPCS: 93306 ==

== ENCOUNTER → 2025-01-29 23:59 | Outpatient (BNV) | payer MEDICARE, SELFPAY ==
--- NOTE | 2025-01-30 12:39 | MHC.OFFVIS ---
Intake Visit Reasons: remote ICD check- Jono Scient Allergies Penicillins (PENICILLINS) Allergy (Intermediate, Verified 11/20/23 12:49) HIVES [facility] Medical History (Updated 08/22/24 @ 15:30 by Gildardo Barrera NP) Ischemic cardiomyopathy Family History (Updated 08/22/24 @ 15:08 by Beverley Harris CMA) Mother DM2 (diabetes mellitus, type 2) Social History Household Members: None Housing: Apartment Do you presently have visiting nurse or other home services: No Patient Tobacco Use Status: Never used Tobacco Second Hand Smoke Exposure: No Substance Use Type: Heroin service: No Office Procedures Cardiac Device Check Cardiac Device Check Details: Date of service 01/29/2025; Battery life 1 year; normal lead parameters; no treated VT/VF; normal ICD function. [id number] Cardiac Interrogation, implant defibrillator w/interim Procedure code (CPT) selection complete Assessment & Plan Assessment & Plan (1) ICD (implantable cardioverter-defibrillator) in place: Code(s): Z95.810 - Presence of automatic (implantable) cardiac defibrillator Category: Medical (2) Ischemic cardiomyopathy: Code(s): I25.5 - Ischemic cardiomyopathy Category: Medical (3) Atrial flutter: Code(s): I48.92 - Unspecified atrial flutter Category: Medical Plan x Coding Level of Care Code Procedure Only Diagnoses ICD (implantable cardioverter-defibrillator) in place Z95.810 Ischemic cardiomyopathy I25.5 Atrial flutter I48.92 CPT Codes Cardiac Device Check - Cardiac Device 13: [id number] Cardiac Interrogation, implant defibrillator w/interim ([id number])
== END ==
PROVIDERS: PCP Internal Medicine; Visit Provider Internal Medicine
DX: I25.5 Ischemic cardiomyopathy (principal); Z95.810 Presence of automatic (implantable) cardiac defibrillator; I48.92 Unspecified atrial flutter
CPT/HCPCS: 93295

== ENCOUNTER → 2025-05-01 23:59 | Outpatient (BNV) | payer MEDICARE, SELFPAY ==
--- NOTE | 2025-05-06 15:54 | MHC.OFFVIS ---
Intake Visit Reasons: remote ICD check- Jono Scient Allergies Penicillins (PENICILLINS) Allergy (Intermediate, Verified 11/20/23 12:49) HIVES [facility] Medical History (Updated 08/22/24 @ 15:30 by Gildardo Barrera NP) Ischemic cardiomyopathy Family History (Updated 08/22/24 @ 15:08 by Beverley Harris CMA) Mother DM2 (diabetes mellitus, type 2) Social History Household Members: None Housing: Apartment Do you presently have visiting nurse or other home services: No Patient Tobacco Use Status: Never used Tobacco Second Hand Smoke Exposure: No Substance Use Type: Heroin service: No Office Procedures Cardiac Device Check Cardiac Device Check Details: Date of service 05/01/2025; Battery life 3 months; normal lead parameters; no treated VT/VF; normal ICD function. [id number] Cardiac Interrogation, implant defibrillator w/interim Procedure code (CPT) selection complete Assessment & Plan Assessment & Plan (1) ICD (implantable cardioverter-defibrillator) in place: Code(s): Z95.810 - Presence of automatic (implantable) cardiac defibrillator Category: Medical (2) Ischemic cardiomyopathy: Code(s): I25.5 - Ischemic cardiomyopathy Category: Medical Plan x Coding Level of Care Code Procedure Only Diagnoses ICD (implantable cardioverter-defibrillator) in place Z95.810 Ischemic cardiomyopathy I25.5 CPT Codes Cardiac Device Check - Cardiac Device 13: [id number] Cardiac Interrogation, implant defibrillator w/interim ([id number])
== END ==
PROVIDERS: PCP Internal Medicine; Visit Provider Internal Medicine
DX: I25.5 Ischemic cardiomyopathy (principal); Z95.810 Presence of automatic (implantable) cardiac defibrillator
CPT/HCPCS: 93295

== ENCOUNTER → 2025-06-05 09:24 | Outpatient (BNV) | payer MEDICARE, SELFPAY | PROVIDERS: PCP Internal Medicine; Visit Provider Internal Medicine | DX: I25.5 Ischemic cardiomyopathy (principal); Z95.810 Presence of automatic (implantable) cardiac defibrillator | CPT/HCPCS: 93295 ==

== ENCOUNTER → 2025-06-10 14:21 | Outpatient (BNV) | payer MEDICARE, SELFPAY | PROVIDERS: PCP Internal Medicine; Visit Provider Internal Medicine | DX: Z45.02 Encounter for adjustment and management of automatic implantable cardiac defibrillator (principal) | CPT/HCPCS: 93297 ==